=== PATIENT | female | born 1995 | race Caucasian/White ===

== ENCOUNTER 2017-04-26 11:37 | Emergency (ER) | payer SELFPAY ==
[~2017-04-26] VITALS: Ht 160 cm; Wt 68.0 kg
[~2017-04-26 11:37] MED LIST: ACHD5005 PO; ACHYD1T PO; BIRTH CONTROL; CYCL10TA9 PO; IBP600T1 PO; IBUP800T26 PO; LEVO750T6 PO; METR70GE8 VG; NAPR500T PO; NITR-65 PO; OMEP10CA4 PO; ONDA-42 SL; PRD20T PO; PREN-115 PO; SCR1T PO
[2017-04-26] MEDS ORDERED: DEXT30TA12 PO (12:07)
[2017-04-26] MEDS ORDERED: LIDOCAINE 1% INJ 20 ML (XYLOCAINE) VIAL INJ ONE (12:15)
[2017-04-26] MEDS ORDERED: cefTRIAXone 1 GM (ROCEPHIN) VIAL IM ONE (12:15)
[2017-04-26] MEDS ORDERED: HYDR-757 PO (12:16)
[2017-04-26] MEDS ORDERED: ONDA8TAB9 PO (12:16)
[2017-04-26] MEDS ORDERED: AMOX-358 PO (12:16)
--- NOTE | 2017-04-26 12:17 | ED EENT ---
History of Present Illness General Chief Complaint: Dental Problems/Pain Stated Complaint: R SIDE FACIAL SWELLING/DENTAL PAIN Nursing Triage Note: c/o right sided dental pain with facial swelling. Onset 1 week ago. Source: patient Exam Limitations: no limitations History of Present Illness Time seen by provider: 12:13 Initial Comments To ER with right mandible swelling since last night. He is had pain to this location but without swelling for about a month. No fevers. She was delaying seeing a dentist until her dental insurance kicked in with her new job Timing/Duration: abrupt Severity: moderate Location: facial Associated Symptoms: denies symptoms Allergies and Home Medications Allergies Coded Allergies: No Known Drug Allergies (Unverified , 12/07/09) Home Medications Dextroamphetamine/Amphetamine 30 Mg Tablet, 30 MG PO DAILY, #60 (Reported) Review of Systems Constitutional: see HPI Eyes: No Symptoms Reported Ears: No Symptoms Reported Nose: no symptoms reported Mouth: see HPI Throat: no symptoms reported Respiratory: no symptoms reported Cardiovascular: no symptoms reported Past Zlpvysu-Jnlcef-Ybpqgw Hx Patient Social History Alcohol Use: Rarely Uses Recreational Drug Use: No Smoking Status: Current Everyday Smoker Type Used: Cigarettes Recent Foreign Travel: No Contact w/Someone Who Travel: No Recent Infectious Disease Expo: No Recent Hopitalizations: No Seasonal Allergies Seasonal Allergies: No Surgeries HX Surgeries: Yes Surgeries: Gallbladder Respiratory Hx Respiratory Disorders: No Cardiovascular Hx Cardiac Disorders: No Neurological Hx Neurological Disorders: No Reproductive System Hx Reproductive Disorders: No Sexually Transmitted Disease: No HIV/AIDS: No Genitourinary Hx Genitourinary Disorders: No Gastrointestinal Hx Gastrointestinal Disorders: Yes Gastrointestinal Disorders: Gastroesophageal Reflux Musculoskeletal Hx Musculoskeletal Disorders: No Endocrine Hx Endocrine Disorders: No HEENT HX ENT Disorders: No Cancer Hx Cancer: No Psychosocial Hx Psychiatric Problems: No Integumentary HX Skin/Integumentary Disorder: No Blood Transfusions Hx Blood Disorders: No Family Medical History Significant Family History: No Pertinent Family Hx Physical Exam Vital Signs Vital Sign - Last 12Hours 04/26/17 11:57 Temp 97.5 Pulse 70 Resp 16 B/P (MAP) 118/70 O2 Delivery Room Air General Appearance: WD/WN, no apparent distress Eyes: bilateral eye EOMI, bilateral eye PERRL, bilateral eye normal inspection Ears: bilateral ear auricle normal, bilateral ear canal normal Nose: normal inspection, active bleeding Mouth/Throat: other (there is swelling visible to the exterior right mandible. There is some induration to the buccal mucosa of the right side of the mandible however there is no fluctuance to suggest a drainable abscess.) Neck: non-tender, full range of motion Respiratory: no respiratory distress, no accessory muscle use Gastrointestinal: normal bowel sounds, non tender, soft Neurologic/Psychiatric: alert, normal mood/affect, oriented x 3 Skin: normal color, warm/dry Progress/Results/Core Measures Results/Orders My Orders Orders - LUIS NAGY APRN Ceftriaxone Injection (Rocephin Injectio (04/26/17 12:15) Lidocaine 1% Injection (Xylocaine 1% Inj (04/26/17 12:15) Vital Signs/I&O Vital Sign - Last 12Hours 04/26/17 11:57 Temp 97.5 Pulse 70 Resp 16 B/P (MAP) 118/70 O2 Delivery Room Air Blood Pressure Mean: 86 Departure Impression Impression: Primary Impression: Dental abscess Disposition: 01 HOME, SELF-CARE Condition: Stable Departure-Patient Inst. Decision time for Depature: 12:15 Referrals: NOA BLAKE MD (PCP/Family) Primary Care Physician Patient Instructions: Tooth Abscess (DC) Add. Discharge Instructions: 1. Return to ER for any concerns such as worsening swelling or fevers 2. See your dentist next week 3. Antibiotics as directed All discharge instructions reviewed with patient and/or family. Voiced understanding. Scripts Hydrocodone/Acetaminophen ([place]ark[place] 5-325 Tablet) 1 Each Tablet 1 EACH PO Q4H Y for PAIN-MILD TO MODERATE, #10 TAB Prov: LUIS NAGY APRN 04/26/17 Ondansetron (Zofran Odt) 8 Mg Tab.rapdis 8 MG PO Q4H Y for NAUSEA/VOMITING-1ST LINE, #10 TAB Prov: LUIS NAGY APRN 04/26/17 Amoxicillin/Potassium Clav (Augmentin 875-125 Tablet) 1 Each Tablet 1 EACH PO BID, #14 TAB Prov: LUIS NAGY APRN 04/26/17 LUIS NAGY APRN Apr 26, 2017 12:17
[2017-04-26 12:35] VITALS: BP 113/68
--- OUTSIDE RECORDS SUMMARY | 2017-04-29 13:21 | XMS REPORT ---
Author Author MAXIMUS DIAS Organization [employer] Address Unknown Phone Unavailable Care Team Providers Care Loading Dock Hand Name Role Phone MAXIMUS DIAS CP Unavailable Allergies, Adverse Reactions, Alerts Substance Reaction Event Type N.K.D.A. Info Not Available Non Drug Allergy Problems Problem Type Condition Code Onset Dates Condition Status Problem Supervision of normal first V22.0 Active Problem Screening examination for venereal disease V74.5 Active Problem Need for prophylactic vaccination and inoculation against rubella alone V04.3 Active Problem Unspecified disorder of menstruation and other abnormal bleeding from female genital tract 626.9 Active Problem Other specified symptom associated with female genital organs 625.8 Active Problem Major depressive disorder, recurrent episode, moderate 296.32 Active Problem Nausea alone 787.02 Active Problem Other general counseling and advice for contraceptive management V25.09 Active Problem Surveillance of previously prescribed intrauterine contraceptive device V25.42 Active Problem examination or test, positive result V72.42 Active Assessment Dental examination V72.2 Active Problem Encounter for insertion of intrauterine contraceptive device V25.11 Active Problem Maternal mental disorders, complicating , childbirth, or the puerperium, unspecified as to episode of care 648.40 Active Medications No Known Medications Procedures Procedure Coding System Code Date INTRAORL-PERIAPICAL 1 FILM 42223 CPT-4 D0220 Jul 17, 2015 BITEWING - SINGLE FILM CPT-4 D0270 Jul 17, 2015 LTD ORAL EVALUATION - PROBLEM FOCUS CPT-4 D0140 Jul 17, 2015 EXTRAC ERUPTED TOOTH/EXPOSED ROOT CPT-4 D7140 Jul 17, 2015 Vital Signs Date/Time: Jul 17, 2015 Blood Pressure Diastolic 89 mmHg Blood Pressure Systolic 115 mmHg Results No Known Results Summary Purpose [employer] Submission
== END 2017-04-26 12:35 | disposition home or self-care (01) ==
LOC: EDUNIT# 11:37 → ER 11:40
DX: K21.9 Gastro-esophageal reflux disease without esophagitis (principal); K04.7 Periapical abscess without sinus; F17.210 Nicotine dependence, cigarettes, uncomplicated
CPT/HCPCS: 96372; 99282

== ENCOUNTER 2018-01-28 11:32 | Emergency (ER) | payer SELFPAY ==
[~2018-01-28] VITALS: Ht 160 cm; Wt 68.1 kg
[~2018-01-28 11:32] MED LIST changes: +AMOX-358 PO; +DEXT30TA12 PO; +HYDR-757 PO; +NAPR-1071 PO; -NAPR500T PO; +ONDA8TAB9 PO
[2018-01-28] MEDS ORDERED: AMPH30TA2 PO (11:48)
[2018-01-28] MEDS ORDERED: fentaNYL INJECTION 100 MCG/2 ML AMP IVP ONE (12:00)
[2018-01-28] MEDS ORDERED: ONDANSETRON 4 MG/2 ML (SDV) Z0FRAN IVP ONE (12:00)
--- NOTE | 2018-01-28 12:10 | ED Abdominal Pain ---
General Chief Complaint: Abdominal/GI Problems Stated Complaint: RT SIDE PAIN/NAUSEA Nursing Triage Note: TO EXAM ROOM 9 C/O RLQ ABD PAIN THAT STARTED 3 DAYS AGO. TO ALSO HAD N/V. STATES PAIN IS WORSE WITH MOVEMENT ET LYING STILL. PT. ALSO STATES HAS HAD FLU-LIKE SXS FOR MONTH. DID TAKE ZPACK FOR LAST TWO WEEKS. STATES STILL HAS COUGH. Sepsis Screen: Possible Sepsis Risk Source of Information: Patient Exam Limitations: No Limitations History of Present Illness Date Seen by Provider: Jan 28, 2018 Time Seen by Provider: 12:09 Initial Comments To ER with reports of right lower quadrant abdominal pain for the past 2-3 days. Pain is worsened with movement and occasionally radiates to the midline suprapubic area. She has had some urinary frequency and thought initially that this might just be a bladder infection. She took cranberry juice and has been drinking extra water but denies any improvement in symptoms. No fevers or chills. No bowel changes. She does have nausea but no vomiting. Timing/Duration: 2-3 Days Severity/Quality: Moderate Location: RLQ Radiation: No Radiation Activities at Onset: None Allergies and Home Medications Allergies Coded Allergies: No Known Drug Allergies (Unverified , 12/07/09) Home Medications Dextroamphetamine/Amphetamine 30 Mg Tablet, 30 MG PO BID, (Reported) Hydrocodone/Acetaminophen 1 Each Tablet, 1 EACH PO Q4H PRN for PAIN-MILD TO MODERATE Prescribed by: LUIS NAGY on 04/26/17 1216 Patient Home Medication List Home Medication List Reviewed: Yes Review of Systems Constitutional: see HPI EENTM: No Symptoms Reported Respiratory: No Symptoms Reported Cardiovascular: No Symptoms Reported Gastrointestinal: See HPI, Abdominal Pain, Denies Constipated, Denies Diarrhea , Nausea, Denies Vomiting Genitourinary: See HPI, Frequency Musculoskeletal: no symptoms reported Skin: no symptoms reported Endocrine: No Symptoms Reported Past Qyjhxhi-Ndsehk-Svuaie Hx Patient Social History Alcohol Use: Rarely Uses Recreational Drug Use: No Smoking Status: Current Everyday Smoker Type Used: Cigarettes Recent Foreign Travel: No Contact w/Someone Who Travel: No Recent Infectious Disease Expo: No Recent Hopitalizations: No Physical Abuse: No Sexual Abuse: No Seasonal Allergies Seasonal Allergies: No Surgeries History of Surgeries: Yes Surgeries: Gallbladder Respiratory History of Respiratory Disorde: No Cardiovascular History of Cardiac Disorders: No Neurological History of Neurological Disord: No Reproductive System Hx Reproductive Disorders: No Sexually Transmitted Disease: No HIV/AIDS: No Genitourinary History of Genitourinary Disor: No Gastrointestinal History of Gastrointestinal Di: Yes Gastrointestinal Disorders: Gastroesophageal Reflux Musculoskeletal History of Musculoskeletal Dis: No Endocrine History of Endocrine Disorders: No Cancer History of Cancer: No Psychosocial History of Psychiatric Problem: No Suicide Risk Score: 0 Integumentary History of Skin or Integumenta: No Blood Transfusions History of Blood Disorders: No Family Medical History Significant Family History: No Pertinent Family Hx Physical Exam Vital Signs VS - Last 72 Hours, by Label 01/28/18 11:35 Temp 96.8 Pulse 94 Resp 18 B/P (MAP) 137/88 (104) Pulse Ox 100 O2 Delivery Room Air Capillary Refill : Less Than 3 Seconds General Appearance: WD/WN, no apparent distress HEENT: PERRL/EOMI, normal ENT inspection Neck: non-tender, full range of motion Respiratory: no respiratory distress, no accessory muscle use Gastrointestinal: normal bowel sounds, soft, No guarding, No rebound, tenderness Extremities: normal range of motion, non-tender Neurologic/Psychiatric: alert, normal mood/affect, oriented x 3 Skin: normal color, warm/dry Progress/Results/Core Measures Results/Orders Lab Results Laboratory Tests Test 01/28/18 11:56 Range/Units White Blood Count 9.4 4.3-11.0 10^3/uL Red Blood Count 3.94 L 4.35-5.85 10^6/uL Hemoglobin 12.8 11.5-16.0 G/DL Hematocrit 38 35-52 % Mean Corpuscular Volume 96 80-99 FL Mean Corpuscular Hemoglobin 33 25-34 PG Mean Corpuscular Hemoglobin Concent 34 32-36 G/DL Red Cell Distribution Width 15.0 H 10.0-14.5 % Platelet Count 292 130-400 10^3/uL Mean Platelet Volume 9.9 7.4-10.4 FL Neutrophils (%) (Auto) 67 42-75 % Lymphocytes (%) (Auto) 24 12-44 % Monocytes (%) (Auto) 9 0-12 % Eosinophils (%) (Auto) 1 0-10 % Basophils (%) (Auto) 0 0-10 % Neutrophils # (Auto) 6.2 1.8-7.8 X 10^3 Lymphocytes # (Auto) 2.2 1.0-4.0 X 10^3 Monocytes # (Auto) 0.8 0.0-1.0 X 10^3 Eosinophils # (Auto) 0.1 0.0-0.3 10^3/uL Basophils # (Auto) 0.0 0.0-0.1 10^3/uL Urine Color YELLOW Urine Clarity SLIGHTLY CLOUDY Urine pH 7 5-9 Urine Specific [place] 1.010 L 1.016-1.022 Urine Protein NEGATIVE NEGATIVE Urine Glucose (UA) NEGATIVE NEGATIVE Urine Ketones NEGATIVE NEGATIVE Urine Nitrite NEGATIVE NEGATIVE Urine Bilirubin NEGATIVE NEGATIVE Urine Urobilinogen NORMAL NORMAL MG/DL Urine Leukocyte Esterase 1+ H NEGATIVE Urine RBC (Auto) NEGATIVE NEGATIVE Urine RBC NONE /HPF Urine WBC RARE /HPF Urine Squamous Epithelial Cells 5-10 /HPF Urine Crystals PRESENT H /LPF Urine Amorphous Sediment LARGE SATINDER PHOSPHATE H /LPF Urine Bacteria TRACE /HPF Urine Casts NONE /LPF Urine Mucus NEGATIVE /LPF Urine Culture Indicated NO Sodium Level 139 135-145 MMOL/L Potassium Level 3.5 L 3.6-5.0 MMOL/L Chloride Level 104 98-107 MMOL/L Carbon Dioxide Level 25 21-32 MMOL/L Anion Gap 10 5-14 MMOL/L Blood Urea Nitrogen 9 7-18 MG/DL Creatinine 0.73 0.60-1.30 MG/DL Estimat Glomerular Filtration Rate > 60 BUN/Creatinine Ratio 12 Glucose Level 92 70-105 MG/DL Calcium Level 9.4 8.5-10.1 MG/DL Total Bilirubin 0.2 0.1-1.0 MG/DL Aspartate Amino Transf (AST/SGOT) 19 5-34 U/L Alanine Aminotransferase (ALT/SGPT) 14 0-55 U/L Alkaline Phosphatase 52 40-136 U/L Total Protein 6.6 6.4-8.2 GM/DL Albumin 4.1 3.2-4.5 GM/DL My Orders Orders - LUIS NAGY [employer] Ua Culture If Indicated (01/28/18 11:49) Urine Bedside (01/28/18 11:49) Cbc With Automated Diff (01/28/18 11:49) Comprehensive Metabolic Panel (01/28/18 11:49) Saline Lock/Iv-Start (01/28/18 11:49) Fentanyl Injection (Sublimaze Injection (01/28/18 12:00) Ondansetron Injection (Zofran Injectio (01/28/18 12:00) Ct Abd/Pelv W (Appendicitis) (01/28/18 11:59) Iohexol Injection (Omnipaque 350 Mg/Ml 1 (01/28/18 12:15) Sodium Chloride Flush (Catheter Flush Sy (01/28/18 12:15) Ns (Ivpb) (Sodium Chloride 0.9%) (01/28/18 12:15) Pharmacy Communication (Pharmacy Communi (01/28/18 12:02) Wet Prep (01/28/18 13:02) Neisseria Gonorrhea Dna (01/28/18 13:02) Chlamydia Dna (01/28/18 13:02) Genital Culture (01/28/18 13:02) Medications Given in ED Current Medications Medications Dose Ordered Sig/Trudy Route Start Time Stop Time Status Last Admin Dose Admin Fentanyl Citrate 50 mcg ONCE ONCE IVP 01/28/18 12:00 01/28/18 12:01 DC 01/28/18 12:09 50 MCG Iohexol 100 ml ONCE ONCE IV 01/28/18 12:15 01/28/18 12:16 DC 01/28/18 12:23 100 ML Ondansetron HCl 4 mg ONCE ONCE IVP 01/28/18 12:00 01/28/18 12:01 DC 01/28/18 12:10 4 MG Sodium Chloride 250 ml ONCE ONCE IV 01/28/18 12:15 01/28/18 12:16 DC 01/28/18 12:23 80 ML Vital Signs/I&O Vital Sign - Last 12Hours 01/28/18 11:35 Temp 96.8 Pulse 94 Resp 18 B/P (MAP) 137/88 (104) Pulse Ox 100 O2 Delivery Room Air Blood Pressure Mean: 104 Diagnostic Imaging Diagonstic Imaging: CT Plain Films/CT/US/NM/MRI: abdomen, pelvis Comments NAME: ANNE OATES Sayda [facility] REC#: [id number] PT STATUS: REG ER : 1995 PHYSICIAN: LUIS NAGY APRN ADMIT DATE: 01/28/18/ER Signed Date of Exam:01/28/18 CT ABD/PELV W (APPENDICITIS) PROCEDURE: CT abdomen and pelvis with contrast, rule out appendicitis. TECHNIQUE: Multiple contiguous axial images were obtained through the abdomen and pelvis after the administration of intravenous contrast. INDICATION: Right-sided abdominal pain for 3 days. COMPARISON: 12/20/2013 FINDINGS: Lower chest: The lung bases are clear. No pericardial or pleural effusion. Peritoneum: Trace free pelvic fluid. No free intraperitoneal air. Liver and biliary system: Focal fatty infiltration along the falciform ligament. Otherwise, liver is normal. Cholecystectomy. No biliary duct dilatation. Spleen and Pancreas: Spleen is normal. The pancreas enhances normally without mass lesion or peripancreatic inflammatory changes. Adrenals: Normal. tract: The kidneys enhance normally without suspicious mass or obstruction. Urinary bladder is distended without wall thickening. Uterus and ovaries are physiologic in appearance for patient's age. There are numerous mildly dilated vessels around the uterus. GI tract: Stomach is decompressed. No bowel obstruction. No pericolonic inflammatory changes. Normal appendix (seen on image 43, series 4). Vasculature and Lymph nodes: Normal caliber aorta. No abdominal or pelvic lymphadenopathy. Musculoskeletal: No concerning osseous lesion. IMPRESSION: 1. No acute obstructive or inflammatory process in the abdomen or pelvis. Normal appendix. 2. Trace free pelvic fluid is likely physiologic in a female of this age. Dictated by: Dictated on workstation # [id number] Dict: 01/28/18 1245 Trans: 01/28/18 1259 [facility] [id number] Interpreted by: NIGHAT HERNANDEZ MD Electronically signed by: NIGHAT HERNANDEZ MD 01/28/18 1259 Departure Communication (Admissions) Progress Notes 1310- patient does have improvement in pain though there is still some residual pain. She states that her menstrual periods have been very irregular since her 2 sisters moved into the house with her and she believes she may be getting on their menstrual cycle in addition to her own. She is not on control. She has had no unusual vaginal discharge. I did discuss with her the normal-appearing labs urine and CT scan. The next step would be to do a pelvic exam and cervical swabs however she does not feel that is the problem and would rather not do that at this time. I did advise her to follow-up with Dr. Blake to discuss control to help regulate her menstrual cycles this is a persistent problem for her and for further evaluation of this. She also asks about a bladder infection that she may have fallen out on her own without antibiotics and is just having some residual cystitis without infection. That would be unlikely but not impossible. We will discharge to home at this time she has no further questions. Impression Impression: Primary Impression: Right lower quadrant abdominal pain Disposition: 01 HOME, SELF-CARE Condition: Improved Departure-Patient Inst. Decision time for Depature: 13:11 Referrals: NOA BLAKE MD (PCP/Family) Primary Care Physician Patient Instructions: Acute Abdomen (Belly Pain), Adult (DC) Add. Discharge Instructions: 1. Return to ER for any unusual vaginal discharge, worsening pain, fevers or other concerns. All discharge instructions reviewed with patient and/or family. Voiced understanding. Copy Copies To 1: NOA BLAKE MD, PETER J APRN Jan 28, 2018 12:10
[2018-01-28 12:15] LABS: BASOPHILS % (AUTO) 0 % (0-10); EOSINOPHILS # (AUTO) 0.1 10^3/uL (0.0-0.3); EOSINOPHILS % (AUTO) 1 % (0-10); HEMATOCRIT 38 % (35-52); HEMOGLOBIN 12.8 G/DL (11.5-16.0); LYMPHOCYTES # (AUTO) 2.2 X 10^3 (1.0-4.0); LYMPHOCYTES % (AUTO) 24 % (12-44); MEAN CORPUSCULAR HEMOGLOBIN 33 PG (25-34); MEAN CORPUSCULAR HGB CONC 34 G/DL (32-36); MEAN CORPUSCULAR VOLUME 96 FL (80-99); MEAN PLATELET VOLUME 9.9 FL (7.4-10.4); MONOCYTES # (AUTO) 0.8 X 10^3 (0.0-1.0); MONOCYTES % (AUTO) 9 % (0-12); NEUTROPHILS # (AUTO) 6.2 X 10^3 (1.8-7.8); NEUTROPHILS % (AUTO) 67 % (42-75); PLATELET COUNT 292 10^3/uL (130-400); RED BLOOD COUNT 3.94 10^6/uL (4.35-5.85); WHITE BLOOD COUNT 9.4 10^3/uL (4.3-11.0)
[2018-01-28] MEDS ORDERED: NS 250 ML (IVPB) BAG IV ONE (12:15)
[2018-01-28] MEDS ORDERED: IOHEXOL 350 MG/ML 100 ML (OMNIPAQUE 350) VIAL IV ONE (12:15)
[2018-01-28] MEDS ORDERED: CATHETER FLUSH 10 ML SYR IV PRN (12:15)
[2018-01-28 12:19] LABS: BILIRUBIN,URINE NEGATIVE (NEGATIVE); CLARITY,URINE SLIGHTLY CLOUDY; COLOR,URINE YELLOW; GLUCOSE, URINE (UA) NEGATIVE (NEGATIVE); KETONES,URINE NEGATIVE (NEGATIVE); LEUKOCYTE ESTERASE ,URINE 1+ (NEGATIVE); NITRITE,URINE NEGATIVE (NEGATIVE); PH,URINE 7 (5-9); PROTEIN,URINE NEGATIVE (NEGATIVE); UROBILINOGEN,URINE NORMAL (NORMAL)
[2018-01-28 12:35] LABS: ALANINE AMINOTRANSFERASE 14 U/L (0-55); ALBUMIN 4.1 GM/DL (3.2-4.5); ALKALINE PHOSPHATASE 52 U/L (40-136); BILIRUBIN,TOTAL 0.2 MG/DL (0.1-1.0); BUN/CREATININE RATIO 12; CALCIUM 9.4 MG/DL (8.5-10.1); CARBON DIOXIDE 25 MMOL/L (21-32); CHLORIDE 104 MMOL/L (98-107); CREATININE SERUM 0.73 MG/DL (0.60-1.30); GFR ESTIMATED > 60; GLUCOSE 92 MG/DL (70-105); POTASSIUM 3.5 MMOL/L (3.6-5.0); SODIUM 139 MMOL/L (135-145); TOTAL PROTEIN 6.6 GM/DL (6.4-8.2)
[2018-01-28 12:38] LABS: AMORPHOUS SEDIMENT,UR LARGE AMOR PHOSPHATE /LPF; BACTERIA,URINE TRACE /HPF; WBC,URINE RARE /HPF
--- NOTE | 2018-01-28 12:56 | Diagnostic Imaging Report ---
PROCEDURE: CT abdomen and pelvis with contrast, rule out appendicitis. TECHNIQUE: Multiple contiguous axial images were obtained through the abdomen and pelvis after the administration of intravenous contrast. INDICATION: Right-sided abdominal pain for 3 days. COMPARISON: 12/20/2013 FINDINGS: Lower chest: The lung bases are clear. No pericardial or pleural effusion. Peritoneum: Trace free pelvic fluid. No free intraperitoneal air. Liver and biliary system: Focal fatty infiltration along the falciform ligament. Otherwise, liver is normal. Cholecystectomy. No biliary duct dilatation. Spleen and Pancreas: Spleen is normal. The pancreas enhances normally without mass lesion or peripancreatic inflammatory changes. Adrenals: Normal. tract: The kidneys enhance normally without suspicious mass or obstruction. Urinary bladder is distended without wall thickening. Uterus and ovaries are physiologic in appearance for patient's age. There are numerous mildly dilated vessels around the uterus. GI tract: Stomach is decompressed. No bowel obstruction. No pericolonic inflammatory changes. Normal appendix (seen on image 43, series 4). Vasculature and Lymph nodes: Normal caliber aorta. No abdominal or pelvic lymphadenopathy. Musculoskeletal: No concerning osseous lesion. IMPRESSION: 1. No acute obstructive or inflammatory process in the abdomen or pelvis. Normal appendix. 2. Trace free pelvic fluid is likely physiologic in a female of this age. Dictated by: Dictated on workstation # [id number]
[2018-01-28 13:15] VITALS: BP 137/88
== END 2018-01-28 13:15 | disposition home or self-care (01) ==
LOC: EDUNIT# 11:32 → ER 11:34
DX: R10.31 Right lower quadrant pain (principal); K21.9 Gastro-esophageal reflux disease without esophagitis; F17.210 Nicotine dependence, cigarettes, uncomplicated
CPT/HCPCS: 36415; 74177; 80053; 81000; 84703; 85025; 96374; 96375

== ENCOUNTER 2018-11-19 11:49 | Emergency (ER) | payer SELFPAY, OTHER | END 2018-11-19 12:06 | disposition left against medical advice (07) | LOC: ER 11:49 ==

== ENCOUNTER 2019-05-24 08:54 | Emergency (ER) | payer MEDICAID, OTHER ==
[~2019-05-24] VITALS: Ht 180.3 cm; Wt 72.6 kg
[~2019-05-24 08:54] MED LIST changes: +AMPH30TA2 PO; +HYDR-4226 PO; -HYDR-757 PO
--- OUTSIDE RECORDS SUMMARY | 2019-05-24 08:59 | XMS REPORT ---
Author Author Migration, Doctor Organization [facility] Address Unknown Phone Unavailable Care Team Providers Care Nematology Teacher Name Role Phone Migration, Doctor Unavailable Unavailable PROBLEMS Type Condition ICD9-CM Code [id number] Code Onset Dates Condition Status SNOMED Code Problem Other general counseling and advice for contraceptive management V25.09 Active 567327828 Problem examination or test, positive result V72.42 Active 095028290 Problem Need for prophylactic vaccination and inoculation against rubella alone V04.3 Active 433208017 Problem Encounter for insertion of intrauterine contraceptive device V25.11 Active 61686098 Problem Maternal mental disorders, complicating , childbirth, or the puerperium, unspecified as to episode of care 648.40 Active 175473101 Problem Surveillance of previously prescribed intrauterine contraceptive device V25.42 Active 910117076128245 Problem Major depressive disorder, recurrent episode, moderate 296.32 Active 31770687 Problem Screening examination for venereal disease V74.5 Active 687195993 Problem Supervision of normal first V22.0 Active 760290902 Problem Nausea alone 787.02 Active 099741806 Problem Unspecified disorder of menstruation and other abnormal bleeding from female genital tract 626.9 Active 122530866 Problem Other specified symptom associated with female genital organs 625.8 Active 179599823 ALLERGIES No Information ENCOUNTERS Encounter Location Date Diagnosis [facility] [id number] [place] [address] Oct, Abdominal pain R10.9 [facility] [id number] [place] [id number] Apr, Dental examination Z01.20 and Dental caries K02.9 [facility] [id number] [place] [address] Jan, Acute vomiting R11.10 and Acute diarrhea R19.7 [facility] [address] [id number] Jun, Dental examination V72.2 [facility] [place] [facility] [address] [id number] [place] [address] 14 Jan, 2015 [facility] [place] [facility] [address] [id number] [place] [address] Jan, [facility] [place] [facility] [address] [id number] [place] [address] Mar, [facility] [place] [facility] [address] [id number] [place] [address] Mar, [facility] [place] [facility] [address] [id number] [place] [address] Jan, [facility] [place] [facility] [address] [id number] [place] [address] Jan, [facility] [place] [facility] [address] [id number] [place] [address] Jan, [facility] [place] [facility] [address] [id number] [place] [address] Jan, [facility] [place] [facility] [address] [id number] [place] [address] Jan, [facility] [place] [facility] [address] [id number] [place] [address] 16 Jan, 2014 [facility] [place] [facility] [address] [id number], [place] [address] 14 Jan, 2014 [facility] [place] [facility] [address] [id number], [place] [address] 10 Jan, 2014 [facility] [place] [facility] [address] [id number] [place] [address] 10 Jan, 2014 [facility] [place] [facility] [address] [id number], [place] [address] 08 Jan, 2014 [facility] [place] [facility] [address] [id number] [place] [address] 08 Jan, 2014 [facility] [place] [facility] [address] [id number] [place] [address] Jan, [facility] [place] [facility] [address] [id number] [place] [address] Jan, [facility] [place] [facility] [address] [id number] [place] [address] Dec, [facility] [place] [facility] [address] [id number] [place] [address] Dec, [facility] [place] [facility] [address] [id number] [place] [address] Dec, [facility] [place] [facility] [address] [id number] [place] [address] Dec, [facility] [place] [facility] [address] [facility] [id number] [place] [address] Dec, [facility] [place] [facility] [address] [id number] [place] [address] Dec, [facility] [place] [facility] [address] [id number] [place] [address] Nov, [facility] [place] [facility] [address] [facility] [id number] [place] [address] Nov, [facility] [place] [facility] [address] [facility] [id number] [place] [address] Nov, [facility] [place] [facility] [address] [facility] [id number] [place] [address] Nov, [facility] [place] [facility] [address] [id number] [place] [address] Nov, [facility] [place] [facility] [address] [id number] [place] [address] Nov, [facility] [place] [facility] [address] [facility] [id number] [place] [address] Oct, [facility] [place] [facility] [address] [id number] [place] [address] Oct, [facility] [place] [facility] [address] [id number] [place] [address] Jul, [facility] [place] [facility] [address] [id number] [place] [address] Jul, [facility] [place] [facility] [address] [id number] [place] [address] Jul, [facility] [place] [facility] [address] [id number] [place] [address] Jul, [facility] [place] [facility] [address] [id number] [place] [address] Jun, [facility] [place] [facility] [address] [id number] [place] [address] May, [facility] [place] [facility] [address] [id number] [place] [address] Apr, [facility] [place] [facility] [address] [id number] [place] [address] Apr, [facility] [place] [facility] [address] [id number] [place] [address] Apr, [facility] [place] [facility] [address] [id number] [place] [address] Mar, [facility] [place] [facility] [address] [id number], [place] [address] Mar, [facility] [place] [facility] [address] [id number], [place] [address] Mar, [facility] [place] [facility] [address] [id number] [place] [address] Mar, [facility] [place] [facility] [address] [id number] [place] [address] Mar, [facility] [place] [facility] [address] [id number] [place] [address] Mar, [facility] [place] [facility] [address] [id number], [place] [address] Mar, [facility] [address] [facility] [id number], [place] [address] February, [facility] [address] [facility] [id number], [place] [address] February, [facility] [address], [place] [address] February, [facility] [address] [facility] [id number], [place] [address] February, [facility] [address]65[address], [place] [address] February, [facility] [address], [place] [address] February, [facility] [address], [place] [address] February, [facility] [address], [place] [address] February, [facility] [address], [place] [address] Jul, [facility] [address] [id number], [place] [address] Jul, IMMUNIZATIONS No Known Immunizations SOCIAL HISTORY Never Assessed REASON FOR VISIT [facility] PLAN OF CARE VITAL SIGNS MEDICATIONS No Known Medications RESULTS No Results PROCEDURES No Known procedures INSTRUCTIONS MEDICATIONS ADMINISTERED No Known Medications MEDICAL (GENERAL) HISTORY Type Description Date Medical History ADD Surgical History Gallbladder removed
--- OUTSIDE RECORDS SUMMARY | 2019-05-24 08:59 | XMS REPORT ---
Author Author Migration, Doctor Organization [facility] Address Unknown Phone Unavailable Care Team Providers Care Audit Director Name Role Phone Migration, Doctor Unavailable Unavailable PROBLEMS Type Condition ICD9-CM Code UUG62-DL Code Onset Dates Condition Status SNOMED Code Problem Other general counseling and advice for contraceptive management V25.09 Active 096525207 Problem examination or test, positive result V72.42 Active 601859670 Problem Need for prophylactic vaccination and inoculation against rubella alone V04.3 Active 062837642 Problem Encounter for insertion of intrauterine contraceptive device V25.11 Active 42297139 Problem Maternal mental disorders, complicating , childbirth, or the puerperium, unspecified as to episode of care 648.40 Active 943222793 Problem Surveillance of previously prescribed intrauterine contraceptive device V25.42 Active 543047802948948 Problem Major depressive disorder, recurrent episode, moderate 296.32 Active 59243392 Problem Screening examination for venereal disease V74.5 Active 304884404 Problem Supervision of normal first V22.0 Active 653353545 Problem Nausea alone 787.02 Active 733750174 Problem Unspecified disorder of menstruation and other abnormal bleeding from female genital tract 626.9 Active 577328601 Problem Other specified symptom associated with female genital organs 625.8 Active 410192639 ALLERGIES No Information ENCOUNTERS Encounter Location Date Diagnosis [facility] [id number] [place] [address] Oct, Abdominal pain R10.9 [facility] [id number] [place] [id number] Apr, Dental examination Z01.20 and Dental caries K02.9 [facility] [id number] [place] [address] Jan, Acute vomiting R11.10 and Acute diarrhea R19.7 [facility] [address] [id number] Jun, Dental examination V72.2 [facility] [place] [facility] [address] [id number] [place] [address] 14 Jan, 2015 [facility] [place] [facility] [address] [id number] [place] [address] Jan, [facility] [place] [facility] [address] [id number] [place] [address] Mar, [facility] [place] [facility] [address] [id number] [place] [address] Mar, [facility] [place] [facility] [address] [id number] [place] [address] Jan, [facility] [place] [facility] [address] [id number] [place] [address] Jan, [facility] [place] [facility] [address] [id number] [place] [address] Jan, [facility] [place] [facility] [address] [id number] [place] [address] Jan, [facility] [place] [facility] [address] [id number] [place] [address] Jan, [facility] [place] [facility] [address] [id number] [place] [address] 16 Jan, 2014 [facility] [place] [facility] [address] [id number], [place] [address] 14 Jan, 2014 [facility] [place] [facility] [address] [id number], [place] [address] 10 Jan, 2014 [facility] [place] [facility] [address] [id number] [place] [address] 10 Jan, 2014 [facility] [place] [facility] [address] [id number], [place] [address] 08 Jan, 2014 [facility] [place] [facility] [address] [id number] [place] [address] 08 Jan, 2014 [facility] [place] [facility] [address] [id number] [place] [address] Jan, [facility] [place] [facility] [address] [id number] [place] [address] Jan, [facility] [place] [facility] [address] [id number] [place] [address] Dec, [facility] [place] [facility] [address] [id number] [place] [address] Dec, [facility] [place] [facility] [address] [id number] [place] [address] Dec, [facility] [place] [facility] [address] [id number] [place] [address] Dec, [facility] [place] [facility] [address] [facility] [id number] [place] [address] Dec, [facility] [place] [facility] [address] [id number] [place] [address] Dec, [facility] [place] [facility] [address] [id number] [place] [address] Nov, [facility] [place] [facility] [address] [facility] [id number] [place] [address] Nov, [facility] [place] [facility] [address] [facility] [id number] [place] [address] Nov, [facility] [place] [facility] [address] [facility] [id number] [place] [address] Nov, [facility] [place] [facility] [address] [id number] [place] [address] Nov, [facility] [place] [facility] [address] [id number] [place] [address] Nov, [facility] [place] [facility] [address] [facility] [id number] [place] [address] Oct, [facility] [place] [facility] [address] [id number] [place] [address] Oct, [facility] [place] [facility] [address] [id number] [place] [address] Jul, [facility] [place] [facility] [address] [id number] [place] [address] Jul, [facility] [place] [facility] [address] [id number] [place] [address] Jul, [facility] [place] [facility] [address] [id number] [place] [address] Jul, [facility] [place] [facility] [address] [id number] [place] [address] Jun, [facility] [place] [facility] [address] [id number] [place] [address] May, [facility] [place] [facility] [address] [id number] [place] [address] Apr, [facility] [place] [facility] [address] [id number] [place] [address] Apr, [facility] [place] [facility] [address] [id number] [place] [address] Apr, [facility] [place] [facility] [address] [id number] [place] [address] Mar, [facility] [place] [facility] [address] [id number], [place] [address] Mar, [facility] [place] [facility] [address] [id number], [place] [address] Mar, [facility] [place] [facility] [address] [id number] [place] [address] Mar, [facility] [place] [facility] [address] [id number] [place] [address] Mar, [facility] [place] [facility] [address] [id number] [place] [address] Mar, [facility] [place] [facility] [address] [id number], [place] [address] Mar, [facility] [id number], [place] [address] February, [facility] [address], [place] [address] February, [facility] [address], [place] [address] February, [facility] [address], [place] [address] February, [facility] [address], [place] [address] February, [facility] [address], [place] [address] February, [facility] [address], [place] [address] February, [facility] [address], [place] [address] February, [facility] [address], [place] [address] Jul, [facility] [id number], [place] [address] Jul, IMMUNIZATIONS No Known Immunizations SOCIAL HISTORY Never Assessed REASON FOR VISIT [facility] PLAN OF CARE VITAL SIGNS MEDICATIONS Medication Instructions Dosage Frequency Start Date End Date Duration Status Diflucan 150 mg take 1 tablet by Oral route once 1 time per day . Start after doxycycline Jan, Active Doxycycline Hyclate 100 mg take 1 tablet (100 mg) by oral route 2 times per day for 7 days Jan, Active Zoloft 50 mg 1 tablet by Oral route 1 time per day Dec, Active Flagyl 500 mg 1 tablet by Oral route 2 times per day for 7 days Dec, Active Adderall 15 mg take 1 tablet (15 mg) by oral route once daily before breakfast Jan, Active RESULTS No Results PROCEDURES No Known procedures INSTRUCTIONS MEDICATIONS ADMINISTERED No Known Medications MEDICAL (GENERAL) HISTORY Type Description Date Medical History ADD Surgical History Gallbladder removed
--- OUTSIDE RECORDS SUMMARY | 2019-05-24 08:59 | XMS REPORT ---
Author Author Migration, Doctor Organization [facility] Address Unknown Phone Unavailable Care Team Providers Care Central Office Installer Name Role Phone Migration, Doctor Unavailable Unavailable PROBLEMS Type Condition ICD9-CM Code [id number] Code Onset Dates Condition Status SNOMED Code Problem Other general counseling and advice for contraceptive management V25.09 Active 271479679 Problem examination or test, positive result V72.42 Active 898064660 Problem Need for prophylactic vaccination and inoculation against rubella alone V04.3 Active 678265508 Problem Encounter for insertion of intrauterine contraceptive device V25.11 Active 10017884 Problem Maternal mental disorders, complicating , childbirth, or the puerperium, unspecified as to episode of care 648.40 Active 850460295 Problem Surveillance of previously prescribed intrauterine contraceptive device V25.42 Active 383586480688644 Problem Major depressive disorder, recurrent episode, moderate 296.32 Active 99916908 Problem Screening examination for venereal disease V74.5 Active 325215034 Problem Supervision of normal first V22.0 Active 983682790 Problem Nausea alone 787.02 Active 416939288 Problem Unspecified disorder of menstruation and other abnormal bleeding from female genital tract 626.9 Active 623645561 Problem Other specified symptom associated with female genital organs 625.8 Active 675323485 ALLERGIES No Information ENCOUNTERS Encounter Location Date Diagnosis [facility] [id number] [place] [address] Oct, Abdominal pain R10.9 [facility] [id number] [place] [id number] Apr, Dental examination Z01.20 and Dental caries K02.9 [facility] [id number] [place] [address] Jan, Acute vomiting R11.10 and Acute diarrhea R19.7 [facility] [address] [id number] Jun, Dental examination V72.2 [facility] [place] [facility] [address] [id number] [place] [address] 14 Jan, 2015 [facility] [place] [facility] [address] [id number] [place] [address] Jan, [facility] [place] [facility] [address] [id number] [place] [address] Mar, [facility] [place] [facility] [address] [id number] [place] [address] Mar, [facility] [place] [facility] [address] [id number] [place] [address] Jan, [facility] [place] [facility] [address] [id number] [place] [address] Jan, [facility] [place] [facility] [address] [id number] [place] [address] Jan, [facility] [place] [facility] [address] [id number] [place] [address] Jan, [facility] [place] [facility] [address] [id number] [place] [address] Jan, [facility] [place] [facility] [address] [id number] [place] [address] 16 Jan, 2014 [facility] [place] [facility] [address] [id number], [place] [address] 14 Jan, 2014 [facility] [place] [facility] [address] [id number], [place] [address] 10 Jan, 2014 [facility] [place] [facility] [address] [id number] [place] [address] 10 Jan, 2014 [facility] [place] [facility] [address] [id number], [place] [address] 08 Jan, 2014 [facility] [place] [facility] [address] [id number] [place] [address] 08 Jan, 2014 [facility] [place] [facility] [address] [id number] [place] [address] Jan, [facility] [place] [facility] [address] [id number] [place] [address] Jan, [facility] [place] [facility] [address] [id number] [place] [address] Dec, [facility] [place] [facility] [address] [id number] [place] [address] Dec, [facility] [place] [facility] [address] [id number] [place] [address] Dec, [facility] [place] [facility] [address] [id number] [place] [address] Dec, [facility] [place] [facility] [address] [facility] [id number] [place] [address] Dec, [facility] [place] [facility] [address] [id number] [place] [address] Dec, [facility] [place] [facility] [address] [id number] [place] [address] Nov, [facility] [place] [facility] [address] [facility] [id number] [place] [address] Nov, [facility] [place] [facility] [address] [facility] [id number] [place] [address] Nov, [facility] [place] [facility] [address] [facility] [id number] [place] [address] Nov, [facility] [place] [facility] [address] [id number] [place] [address] Nov, [facility] [place] [facility] [address] [id number] [place] [address] Nov, [facility] [place] [facility] [address] [facility] [id number] [place] [address] Oct, [facility] [place] [facility] [address] [id number] [place] [address] Oct, [facility] [place] [facility] [address] [id number] [place] [address] Jul, [facility] [place] [facility] [address] [id number] [place] [address] Jul, [facility] [place] [facility] [address] [id number] [place] [address] Jul, [facility] [place] [facility] [address] [id number] [place] [address] Jul, [facility] [place] [facility] [address] [id number] [place] [address] Jun, [facility] [place] [facility] [address] [id number] [place] [address] May, [facility] [place] [facility] [address] [id number] [place] [address] Apr, [facility] [place] [facility] [address] [id number] [place] [address] Apr, [facility] [place] [facility] [address] [id number] [place] [address] Apr, [facility] [place] [facility] [address] [id number] [place] [address] Mar, [facility] [place] [facility] [address] [id number], [place] [address] Mar, [facility] [place] [facility] [address] [id number], [place] [address] Mar, [facility] [place] [facility] [address] [id number] [place] [address] Mar, [facility] [place] [facility] [address] [id number] [place] [address] Mar, [facility] [place] [facility] [address] [id number] [place] [address] Mar, [facility] [place] [facility] [address] [id number] [address] Mar, [facility] [address] [facility] [id number], [place] [address] February, [facility] [address] [facility] [id number], [place] [address] February, [facility] [id number] [address] February, [facility] [address] [facility] [id number], [place] [address] February, [facility] [id number], [place] [address] February, [facility] [id number], [place] [address] February, [facility] [id number], [place] [address] February, [facility] [id number], [place] [address] February, [facility] [id number], [place] [address] Jul, [facility] [address] [id number], [place] [address] Jul, IMMUNIZATIONS No Known Immunizations SOCIAL HISTORY Never Assessed REASON FOR VISIT [facility] [place] PLAN OF CARE VITAL SIGNS MEDICATIONS No Known Medications RESULTS No Results PROCEDURES No Known procedures INSTRUCTIONS MEDICATIONS ADMINISTERED No Known Medications MEDICAL (GENERAL) HISTORY Type Description Date Medical History ADD Surgical History Gallbladder removed
--- OUTSIDE RECORDS SUMMARY | 2019-05-24 09:00 | XMS REPORT ---
Author Author Migration, Doctor Organization [facility] Address Unknown Phone Unavailable Care Team Providers Care Sales/Marketing Name Role Phone Migration, Doctor Unavailable Unavailable PROBLEMS Type Condition ICD9-CM Code SGA60-HM Code Onset Dates Condition Status SNOMED Code Problem Other general counseling and advice for contraceptive management V25.09 Active 040539120 Problem examination or test, positive result V72.42 Active 685770869 Problem Need for prophylactic vaccination and inoculation against rubella alone V04.3 Active 327646916 Problem Encounter for insertion of intrauterine contraceptive device V25.11 Active 53245244 Problem Maternal mental disorders, complicating , childbirth, or the puerperium, unspecified as to episode of care 648.40 Active 586514534 Problem Surveillance of previously prescribed intrauterine contraceptive device V25.42 Active 121923145581942 Problem Major depressive disorder, recurrent episode, moderate 296.32 Active 13462037 Problem Screening examination for venereal disease V74.5 Active 455639068 Problem Supervision of normal first V22.0 Active 136529712 Problem Nausea alone 787.02 Active 757111686 Problem Unspecified disorder of menstruation and other abnormal bleeding from female genital tract 626.9 Active 900263534 Problem Other specified symptom associated with female genital organs 625.8 Active 206804513 ALLERGIES No Information ENCOUNTERS Encounter Location Date Diagnosis [facility] [id number] [place] [address] Oct, Abdominal pain R10.9 [facility] [id number] [place] [id number] Apr, Dental examination Z01.20 and Dental caries K02.9 [facility] [id number] [place] [address] Jan, Acute vomiting R11.10 and Acute diarrhea R19.7 [facility] [address] [id number] Jun, Dental examination V72.2 [facility] [place] [facility] [address] [id number] [place] [address] 14 Jan, 2015 [facility] [place] [facility] [address] [id number] [place] [address] Jan, [facility] [place] [facility] [address] [id number] [place] [address] Mar, [facility] [place] [facility] [address] [id number] [place] [address] Mar, [facility] [place] [facility] [address] [id number] [place] [address] Jan, [facility] [place] [facility] [address] [id number] [place] [address] Jan, [facility] [place] [facility] [address] [id number] [place] [address] Jan, [facility] [place] [facility] [address] [id number] [place] [address] Jan, [facility] [place] [facility] [address] [id number] [place] [address] Jan, [facility] [place] [facility] [address] [id number] [place] [address] 16 Jan, 2014 [facility] [place] [facility] [address] [id number] [address] 14 Jan, 2014 [facility] [place] [facility] [address] [id number], [place] [address] 10 Jan, 2014 [facility] [place] [facility] [address] [id number] [place] [address] 10 Jan, 2014 [facility] [place] [facility] [address] [id number][place] [address] 08 Jan, 2014 [facility] [place] [facility] [address] [id number] [place] [address] 08 Jan, 2014 [facility] [place] [facility] [address] [id number] [place] [address] Jan, [facility] [place] [facility] [address] [id number] [place] [address] Jan, [facility] [place] [facility] [address] [id number] [place] [address] Dec, [facility] [place] [facility] [address] [id number] [place] [address] Dec, [facility] [place] [facility] [address] [id number] [place] [address] Dec, [facility] [place] [facility] [address] [id number] [place] [address] Dec, [facility] [place] [facility] [address] [facility] [id number] [place] [address] Dec, [facility] [place] [facility] [address] [id number] [place] [address] Dec, [facility] [place] [facility] [address] [id number] [place] [address] Nov, [facility] [place] [facility] [address] [facility] [id number] [place] [address] Nov, [facility] [place] [facility] [address] [facility] [id number] [place] [address] Nov, [facility] [place] [facility] [address] [facility] [id number] [place] [address] Nov, [facility] [place] [facility] [address] [id number] [place] [address] Nov, [facility] [place] [facility] [address] [id number] [place] [address] Nov, [facility] [place] [facility] [address] [facility] [id number] [place] [address] Oct, [facility] [place] [facility] [address] [id number] [place] [address] Oct, [facility] [place] [facility] [address] [id number] [place] [address] Jul, [facility] [place] [facility] [address] [id number] [place] [address] Jul, [facility] [place] [facility] [address] [id number] [place] [address] Jul, [facility] [place] [facility] [address] [id number] [place] [address] Jul, [facility] [place] [facility] [address] [id number] [place] [address] Jun, [facility] [place] [facility] [address] [id number] [place] [address] May, [facility] [place] [facility] [address] [id number] [place] [address] Apr, [facility] [place] [facility] [address] [id number] [place] [address] Apr, [facility] [place] [facility] [address] [id number] [place] [address] Apr, [facility] [place] [facility] [address] [id number] [place] [address] Mar, [facility] [place] [facility] [address] [id number], [place] [address] Mar, [facility] [place] [facility] [address] [id number], [place] [address] Mar, [facility] [place] [facility] [address] [id number] [place] [address] Mar, [facility] [place] [facility] [address] [id number] [place] [address] Mar, [facility] [place] [facility] [address] [id number] [place] [address] Mar, [facility] [place] [facility] [address] [id number], [place] [address] Mar, [facility] [address] [facility] [id number], [place] [address] February, [facility] [address] [facility] [id number], [place] [address] February, [facility] [address]00565[address], [place] [address] February, [facility] [address] [facility] [id number], [place] [address] February, [facility] [address]00565[place], [place] [address] February, [facility] [address]00565[place], [place] [address] February, [facility] [address]65[address], [place] [address] February, [facility] [address]65100[place], [place] [address] February, [facility] [address]65[address], [place] [address] Jul, [facility] [address] [id number], [place] [address] Jul, IMMUNIZATIONS No Known Immunizations SOCIAL HISTORY Never Assessed REASON FOR VISIT [facility] [place] VITAL SIGNS MEDICATIONS No Known Medications RESULTS No Results PROCEDURES No Known procedures INSTRUCTIONS MEDICATIONS ADMINISTERED No Known Medications MEDICAL (GENERAL) HISTORY Type Description Date Medical History ADD Surgical History Gallbladder removed
--- OUTSIDE RECORDS SUMMARY | 2019-05-24 09:00 | XMS REPORT ---
Author Author Migration, Doctor Organization [facility] Address Unknown Phone Unavailable Care Team Providers Care Head Baggage Porter Name Role Phone Migration, Doctor Unavailable Unavailable PROBLEMS Type Condition ICD9-CM Code [id number] Code Onset Dates Condition Status SNOMED Code Problem Other general counseling and advice for contraceptive management V25.09 Active 484569459 Problem examination or test, positive result V72.42 Active 757815334 Problem Need for prophylactic vaccination and inoculation against rubella alone V04.3 Active 487372795 Problem Encounter for insertion of intrauterine contraceptive device V25.11 Active 62593791 Problem Maternal mental disorders, complicating , childbirth, or the puerperium, unspecified as to episode of care 648.40 Active 717834797 Problem Surveillance of previously prescribed intrauterine contraceptive device V25.42 Active 212801171610839 Problem Major depressive disorder, recurrent episode, moderate 296.32 Active 50009393 Problem Screening examination for venereal disease V74.5 Active 734424938 Problem Supervision of normal first V22.0 Active 426470982 Problem Nausea alone 787.02 Active 546938282 Problem Unspecified disorder of menstruation and other abnormal bleeding from female genital tract 626.9 Active 809979228 Problem Other specified symptom associated with female genital organs 625.8 Active 045336601 ALLERGIES No Information ENCOUNTERS Encounter Location Date Diagnosis [facility] [id number] [place] [address] Oct, Abdominal pain R10.9 [facility] [id number] [place] [id number] Apr, Dental examination Z01.20 and Dental caries K02.9 [facility] [id number] [place] [address] Jan, Acute vomiting R11.10 and Acute diarrhea R19.7 [facility] [address] [id number] Jun, Dental examination V72.2 [facility] [place] [facility] [address] [id number] [place] [address] 14 Jan, 2015 [facility] [place] [facility] [address] [id number] [place] [address] Jan, [facility] [place] [facility] [address] [id number] [place] [address] Mar, [facility] [place] [facility] [address] [id number] [place] [address] Mar, [facility] [place] [facility] [address] [id number] [place] [address] Jan, [facility] [place] [facility] [address] [id number] [place] [address] Jan, [facility] [place] [facility] [address] [id number] [place] [address] Jan, [facility] [place] [facility] [address] [id number] [place] [address] Jan, [facility] [place] [facility] [address] [id number] [place] [address] Jan, [facility] [place] [facility] [address] [id number] [place] [address] 16 Jan, 2014 [facility] [place] [facility] [address] [id number] [address] 14 Jan, 2014 [facility] [place] [facility] [address] [id number] [address] 10 Jan, 2014 [facility] [place] [facility] [address] [id number] [place] [address] 10 Jan, 2014 [facility] [place] [facility] [address] [id number] [address] 08 Jan, 2014 [facility] [place] [facility] [address] [id number] [place] [address] 08 Jan, 2014 [facility] [place] [facility] [address] [id number] [place] [address] Jan, [facility] [place] [facility] [address] [id number] [place] [address] Jan, [facility] [place] [facility] [address] [id number] [place] [address] Dec, [facility] [place] [facility] [address] [id number] [place] [address] Dec, [facility] [place] [facility] [address] [id number] [place] [address] Dec, [facility] [place] [facility] [address] [id number] [place] [address] Dec, [facility] [place] [facility] [address] [facility] [id number] [place] [address] Dec, [facility] [place] [facility] [address] [id number] [place] [address] Dec, [facility] [place] [facility] [address] [id number] [place] [address] Nov, [facility] [place] [facility] [address] [facility] [id number] [place] [address] Nov, [facility] [place] [facility] [address] [facility] [id number] [place] [address] Nov, [facility] [place] [facility] [address] [facility] [id number] [place] [address] Nov, [facility] [place] [facility] [address] [id number] [place] [address] Nov, [facility] [place] [facility] [address] [id number] [place] [address] Nov, [facility] [place] [facility] [address] [facility] [id number] [place] [address] Oct, [facility] [place] [facility] [address] [id number] [place] [address] Oct, [facility] [place] [facility] [address] [id number] [place] [address] Jul, [facility] [place] [facility] [address] [id number] [place] [address] Jul, [facility] [place] [facility] [address] [id number] [place] [address] Jul, [facility] [place] [facility] [address] [id number] [place] [address] Jul, [facility] [place] [facility] [address] [id number] [place] [address] Jun, [facility] [place] [facility] [address] [id number] [place] [address] May, [facility] [place] [facility] [address] [id number] [place] [address] Apr, [facility] [place] [facility] [address] [id number] [place] [address] Apr, [facility] [place] [facility] [address] [id number] [place] [address] Apr, [facility] [place] [facility] [address] [id number] [place] [address] Mar, [facility] [place] [facility] [address] [id number] [address] Mar, [facility] [place] [facility] [address] [id number] [address] Mar, [facility] [place] [facility] [address] [id number] [place] [address] Mar, [facility] [place] [facility] [address] [id number] [place] [address] Mar, [facility] [place] [facility] [address] [id number] [place] [address] Mar, [facility] [place] [facility] [address] [id number] [address] Mar, [facility] [address] [facility] [id number] [place] [address] February, [facility] [address] [facility] [id number] [place] [address] February, [facility] [address]00565100[place] [address] February, [facility] [address] [facility] [id number] [place] [address] February, [facility] [address]00565100[place] [address] February, [facility] [address]00565100[place] [address] February, [facility] [address]00565100[place] [address] February, [facility] [address]00565100[place] [address] February, [facility] [address]00565100[place] [address] Jul, [facility] [address] [id number] [address] Jul, IMMUNIZATIONS No Known Immunizations SOCIAL HISTORY Never Assessed REASON FOR VISIT [facility] [place] PLAN OF CARE VITAL SIGNS MEDICATIONS No Known Medications RESULTS No Results PROCEDURES No Known procedures INSTRUCTIONS MEDICATIONS ADMINISTERED No Known Medications MEDICAL (GENERAL) HISTORY Type Description Date Medical History ADD Surgical History Gallbladder removed
--- OUTSIDE RECORDS SUMMARY | 2019-05-24 09:00 | XMS REPORT ---
Author Author Migration, Doctor Organization [facility] Address Unknown Phone Unavailable Care Team Providers Care Circulation Crew Leader Name Role Phone Migration, Doctor Unavailable Unavailable PROBLEMS Type Condition ICD9-CM Code [id number] Code Onset Dates Condition Status SNOMED Code Problem Other general counseling and advice for contraceptive management V25.09 Active 463980773 Problem examination or test, positive result V72.42 Active 261968981 Problem Need for prophylactic vaccination and inoculation against rubella alone V04.3 Active 134376400 Problem Encounter for insertion of intrauterine contraceptive device V25.11 Active 12752551 Problem Maternal mental disorders, complicating , childbirth, or the puerperium, unspecified as to episode of care 648.40 Active 904586473 Problem Surveillance of previously prescribed intrauterine contraceptive device V25.42 Active 504906708667379 Problem Major depressive disorder, recurrent episode, moderate 296.32 Active 69589267 Problem Screening examination for venereal disease V74.5 Active 279886504 Problem Supervision of normal first V22.0 Active 242230299 Problem Nausea alone 787.02 Active 207569767 Problem Unspecified disorder of menstruation and other abnormal bleeding from female genital tract 626.9 Active 961624312 Problem Other specified symptom associated with female genital organs 625.8 Active 262476737 ALLERGIES No Information ENCOUNTERS Encounter Location Date Diagnosis [facility] [id number] [place] [address] Oct, Abdominal pain R10.9 [facility] [id number] [place] [id number] Apr, Dental examination Z01.20 and Dental caries K02.9 [facility] [id number] [place] [address] Jan, Acute vomiting R11.10 and Acute diarrhea R19.7 [facility] [address] [id number] Jun, Dental examination V72.2 [facility] [place] [facility] [address] [id number] [place] [address] 14 Jan, 2015 [facility] [place] [facility] [address] [id number] [place] [address] Jan, [facility] [place] [facility] [address] [id number] [place] [address] Mar, [facility] [place] [facility] [address] [id number] [place] [address] Mar, [facility] [place] [facility] [address] [id number] [place] [address] Jan, [facility] [place] [facility] [address] [id number] [place] [address] Jan, [facility] [place] [facility] [address] [id number] [place] [address] Jan, [facility] [place] [facility] [address] [id number] [place] [address] Jan, [facility] [place] [facility] [address] [id number] [place] [address] Jan, [facility] [place] [facility] [address] [id number] [place] [address] 16 Jan, 2014 [facility] [place] [facility] [address] [id number], [place] [address] 14 Jan, 2014 [facility] [place] [facility] [address] [id number], [place] [address] 10 Jan, 2014 [facility] [place] [facility] [address] [id number] [place] [address] 10 Jan, 2014 [facility] [place] [facility] [address] [id number], [place] [address] 08 Jan, 2014 [facility] [place] [facility] [address] [id number] [place] [address] 08 Jan, 2014 [facility] [place] [facility] [address] [id number] [place] [address] Jan, [facility] [place] [facility] [address] [id number] [place] [address] Jan, [facility] [place] [facility] [address] [id number] [place] [address] Dec, [facility] [place] [facility] [address] [id number] [place] [address] Dec, [facility] [place] [facility] [address] [id number] [place] [address] Dec, [facility] [place] [facility] [address] [id number] [place] [address] Dec, [facility] [place] [facility] [address] [facility] [id number] [place] [address] Dec, [facility] [place] [facility] [address] [id number] [place] [address] Dec, [facility] [place] [facility] [address] [id number] [place] [address] Nov, [facility] [place] [facility] [address] [facility] [id number] [place] [address] Nov, [facility] [place] [facility] [address] [facility] [id number] [place] [address] Nov, [facility] [place] [facility] [address] [facility] [id number] [place] [address] Nov, [facility] [place] [facility] [address] [id number] [place] [address] Nov, [facility] [place] [facility] [address] [id number] [place] [address] Nov, [facility] [place] [facility] [address] [facility] [id number] [place] [address] Oct, [facility] [place] [facility] [address] [id number] [place] [address] Oct, [facility] [place] [facility] [address] [id number] [place] [address] Jul, [facility] [place] [facility] [address] [id number] [place] [address] Jul, [facility] [place] [facility] [address] [id number] [place] [address] Jul, [facility] [place] [facility] [address] [id number] [place] [address] Jul, [facility] [place] [facility] [address] [id number] [place] [address] Jun, [facility] [place] [facility] [address] [id number] [place] [address] May, [facility] [place] [facility] [address] [id number] [place] [address] Apr, [facility] [place] [facility] [address] [id number] [place] [address] Apr, [facility] [place] [facility] [address] [id number] [place] [address] Apr, [facility] [place] [facility] [address] [id number] [place] [address] Mar, [facility] [place] [facility] [address] [id number] [address] Mar, [facility] [place] [facility] [address] [id number], [place] [address] Mar, [facility] [place] [facility] [address] [id number] [place] [address] Mar, [facility] [place] [facility] [address] [id number] [place] [address] Mar, [facility] [place] [facility] [address] [id number] [place] [address] Mar, [facility] [place] [facility] [address] [id number] [address] Mar, [facility] [address] [facility] [id number], [place] [address] February, [facility] [address] [facility] [id number], [place] [address] February, [facility] [id number] [address] February, [facility] [address] [facility] [id number], [place] [address] February, [facility] [id number], [place] [address] February, [facility] [id number] [address] February, [facility] [id number], [place] [address] February, [facility] [id number], [place] [address] February, [facility] [id number], [place] [address] Jul, [facility] [address] [id number], [place] [address] Jul, IMMUNIZATIONS No Known Immunizations SOCIAL HISTORY Never Assessed REASON FOR VISIT [facility] [place] PLAN OF CARE VITAL SIGNS MEDICATIONS No Known Medications RESULTS No Results PROCEDURES No Known procedures INSTRUCTIONS MEDICATIONS ADMINISTERED No Known Medications MEDICAL (GENERAL) HISTORY Type Description Date Medical History ADD Surgical History Gallbladder removed
--- OUTSIDE RECORDS SUMMARY | 2019-05-24 09:00 | XMS REPORT ---
Author Author Migration, Doctor Organization [facility] Address Unknown Phone Unavailable Care Team Providers Care Logistics Project Manager Name Role Phone Migration, Doctor Unavailable Unavailable PROBLEMS Type Condition ICD9-CM Code RLK49-CL Code Onset Dates Condition Status SNOMED Code Problem Other general counseling and advice for contraceptive management V25.09 Active 812184516 Problem examination or test, positive result V72.42 Active 296838665 Problem Need for prophylactic vaccination and inoculation against rubella alone V04.3 Active 560675633 Problem Encounter for insertion of intrauterine contraceptive device V25.11 Active 54636215 Problem Maternal mental disorders, complicating , childbirth, or the puerperium, unspecified as to episode of care 648.40 Active 440189587 Problem Surveillance of previously prescribed intrauterine contraceptive device V25.42 Active 467461440296984 Problem Major depressive disorder, recurrent episode, moderate 296.32 Active 79059787 Problem Screening examination for venereal disease V74.5 Active 245875856 Problem Supervision of normal first V22.0 Active 767286574 Problem Nausea alone 787.02 Active 167240863 Problem Unspecified disorder of menstruation and other abnormal bleeding from female genital tract 626.9 Active 631186142 Problem Other specified symptom associated with female genital organs 625.8 Active 462811608 ALLERGIES No Information ENCOUNTERS Encounter Location Date Diagnosis [facility] [id number] [place] [address] Oct, Abdominal pain R10.9 [facility] [id number] [place] [id number] Apr, Dental examination Z01.20 and Dental caries K02.9 [facility] [id number] [place] [address] Jan, Acute vomiting R11.10 and Acute diarrhea R19.7 [facility] [address] [id number] Jun, Dental examination V72.2 [facility] [place] [facility] [address] [id number] [place] [address] 14 Jan, 2015 [facility] [place] [facility] [address] [id number] [place] [address] Jan, [facility] [place] [facility] [address] [id number] [place] [address] Mar, [facility] [place] [facility] [address] [id number] [place] [address] Mar, [facility] [place] [facility] [address] [id number] [place] [address] Jan, [facility] [place] [facility] [address] [id number] [place] [address] Jan, [facility] [place] [facility] [address] [id number] [place] [address] Jan, [facility] [place] [facility] [address] [id number] [place] [address] Jan, [facility] [place] [facility] [address] [id number] [place] [address] Jan, [facility] [place] [facility] [address] [id number] [place] [address] 16 Jan, 2014 [facility] [place] [facility] [address] [id number], [place] [address] 14 Jan, 2014 [facility] [place] [facility] [address] [id number], [place] [address] 10 Jan, 2014 [facility] [place] [facility] [address] [id number] [place] [address] 10 Jan, 2014 [facility] [place] [facility] [address] [id number], [place] [address] 08 Jan, 2014 [facility] [place] [facility] [address] [id number] [place] [address] 08 Jan, 2014 [facility] [place] [facility] [address] [id number] [place] [address] Jan, [facility] [place] [facility] [address] [id number] [place] [address] Jan, [facility] [place] [facility] [address] [id number] [place] [address] Dec, [facility] [place] [facility] [address] [id number] [place] [address] Dec, [facility] [place] [facility] [address] [id number] [place] [address] Dec, [facility] [place] [facility] [address] [id number] [place] [address] Dec, [facility] [place] [facility] [address] [facility] [id number] [place] [address] Dec, [facility] [place] [facility] [address] [id number] [place] [address] Dec, [facility] [place] [facility] [address] [id number] [place] [address] Nov, [facility] [place] [facility] [address] [facility] [id number] [place] [address] Nov, [facility] [place] [facility] [address] [facility] [id number] [place] [address] Nov, [facility] [place] [facility] [address] [facility] [id number] [place] [address] Nov, [facility] [place] [facility] [address] [id number] [place] [address] Nov, [facility] [place] [facility] [address] [id number] [place] [address] Nov, [facility] [place] [facility] [address] [facility] [id number] [place] [address] Oct, [facility] [place] [facility] [address] [id number] [place] [address] Oct, [facility] [place] [facility] [address] [id number] [place] [address] Jul, [facility] [place] [facility] [address] [id number] [place] [address] Jul, [facility] [place] [facility] [address] [id number] [place] [address] Jul, [facility] [place] [facility] [address] [id number] [place] [address] Jul, [facility] [place] [facility] [address] [id number] [place] [address] Jun, [facility] [place] [facility] [address] [id number] [place] [address] May, [facility] [place] [facility] [address] [id number] [place] [address] Apr, [facility] [place] [facility] [address] [id number] [place] [address] Apr, [facility] [place] [facility] [address] [id number] [place] [address] Apr, [facility] [place] [facility] [address] [id number] [place] [address] Mar, [facility] [place] [facility] [address] [id number], [place] [address] Mar, [facility] [place] [facility] [address] [id number], [place] [address] Mar, [facility] [place] [facility] [address] [id number] [place] [address] Mar, [facility] [place] [facility] [address] [id number] [place] [address] Mar, [facility] [place] [facility] [address] [id number] [place] [address] Mar, [facility] [place] [facility] [address] [id number], [place] [address] Mar, [facility] [address] [facility] [id number], [place] [address] February, [facility] [address] [facility] [id number], [place] [address] February, [facility] [address], [place] [address] February, [facility] [address] [facility] [id number], [place] [address] February, [facility] [address]65[address], [place] [address] February, [facility] [address]65[address], [place] [address] February, [facility] [address], [place] [address] February, [facility] [address]65[address], [place] [address] February, [facility] [address]65[address], [place] [address] Jul, [facility] [address] [id number], [place] [address] Jul, IMMUNIZATIONS No Known Immunizations SOCIAL HISTORY Never Assessed REASON FOR VISIT [facility] [place] PLAN OF CARE VITAL SIGNS MEDICATIONS No Known Medications RESULTS No Results PROCEDURES No Known procedures INSTRUCTIONS MEDICATIONS ADMINISTERED No Known Medications MEDICAL (GENERAL) HISTORY Type Description Date Medical History ADD Surgical History Gallbladder removed
--- OUTSIDE RECORDS SUMMARY | 2019-05-24 09:00 | XMS REPORT ---
Author Author Migration, Doctor Organization [facility] Address Unknown Phone Unavailable Care Team Providers Care Combat Information Center Officer Name Role Phone Migration, Doctor Unavailable Unavailable PROBLEMS Type Condition ICD9-CM Code DVD58-CR Code Onset Dates Condition Status SNOMED Code Problem Other general counseling and advice for contraceptive management V25.09 Active 990149605 Problem examination or test, positive result V72.42 Active 971925659 Problem Need for prophylactic vaccination and inoculation against rubella alone V04.3 Active 939651458 Problem Encounter for insertion of intrauterine contraceptive device V25.11 Active 60410180 Problem Maternal mental disorders, complicating , childbirth, or the puerperium, unspecified as to episode of care 648.40 Active 498022664 Problem Surveillance of previously prescribed intrauterine contraceptive device V25.42 Active 089124528085038 Problem Major depressive disorder, recurrent episode, moderate 296.32 Active 44609475 Problem Screening examination for venereal disease V74.5 Active 349819882 Problem Supervision of normal first V22.0 Active 122138045 Problem Nausea alone 787.02 Active 739711388 Problem Unspecified disorder of menstruation and other abnormal bleeding from female genital tract 626.9 Active 930157467 Problem Other specified symptom associated with female genital organs 625.8 Active 271093438 ALLERGIES No Information ENCOUNTERS Encounter Location Date Diagnosis [facility] [id number] [place] [address] Oct, Abdominal pain R10.9 [facility] [id number] [place] [id number] Apr, Dental examination Z01.20 and Dental caries K02.9 [facility] [id number] [place] [address] Jan, Acute vomiting R11.10 and Acute diarrhea R19.7 [facility] [address] [id number] Jun, Dental examination V72.2 [facility] [place] [facility] [address] [id number] [place] [address] 14 Jan, 2015 [facility] [place] [facility] [address] [id number] [place] [address] Jan, [facility] [place] [facility] [address] [id number] [place] [address] Mar, [facility] [place] [facility] [address] [id number] [place] [address] Mar, [facility] [place] [facility] [address] [id number] [place] [address] Jan, [facility] [place] [facility] [address] [id number] [place] [address] Jan, [facility] [place] [facility] [address] [id number] [place] [address] Jan, [facility] [place] [facility] [address] [id number] [place] [address] Jan, [facility] [place] [facility] [address] [id number] [place] [address] Jan, [facility] [place] [facility] [address] [id number] [place] [address] 16 Jan, 2014 [facility] [place] [facility] [address] [id number], [place] [address] 14 Jan, 2014 [facility] [place] [facility] [address] [id number], [place] [address] 10 Jan, 2014 [facility] [place] [facility] [address] [id number] [place] [address] 10 Jan, 2014 [facility] [place] [facility] [address] [id number], [place] [address] 08 Jan, 2014 [facility] [place] [facility] [address] [id number] [place] [address] 08 Jan, 2014 [facility] [place] [facility] [address] [id number] [place] [address] Jan, [facility] [place] [facility] [address] [id number] [place] [address] Jan, [facility] [place] [facility] [address] [id number] [place] [address] Dec, [facility] [place] [facility] [address] [id number] [place] [address] Dec, [facility] [place] [facility] [address] [id number] [place] [address] Dec, [facility] [place] [facility] [address] [id number] [place] [address] Dec, [facility] [place] [facility] [address] [facility] [id number] [place] [address] Dec, [facility] [place] [facility] [address] [id number] [place] [address] Dec, [facility] [place] [facility] [address] [id number] [place] [address] Nov, [facility] [place] [facility] [address] [facility] [id number] [place] [address] Nov, [facility] [place] [facility] [address] [facility] [id number] [place] [address] Nov, [facility] [place] [facility] [address] [facility] [id number] [place] [address] Nov, [facility] [place] [facility] [address] [id number] [place] [address] Nov, [facility] [place] [facility] [address] [id number] [place] [address] Nov, [facility] [place] [facility] [address] [facility] [id number] [place] [address] Oct, [facility] [place] [facility] [address] [id number] [place] [address] Oct, [facility] [place] [facility] [address] [id number] [place] [address] Jul, [facility] [place] [facility] [address] [id number] [place] [address] Jul, [facility] [place] [facility] [address] [id number] [place] [address] Jul, [facility] [place] [facility] [address] [id number] [place] [address] Jul, [facility] [place] [facility] [address] [id number] [place] [address] Jun, [facility] [place] [facility] [address] [id number] [place] [address] May, [facility] [place] [facility] [address] [id number] [place] [address] Apr, [facility] [place] [facility] [address] [id number] [place] [address] Apr, [facility] [place] [facility] [address] [id number] [place] [address] Apr, [facility] [place] [facility] [address] [id number] [place] [address] Mar, [facility] [place] [facility] [address] [id number], [place] [address] Mar, [facility] [place] [facility] [address] [id number], [place] [address] Mar, [facility] [place] [facility] [address] [id number] [place] [address] Mar, [facility] [place] [facility] [address] [id number] [place] [address] Mar, [facility] [place] [facility] [address] [id number] [place] [address] Mar, [facility] [place] [facility] [address] [id number], [place] [address] Mar, [facility] [address] [facility] [id number], [place] [address] February, [facility] [address] [facility] [id number], [place] [address] February, [facility] [address], [place] [address] February, [facility] [address] [facility] [id number], [place] [address] February, [facility] [address], [place] [address] February, [facility] [address], [place] [address] February, [facility] [address], [place] [address] February, [facility] [address]65[place], [place] [address] February, [facility] [address]65[address], [place] [address] Jul, [facility] [address] [id number], [place] [address] Jul, IMMUNIZATIONS No Known Immunizations SOCIAL HISTORY Never Assessed REASON FOR VISIT [facility] [place] PLAN OF CARE VITAL SIGNS MEDICATIONS No Known Medications RESULTS No Results PROCEDURES No Known procedures INSTRUCTIONS MEDICATIONS ADMINISTERED No Known Medications MEDICAL (GENERAL) HISTORY Type Description Date Medical History ADD Surgical History Gallbladder removed
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
[2019-05-24 09:26] LABS: BASOPHILS # (AUTO) 0.1 10^3/uL (0.0-0.1); BASOPHILS % (AUTO) 1 % (0-10); EOSINOPHILS # (AUTO) 0.3 10^3/uL (0.0-0.3); EOSINOPHILS % (AUTO) 3 % (0-10); HEMATOCRIT 39 % (35-52); HEMOGLOBIN 13.4 G/DL (11.5-16.0); LYMPHOCYTES # (AUTO) 1.8 X 10^3 (1.0-4.0); LYMPHOCYTES % (AUTO) 22 % (12-44); MEAN CORPUSCULAR HEMOGLOBIN 33 PG (25-34); MEAN CORPUSCULAR HGB CONC 34 G/DL (32-36); MEAN CORPUSCULAR VOLUME 97 FL (80-99); MEAN PLATELET VOLUME 9.3 FL (7.4-10.4); MONOCYTES # (AUTO) 0.8 X 10^3 (0.0-1.0); MONOCYTES % (AUTO) 9 % (0-12); NEUTROPHILS # (AUTO) 5.3 X 10^3 (1.8-7.8); NEUTROPHILS % (AUTO) 65 % (42-75); PLATELET COUNT 314 10^3/uL (130-400); RED CELL DISTRIBUTION WIDTH 14.1 % (10.0-14.5); WHITE BLOOD COUNT 8.1 10^3/uL (4.3-11.0)
--- NOTE | 2019-05-24 09:58 | ED GU-Female ---
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 STATES STARTED LAST NIGHT. PT STATES SHE IS APPROX 6 WEEKS . LMP 04/08/19-04/13/19. Nursing Sepsis Screen: No Definite Risk Source: patient Exam Limitations: no limitations History of Present Illness Date Seen by Provider: May 24, 2019 Time Seen by Provider: 09:15 Initial Comments Here with report of low abdominal cramping and vaginal bleeding starting this morning. She reports that she is approximately 6 weeks with last menstrual period April 08. Last sexual activity last night. No pain with sexual activity. Noted blood when she wiped this morning and has had continued bleeding. Not passing tissue or clots. Denies nausea or vomiting. Pain is cramping and tightening in the lower abdomen. Timing/Duration: this morning Severity/Quality: mild, moderate, cramping Location: suprapubic Radiation: none Activities at Onset: none Sexual [place] History: less than 2 months ago, single partner Modifying Factors: Improves With Resting Associated Symptoms: abdominal pain; No dysuria, No fever/chills, No lower back pain, No nausea/vomiting, No urinary frequency Allergies and Home Medications Allergies Coded Allergies: No Known Drug Allergies (Unverified , 12/07/09) Home Medications Dextroamphetamine/Amphetamine 30 Mg Tablet, 30 MG PO BID, (Reported) Hydrocodone/Acetaminophen 1 Each Tablet, 1 EACH PO Q4H PRN for PAIN-MILD TO MODERATE Prescribed by: LUIS NAGY on 04/26/17 1216 Patient Home Medication List Home Medication List Reviewed: Yes Review of Systems Review of Systems Constitutional: see HPI; No chills, No fever EENTM: no symptoms reported Respiratory: no symptoms reported Cardiovascular: no symptoms reported Gastrointestinal: see HPI Genitourinary: see HPI; denies dysuria, denies frequency; pain : Yes LMP: Apr 08, 2019 Musculoskeletal: no symptoms reported All Other Systemes Reviewed Negative Unless Noted: Yes Past Islnskh-Aascsj-Eywyfq Hx Past Med/Social Hx: Reviewed Nursing Past Med/Soc Hx Patient Social History Alcohol Use: Denies Use Recreational Drug Use: No Smoking Status: Current Everyday Smoker Type Used: Cigarettes Recent Foreign Travel: No Contact w/Someone Who Travel: No Recent Infectious Disease Expo: No Recent Hopitalizations: No Physical Abuse: No Sexual Abuse: No Mistreated: No Fear: No Immunizations Up To Date Tetanus Booster (TDap): Unknown PED Vaccines UTD: Yes Seasonal Allergies Seasonal Allergies: No Past Medical History Surgeries: Yes Gallbladder Respiratory: No Cardiac: No Neurological: No Reproductive Disorders: No Sexually Transmitted Disease: No HIV/AIDS: No Genitourinary: No Gastrointestinal: Yes Gastroesophageal Reflux Musculoskeletal: No Endocrine: No Cancer: No Psychosocial: No Integumentary: No Blood Disorders: No Family Medical History Reviewed Nursing Family Hx No Pertinent Family Hx Physical Exam Vital Signs Vital Signs - First Documented 05/24/19 08:58 Temp 98.6 Pulse 85 Resp 16 B/P (MAP) 115/85 (95) Pulse Ox 97 O2 Delivery Room Air Capillary Refill : Less Than 3 Seconds Height, Weight, BMI Height: 5'11.00" Weight: 160lbs. 2.0oz. 72.134603by; 20.60 BMI Method:Stated General Appearance: WD/WN, no apparent distress HEENT: PERRL/EOMI, pharynx normal Neck: full range of motion, supple Cardiovascular: regular rate, rhythm, no murmur Respiratory: lungs clear, normal breath sounds Gastrointestinal: normal bowel sounds, non tender, soft Back: normal inspection, no CVA tenderness, no vertebral tenderness Extremities: non-tender, normal inspection Neurologic/Psychiatric: alert, oriented x 3 Skin: normal color, warm/dry Progress/Results/Core Measures Suspected Sepsis Recent Fever Within 48 Hours: No Infection Criteria Present: None New/Unexplained Altered Menta: No Sepsis Screen: No Definite Risk SIRS Temperature:98.6 Pulse: 85 Respiratory Rate: 16 Laboratory Tests 05/24/19 09:17: White Blood Count 8.1 Blood Pressure 115 /85 Mean: 95 Laboratory Tests 05/24/19 09:17: Platelet Count 314 Results/Orders Lab Results Laboratory Tests Test 05/24/19 09:04 05/24/19 09:17 Range/Units Urine Color YELLOW Urine Clarity CLEAR Urine pH 8 5-9 Urine Specific Wheeler 1.010 L 1.016-1.022 Urine Protein NEGATIVE NEGATIVE Urine Glucose (UA) NEGATIVE NEGATIVE Urine Ketones NEGATIVE NEGATIVE Urine Nitrite NEGATIVE NEGATIVE Urine Bilirubin NEGATIVE NEGATIVE Urine Urobilinogen NORMAL NORMAL MG/DL Urine Leukocyte Esterase NEGATIVE NEGATIVE Urine RBC (Auto) 3+ H NEGATIVE Urine RBC RARE /HPF Urine WBC RARE /HPF Urine Squamous Epithelial Cells 5-10 /HPF Urine Crystals NONE /LPF Urine Bacteria NEGATIVE /HPF Urine Casts NONE /LPF Urine Mucus NEGATIVE /LPF Urine Culture Indicated NO White Blood Count 8.1 4.3-11.0 10^3/uL Red Blood Count 4.05 L 4.35-5.85 10^6/uL Hemoglobin 13.4 11.5-16.0 G/DL Hematocrit 39 35-52 % Mean Corpuscular Volume 97 80-99 FL Mean Corpuscular Hemoglobin 33 25-34 PG Mean Corpuscular Hemoglobin Concent 34 32-36 G/DL Red Cell Distribution Width 14.1 10.0-14.5 % Platelet Count 314 130-400 10^3/uL Mean Platelet Volume 9.3 7.4-10.4 FL Neutrophils (%) (Auto) 65 42-75 % Lymphocytes (%) (Auto) 22 12-44 % Monocytes (%) (Auto) 9 0-12 % Eosinophils (%) (Auto) 3 0-10 % Basophils (%) (Auto) 1 0-10 % Neutrophils # (Auto) 5.3 1.8-7.8 X 10^3 Lymphocytes # (Auto) 1.8 1.0-4.0 X 10^3 Monocytes # (Auto) 0.8 0.0-1.0 X 10^3 Eosinophils # (Auto) 0.3 0.0-0.3 10^3/uL Basophils # (Auto) 0.1 0.0-0.1 10^3/uL Human Chorionic Gonadotropin, Quant [id number] H <5 MIU/ML My Orders Orders - JACKI SHELTON MD Cbc With Automated Diff (05/24/19 09:04) Hcg,Quantitative (05/24/19 09:04) Us Ob Single Fetus<14 [id number] (05/24/19 09:52) Ua Culture If Indicated (05/24/19 09:53) Vital Signs/I&O 05/24/19 08:58 Temp 98.6 Pulse 85 Resp 16 B/P (MAP) 115/85 (95) Pulse Ox 97 O2 Delivery Room Air Capillary Refill : Less Than 3 Seconds Blood Pressure Mean: 95 Progress Note : Progress Note Seen and evaluated. Labs and UA ordered. Quant is elevated so we will get a pelvic ultrasound. Patient has O+ blood type by records reviewed. 1055: I did discuss the case with Dr. Blake. Follow-up as needed. Pelvic rest. Discharged home with return precautions. Patient and family verbalize understanding instructions and agreement with plan. Diagnostic Imaging Diagonstic Imaging: Ultrasound Plain Films/CT/US/NM/MRI: pelvis Comments Preliminary read shows positive pole at approximately 6 and 0/7 days with heart tones of 105. Concern for subchorionic blood. Departure Impression Primary Impression: Threatened miscarriage in early Disposition: HOME, SELF-CARE Condition: Stable Departure-Patient Inst. Decision time for Depature: 10:58 Referrals: NOA BLAKE MD (PCP/Family) Primary Care Physician Patient Instructions: Threatened Miscarriage, Bleeding With (DC) Add. Discharge Instructions: All discharge instructions reviewed with patient and/or family. Voiced understanding. Follow-up with your DrEvangelina in a few days for recheck as needed. Return for worse pain, bleeding greater than 2 pads per hour for more than 2 hours, weakness or other concerns as needed. Drink plenty of fluids. Pelvic rest until cleared by your doctor. Copy Copies To 1: NOA BLKAE MD, TIMOTHY D MD May 24, 2019 09:58
[2019-05-24 10:04] LABS: BILIRUBIN,URINE NEGATIVE (NEGATIVE); CLARITY,URINE CLEAR; COLOR,URINE YELLOW; GLUCOSE, URINE (UA) NEGATIVE (NEGATIVE); KETONES,URINE NEGATIVE (NEGATIVE); LEUKOCYTE ESTERASE ,URINE NEGATIVE (NEGATIVE); NITRITE,URINE NEGATIVE (NEGATIVE); PH,URINE 8 (5-9); PROTEIN,URINE NEGATIVE (NEGATIVE); UROBILINOGEN,URINE NORMAL (NORMAL)
[2019-05-24 10:15] LABS: BACTERIA,URINE NEGATIVE /HPF; RBC,URINE RARE /HPF; WBC,URINE RARE /HPF
[2019-05-24 11:15] VITALS: BP 115/85
--- NOTE | 2019-05-24 11:44 | Diagnostic Imaging Report ---
US OB TRANSVAGINAL [id number] Technique: Transvaginal sonographic imaging of the pelvis was performed. Indication: Bleeding during . Comparison: None available. Findings: There is a gestational sac with a normal morphology appropriately positioned within the upper uterus. A yolk sac is present along with an embryo. heart rate at 105 beats per minute is detected. Subchorionic hemorrhage is present and encases less than 50% of the gestational sac. This measures 1.8 x 1.4 cm. Both ovaries are visualized and physiologic in appearance. There is a involuting corpus luteum in the left ovary. Blood flow seen in both ovaries without torsion. No suspicious adnexal mass or free fluid. Impression: 1. Single live early intrauterine with a gestational age of approximately 6 weeks and zero days based on crown-rump length. 2. Small subchorionic hemorrhage encases less than 50% of the gestational sac. Dictated by: Dictated on workstation # [id number]
== END 2019-05-24 11:15 | disposition home or self-care (01) ==
LOC: EDUNIT# 08:54 → ER 08:55
DX: O20.0 Threatened abortion (principal); O99.611 Diseases of the digestive system complicating pregnancy, first trimester; K21.9 Gastro-esophageal reflux disease without esophagitis; O99.331 Smoking (tobacco) complicating pregnancy, first trimester; F17.210 Nicotine dependence, cigarettes, uncomplicated; Z3A.01 Less than 8 weeks gestation of pregnancy
CPT/HCPCS: 36415; 76817; 81000; 84702; 85025

== ENCOUNTER → 2019-06-09 | Outpatient (CLI) | payer MEDICAID ==
--- NOTE | 2019-06-09 12:42 | Diagnostic Imaging Report ---
PROCEDURE: US OB SINGLE FETUS <14 WKS. TECHNIQUE: Multiple real-time grayscale images were obtained over the gravid uterus in various projections. INDICATION: Followup subchorionic hemorrhage. COMPARISON: Correlation is made with prior ultrasound from 05/24/2019. FINDINGS: Intrauterine gestational sac containing a pole is seen. Elrosa-rump length measurements are consistent with approximately 8 weeks 5 days showing normal interval growth. heart motion was recorded at 163 beats per minute. Subchorionic hemorrhage appears to be larger measuring 6.1 x 1.8 x 5.7 cm. Ovaries are not visualized today. No adnexal mass or free fluid is seen. IMPRESSION: Single live IUP 8 weeks 5 days gestational age. Subchronic bleed does appear to be larger on today's study. Continued followup is recommended. Dictated by: Dictated on workstation # [id number]
== END ==
LOC: RAD 10:41
PROVIDERS: ATTEND Family Medicine
DX: O20.8 Other hemorrhage in early pregnancy (principal); Z3A.08 8 weeks gestation of pregnancy
CPT/HCPCS: 76801

== ENCOUNTER → 2019-07-29 | Outpatient (CLI) | payer MEDICAID ==
--- NOTE | 2019-07-29 16:49 | Diagnostic Imaging Report ---
INDICATION: Follow-up subchorionic hemorrhage. COMPARISON: 06/09/2019. TECHNIQUE: Multi-projectional sonographic imaging of the gravid uterus was performed transabdominally. FINDINGS: There is a single live intrauterine in variable presentation throughout the exam. heart rate is 140 bpm. The amount of amniotic fluid appears visually appropriate. Placenta is posteriorly positioned and no placenta previa or marginal placenta. No conchita-gestational hemorrhage is appreciated. Assessment of the adnexa is limited due to advanced gestational age. IMPRESSION: 1. Single live intrauterine with heart rate of 140 bpm. 2. No conchita-gestational hemorrhage. The previously noted subchorionic hemorrhage has resolved. Dictated by: Dictated on workstation # [id number]
== END ==
LOC: RAD 12:16
PROVIDERS: ATTEND Family Medicine
DX: Z34.90 Encounter for supervision of normal pregnancy, unspecified, unspecified trimester (principal); Z3A.00 Weeks of gestation of pregnancy not specified
CPT/HCPCS: 76815

== ENCOUNTER → 2019-09-27 | Outpatient (CLI) | payer MEDICAID ==
--- NOTE | 2019-09-27 14:15 | Diagnostic Imaging Report ---
INDICATION: survey. TECHNIQUE: Multiple real-time grayscale images were obtained over the gravid uterus. COMPARISON: 07/29/2019. FINDINGS: There is a single live fetus in a cephalic presentation. heart rate was recorded at 155 BPM. Placenta is posterior. Amniotic fluid volume is normal. Cervical length is 4.1 cm. kidneys, bladder and stomach are unremarkable. The brain is unremarkable. There is a four-chamber heart. There is a three-vessel cord with normal insertion. spine is unremarkable. Maternal adnexa were not evaluated. Biometrical measurements are as follows: Biparietal 5.95 cm, age 24 weeks 3 days. Head circumference 22.82 cm, age 24 weeks 6 days. Abdominal circumference 19.96 cm, age 24 weeks 5 days. Femur length 4.49 cm, age 24 weeks 6 days. Sonographic estimate age: 24 weeks 5 days. Sonographic estimated date of delivery: 01/11/2019. Estimated Weight: 724 gm (+/- 106 gm). LMP percentile: 46%. heart rate: 155 beats per minute. number: 1 of 1. IMPRESSION: Single live IUP 24-25 weeks gestational age demonstrating normal interval growth when compared with prior exam. No complicating features are identified. Dictated by: Dictated on workstation # [id number]
== END ==
LOC: RAD 09:47
PROVIDERS: ATTEND Family Medicine
DX: Z36.89 Encounter for other specified antenatal screening (principal); Z3A.24 24 weeks gestation of pregnancy
CPT/HCPCS: 76805

== ENCOUNTER 2019-10-24 14:39 | Outpatient (CLI) | payer MEDICAID ==
[~2019-10-24] VITALS: Ht 162.6 cm; Wt 82.6 kg
--- NOTE | 2019-10-24 14:45 | NUR ---
ANNE OATES presented to unit via AMBULATORY from ED, accompanied by , with c/o ABD PAIN;VOMITING. ANNE OATES weighed, gowned, voided, and to bed. EFHM and TOCO applied, VS taken. ANNE OATES oriented to bed controls, call light, TV, heat, and A/C controls.
[2019-10-24 15:00] VITALS: BP 121/72
--- NOTE | 2019-10-24 15:30 | NUR ---
THIS RN COMPLETES PT ASSESSMENT. PT STATES SHE HAS HAD INTERMITTENT ABDOMINAL PAIN FOR THE LAST 3 DAYS, LOWER ABD CRAMPING. PT BEGAN VOMITING ABOUT 1-2 HOURS AGO PER PT REPORT. PT STATES SHE HAS BEEN AROUND A LOT OF SICK PEOPLE RECENTLY. FEELING BABY MOVE MUCH USUAL. DR BLAKE CALLED BY THIS RN WITH PT REPORT AT 1542. FHT STRIP REVIEWED, NO UC NOTED, REACTIVE NST. MAY DC FHT MONITORING AT THIS TIME. DR STATES SEE IF PT CAN TOLERATE PO FLUIDS THEN DC TO HOME. RN TO CALL IN PERSCRIPTION FOR ZOFRAN 4MG Q4-6HR (QNT: 20) TO [facility]. RN WILL CALL DR BLAKE BACK WITH UPDATED PT REPORT IF PT UNABLE TO TOLERATE PO FLUIDS.
[2019-10-24 16:16] VITALS: BP 121/72
--- NOTE | 2019-10-24 17:15 | NUR ---
PT ABLE TO TOLERATE PO FLUIDS. DC TO HOME PER DR BLAKE ORDERS. INSTRUCTIONS GIVEN AND EXPLAINED TO PT AT THIS TIME BY THIS RN. PRESCRIPTION HAS BEEN CALLED IN TO [facility]
--- NOTE | 2019-10-25 08:28 | Physician Query-Final Dx ---
YANIV TURPIN 10/25/19 0828: Clinic Account Progress/Dx Physician Query: Please give diagnosis Please give # weeks gestation Date of Service Oct 24, 2019 at 14:39 NOA BLAKE MD 10/25/19 1514: Clinic Account Progress/Dx DIAGNOSIS: Diagnosis 1. IUP at 28 weeks gestation 2. Gastroenteritis, viral YANIV TURPIN Oct 25, 2019 08:28 NOA BLAKE MD Oct 25, 2019 15:14
== END 2019-10-24 17:15 | disposition home or self-care (01) ==
LOC: WSo 14:39 → LDRP 14:40 → WSo 17:15
PROVIDERS: ATTEND Family Medicine
DX: O99.613 Diseases of the digestive system complicating pregnancy, third trimester (principal); A08.4 Viral intestinal infection, unspecified; Z3A.28 28 weeks gestation of pregnancy
CPT/HCPCS: 99214

== ENCOUNTER 2019-12-26 11:40 | Outpatient (CLI) | payer MEDICAID ==
[~2019-12-26] VITALS: Ht 162.6 cm; Wt 82.1 kg
--- NOTE | 2019-12-26 11:46 | NUR ---
ANNE OATES presented to unit via AMBULATORY from ED, with c/o BACK PAIN;LOWER ABD PAIN;VOMITING. ANNE OATES weighed, gowned, voided, and to bed. EFHM and TOCO applied, VS taken. ANNE OATES oriented to bed controls, call light, TV, heat, and A/C controls.
[2019-12-26 12:02] VITALS: BP 129/77
[2019-12-26] MEDS ORDERED: PREN-37 PO (12:08)
[2019-12-26] MEDS ORDERED: FERR-65 PO (12:09)
[2019-12-26 12:10] LABS: BILIRUBIN,URINE NEGATIVE (NEGATIVE); CLARITY,URINE CLEAR; COLOR,URINE YELLOW; GLUCOSE, URINE (UA) NEGATIVE (NEGATIVE); KETONES,URINE NEGATIVE (NEGATIVE); LEUKOCYTE ESTERASE ,URINE 1+ (NEGATIVE); NITRITE,URINE NEGATIVE (NEGATIVE); PH,URINE 8.5 (5-9); PROTEIN,URINE NEGATIVE (NEGATIVE)
[2019-12-26 12:11] VITALS: BP 129/77
[2019-12-26 12:18] LABS: BACTERIA,URINE FEW /HPF
--- NOTE | 2019-12-26 12:43 | NUR ---
DR. BLAKE NOTIFIED OF PT'S ARRIVAL, GESTATION, C/O, REVIEW OF STRIP AND UA RESULTS. ORDER RECEIVED TO DISCHARGE HOME.
--- NOTE | 2019-12-26 12:56 | NUR ---
DISCHARGE PAPERS PROVIDED AND REVIEWED WITH PT, PT VERBALIZES UNDERSTANDING, QUESTIONS ANSWERED. PAPER SIGNED.
--- NOTE | 2019-12-26 12:58 | NUR ---
PT DISCHARGED FROM [facility] TO [facility] VIA AMBULATORY IN STABLE CONDITION, BELONGINGS IN HAND.
--- NOTE | 2019-12-27 08:08 | Physician Query-Final Dx ---
Clinic Account Progress/Dx Physician Query: Please give diagnosis Please include # weeks gestation Date of Service Dec 26, 2019 at 11:40 YANIV TURPIN Dec 27, 2019 08:08
== END 2019-12-26 12:58 | disposition home or self-care (01) ==
LOC: WSo 11:40 → LDRP 11:42 → WSo 12:58
PROVIDERS: ATTEND Family Medicine
DX: Z34.90 Encounter for supervision of normal pregnancy, unspecified, unspecified trimester (principal); Z3A.00 Weeks of gestation of pregnancy not specified
CPT/HCPCS: 81000; 99212

== ENCOUNTER 2020-01-11 06:00 | Inpatient (IN) | payer MEDICAID ==
[2020-01-11] VITALS (32 sets, daily range): BP systolic 92–140; BP diastolic 59–81
[~2020-01-11] VITALS: Ht 162.6 cm; Wt 84.0 kg
[~2020-01-11 06:00] MED LIST changes: +FERR-65 PO; +PREN-37 PO
--- OUTSIDE RECORDS SUMMARY | 2020-01-11 06:09 | XMS REPORT ---
Author Author Nancy LOWRY Organization [facility] Address [address] [place] [address] Care Team Providers Care Magneto Repairer Name Role Phone ENRIQUE LOWRY Unavailable PROBLEMS Type Condition ICD9-CM Code NBM30-BM Code Onset Dates Condition S tatus SNOMED Code Problem Other general counseling and advice for contrace ptive management V25.09 Active 833312373 Problem examination or test, positive result V72.42 Active 512671675 Problem Need for prophylactic vaccination and in oculation against rubella alone V04.3 Active 047971197 Problem Encounter for insertion of intrauterine contraceptive mireya ce V25.11 Active 79595342 Problem Maternal mental disorders, c omplicating , childbirth, or the puerperium, unspecified as to episode of care 648.40 Active 227379073 Problem Surveillance of previously prescribed in trauterine contraceptive device V25.42 Active [id number] Problem Major depressive disorder, recurrent episode, moderate 296 .32 Active 63208117 Problem Screening examination for venereal disease V74.5 Active 690855530 Problem Supervision of normal first V22.0 Active 612363940 Problem Nausea alone 787.02 Active 5289851 07 Problem Unspecified disorder of mens truation and other abnormal bleeding from female genital tract 626.9 Active 1951194 04 Problem Other specified symptom associated with female genital org ans 625.8 Active 643769825 ALLERGIES No Information ENCOUNTERS Encounter Location Date Diagnosis [facility] [address] [facility] [id number] [address] [place] [id number] Oct, Abdominal pain R10.9 [facility] [address] [facility] [id number] [place], [place] [id number] Apr, Dental examination Z01.20 and Dental car ies K02.9 [facility] [address] [facility] [id number] [address] [place] [address] 01 Apr, 2016 Acute vomiting R11.10 and Ac caddo diarrhea R19.7 [facility] [address] [facility] [id number] [place] [id number] Jun, Dental examination V72.2 [facility] [address] [id number] [place] [address] 14 Jan, 2015 [facility] [id number] [place] [address] Jan, [facility] [id number] [place] [address] Mar, [facility] [id number] [place] [address] Mar, [facility] [id number] [place] [address] 22 Jan, 2014 [facility] [id number] [place] [address] Jan, [facility] [id number] [place] [address] 17 Jan, 2014 [facility] [id number] [place] [address] 17 Jan, 2014 [facility] [id number] [place] [address] 16 Jan, 2014 [facility] [id number] [place] [address] 16 Jan, 2014 [facility] [id number] [place] [address] 14 Jan, 2014 [facility] [id number] [place] [address] 10 Jan, 2014 [facility] [id number] [place] [address] 10 Jan, 2014 [facility] [id number] [place] [address] 08 Jan, 2014 [facility] [id number] [place] [address] 08 Jan, 2014 [facility] [address] [facility] [id number] [place] [address] Jan, [facility] [address] [facility] [id number] [place] [address] Jan, [facility] [address] [id number] [place] [address] Dec, [facility] [address] [id number] [place] [address] Dec, [facility] [address] [facility] [id number] [place] [address] Dec, [facility] [address] [id number] [place] [address] Dec, [facility] [address] [id number] [place] [address] Dec, [facility] [address] [id number] [place] [address] Dec, [facility] [address] [id number] [place] [address] Nov, [facility] [address] [id number] [place] [address] Nov, [facility] [address] [id number] [place] [address] Nov, [facility] [address] [id number] [place] [address] Nov, [facility] [address] [id number] [place] [address] Nov, [facility] [address] [id number] [place] [address] Nov, [facility] [address] [id number] [place] [address] Oct, [facility] [address] [id number] [place] [address] Oct, [facility] [address] [id number] [place] [address] 24 Jul, 2013 [facility] [address] [facility] [id number] [place] [address] 24 Jul, 2013 [facility] [address] [id number] [place] [address] Jul, [facility] [address] [id number] [place] [address] 10 Jul, 2013 [facility] [address] [id number] [place] [address] Jun, [facility] [address] [id number] [place] [address] May, [facility] [address] [id number] [place] [address] Apr, [facility] [address] [id number] [place] [address] Apr, [facility] [address] [id number] [place] [address] Apr, [facility] [address] [id number] [place] [address] Mar, [facility] [address] [id number] [place] [address] Mar, [facility] [address] [id number] [place] [address] Mar, [facility] [address] [id number] [place] [address] Mar, [facility] [address] [id number] [place] [address] Mar, [facility] [address] [id number] [place] [address] Mar, [facility] [address] [id number] [place] [address] Mar, [facility] [address] [id number] [place] [address] February, [facility] [address] [id number] [place] [address] February, [facility] [address] [id number] [place] [address] February, [facility] [address] [id number] [place] [address] February, [facility] [id number] [place] [address] February, [facility] [id number] [place] [address] February, [facility] [id number] [place] [address] February, [facility] [address] [id number] [place] [address] February, [facility] [address] [id number] [place] [address] Jul, [facility] [address] [id number] [place] [address] Jul, IMMUNIZATIONS No Known Immunizations SOCIAL HISTORY Never Assessed REASON FOR VISIT PLAN OF CARE VITAL SIGNS MEDICATIONS No Known Medications RESULTS No Results PROCEDURES No Known procedures INSTRUCTIONS MEDICATIONS ADMINISTERED No Known Medications MEDICAL (GENERAL) HISTORY Type Description Date Medical History ADD Surgical History Gallbladder removed
--- OUTSIDE RECORDS SUMMARY | 2020-01-11 06:09 | XMS REPORT ---
Author Author Nancy Campbell Organization [facility] Address [address] [place] [address] Care Team Providers Care Retirement Plan Specialist Name Role Phone KETURAH Campbell Unavailable PROBLEMS Type Condition ICD9-CM Code [id number] Code Onset Dates Condition S tatus SNOMED Code Problem Other general counseling and advice for contrace ptive management V25.09 Active 133936700 Problem examination or test, positive result V72.42 Active 804550193 Problem Need for prophylactic vaccination and in oculation against rubella alone V04.3 Active 473253605 Problem Encounter for insertion of intrauterine contraceptive mireya ce V25.11 Active 57574261 Problem Maternal mental disorders, c omplicating , childbirth, or the puerperium, unspecified as to episode of care 648.40 Active 568192663 Problem Surveillance of previously prescribed in trauterine contraceptive device V25.42 Active 971969800152136 Problem Major depressive disorder, recurrent episode, moderate 296 .32 Active 72928854 Problem Screening examination for venereal disease V74.5 Active 262873345 Problem Supervision of normal first V22.0 Active 582942333 Problem Nausea alone 787.02 Active 6053617 07 Problem Unspecified disorder of mens truation and other abnormal bleeding from female genital tract 626.9 Active 5387984 04 Problem Other specified symptom associated with female genital org ans 625.8 Active 129864731 ALLERGIES No Information ENCOUNTERS Encounter Location Date Diagnosis [facility] [address] [facility] [id number] [address] [place] [address] Oct, Abdominal pain R10.9 [facility] [address] [facility] [id number] [place] [id number] Apr, Dental examination Z01.20 and Dental car ies K02.9 [facility] [address] [facility] [id number] [address] [place] [address] Jan, 2016 Acute vomiting R11.10 and Ac amaury diarrhea R19.7 [facility] [address] [id number] [place] [id number] Jun, Dental examination V72.2 [facility] [address] [id number] [place] [address] 14 Jan, 2015 [facility] [id number] [place] [address] 13 Jan, [address] [facility] [id number] [place] [address] Mar, [facility] [id number] [place] [address] Mar, [facility] [id number] [place] [address] 22 Jan, 2014 [facility] [id number] [place] [address] 22 Jan, [address] [facility] [id number] [place] [address] 17 Jan, 2014 [facility] [id number] [place] [address] 17 Jan, [address] [facility] [id number] [place] [address] 16 Jan, 2014 [facility] [id number] [place] [address] 16 Jan, [address] [facility] [id number] [place] [address] 14 Jan, [address] [facility] [id number] [place] [address] 10 Jan, [address] [facility] [id number] [place] [address] 10 Jan, [address] [facility] [id number] [place] [address] 08 Jan, [address] [facility] [id number] [place] [address] 08 Jan, 2014 [facility] [address] [facility] [id number] [facility] [address] Jan, [facility] [address] [facility] [id number] [facility] [address] Jan, [facility] [address] [id number] [facility] [address] Dec, [facility] [address] [id number] [place] [address] Dec, [facility] [address] [facility] [id number] [facility] [address] Dec, [facility] [address] [id number] [place] [address] Dec, [facility] [address] [id number] [place] [address] Dec, [facility] [address] [id number] [place] [address] Dec, [facility] [address] [id number] [place] [address] Nov, [facility] [address] [id number] [place] [address] Nov, [facility] [address] [id number] [place] [address] Nov, [facility] [address] [id number] [place] [address] Nov, [facility] [address] [id number] [place] [address] Nov, [facility] [address] [id number] [place] [address] Nov, [facility] [address] [id number] [place] [address] Oct, [facility] [address] [id number] [place] [address] Oct, [facility] [address] [facility] [id number] [place] [address] Jul, [facility] [address] [facility] [id number] [place] [address] Jul, [facility] [address] [id number] [place] [address] Jul, [facility] [address] [id number] [place] [address] Jul, [facility] [address] [id number] [place] [address] Jun, [facility] [address] [id number] [place] [address] May, [facility] [address] [id number] [place] [address] Apr, [facility] [address] [id number] [place] [address] Apr, [facility] [address] [id number] [place] [address] Apr, [facility] [address] [id number] [place] [address] Mar, [facility] [address] [id number] [place] [address] Mar, [facility] [address] [id number] [place] [address] Mar, [facility] [address] [id number] [place] [address] Mar, [facility] [address] [id number] [place] [address] Mar, [facility] [address] [id number] [place] [address] Mar, [facility] [address] [id number] [place] [address] Mar, [facility] [address] [id number] [place] [address] February, [facility] [address] [id number] [place] [address] February, [facility] [address] [id number] [place] [address] February, [facility] [address] [id number] [place] [address] February, [facility] [address] [id number] [place] [address] February, [facility] [address] [id number] [place] [address] February, [facility] [id number] [place] [address] February, [facility] [address] [id number] [place] [address] February, [facility] [address] [id number] [place] [address] Jul, [facility] [address] [id number] [place] [address] Jul, IMMUNIZATIONS No Known Immunizations SOCIAL HISTORY Never Assessed REASON FOR VISIT PLAN OF CARE VITAL SIGNS Height 64 in 2013-12-22 Weight 179.7 lbs 2013-12-22 Temperature 97.6 degrees Fahrenheit 2013-12-22 Heart Rate 84 bpm 2013-12-22 Respiratory Rate 18 2013-12-22 Blood pressure systolic 110 mmHg 2013-12-22 Blood pressure diastolic 76 mmHg 2013-12-22 MEDICATIONS No Known Medications RESULTS No Results PROCEDURES Procedure Date Ordered Result Body Site LEVONORGESTREL INTRAUTERN CNTRACPT Dec 22, 2013 URINE TEST Dec 22, 2013 INSERT INTRAUTERINE DEVICE Dec 22, 2013 INSTRUCTIONS MEDICATIONS ADMINISTERED No Known Medications MEDICAL (GENERAL) HISTORY Type Description Date Medical History ADD Surgical History Gallbladder removed
--- OUTSIDE RECORDS SUMMARY | 2020-01-11 06:09 | XMS REPORT ---
Author Author Nancy Campbell Organization [facility] Address [address] [place] [address] Care Team Providers Care Vp Client Services Name Role Phone KETURAH Campbell Unavailable PROBLEMS Type Condition ICD9-CM Code [id number] Code Onset Dates Condition S tatus SNOMED Code Problem Other general counseling and advice for contrace ptive management V25.09 Active 335197425 Problem examination or test, positive result V72.42 Active 195006778 Problem Need for prophylactic vaccination and in oculation against rubella alone V04.3 Active 240912784 Problem Encounter for insertion of intrauterine contraceptive mireya ce V25.11 Active 85483951 Problem Maternal mental disorders, c omplicating , childbirth, or the puerperium, unspecified as to episode of care 648.40 Active 095560358 Problem Surveillance of previously prescribed in trauterine contraceptive device V25.42 Active [id number] Problem Major depressive disorder, recurrent episode, moderate 296 .32 Active 46360062 Problem Screening examination for venereal disease V74.5 Active 289232629 Problem Supervision of normal first V22.0 Active 946351108 Problem Nausea alone 787.02 Active 8679757 07 Problem Unspecified disorder of mens truation and other abnormal bleeding from female genital tract 626.9 Active 5926542 04 Problem Other specified symptom associated with female genital org ans 625.8 Active 917706855 ALLERGIES No Information ENCOUNTERS Encounter Location Date Diagnosis [facility] [address] [facility] [id number] [address] [place] [address] Oct, Abdominal pain R10.9 [facility] [address] [facility] [id number] [place] [id number] Apr, Dental examination Z01.20 and Dental car ies K02.9 [facility] [address] [facility] [id number] [address] [place] [address] Jan, 2016 Acute vomiting R11.10 and Ac amaury diarrhea R19.7 [facility] [address] [id number] [place] [id number] Jun, Dental examination V72.2 [facility] [address] [id number] [place] [address] 14 Jan, 2015 [facility] [id number] [place] [address] 13 Jan, 2015 [facility] [id number] [place] [address] Mar, [facility] [id number] [place] [address] Mar, [facility] [id number] [place] [address] 22 Jan, 2014 [facility] [id number] [place] [address] 22 Jan, 2014 [facility] [id number] [place] [address] 17 Jan, 2014 [facility] [id number] [place] [address] 17 Jan, 2014 [facility] [id number] [place] [address] 16 Jan, 2014 [facility] [id number] [place] [address] 16 Jan, 2014 [facility] [id number] [place] [address] 14 Jan, 2014 [facility] [id number] [place] [address] 10 Jan, 2014 [facility] [id number] [place] [address] 10 Jan, 2014 [facility] [id number] [place] [address] 08 Jan, 2014 [facility] [id number] [place] [address] 08 Jan, 2014 [facility] [address] [facility] [id number] [facility] [place] [address] Jan, [facility] [address] [facility] [id number] [facility] [place] [address] Jan, [facility] [address] [id number] [facility] [place] [address] Dec, [facility] [address] [id number] [place] [address] Dec, [facility] [address] [facility] [id number] [facility] [place] [address] Dec, [facility] [address] [id number] [place] [address] Dec, [facility] [address] [id number] [place] [address] Dec, [facility] [address] [id number] [place] [address] Dec, [facility] [address] [id number] [place] [address] Nov, [facility] [address] [id number] [place] [address] Nov, [facility] [address] [id number] [place] [address] Nov, [facility] [address] [id number] [place] [address] Nov, [facility] [address] [id number] [place] [address] Nov, [facility] [address] [id number] [place] [address] Nov, [facility] [address] [id number] [place] [address] Oct, [facility] [address] [id number] [place] [address] Oct, [facility] [address] [facility] [id number] [place] [address] Jul, [facility] [address] [facility] [id number] [place] [address] Jul, [facility] [address] [id number] [place] [address] Jul, [facility] [address] [id number] [place] [address] Jul, [facility] [address] [id number] [place] [address] Jun, [facility] [address] [id number] [place] [address] May, [facility] [address] [id number] [place] [address] Apr, [facility] [address] [id number] [place] [address] Apr, [facility] [address] [id number] [place] [address] Apr, [facility] [address] [id number] [place] [address] Mar, [facility] [address] [id number] [place] [address] Mar, [facility] [address] [id number] [place] [address] Mar, [facility] [address] [id number] [place] [address] Mar, [facility] [address] [id number] [place] [address] Mar, [facility] [address] [id number] [place] [address] Mar, [facility] [address] [id number] [place] [address] Mar, [facility] [address] [id number] [place] [address] February, [facility] [address] [id number] [place] [address] February, [facility] [address] [id number] [place] [address] February, [facility] [address] [id number] [place] [address] February, [facility] [id number] [place] [address] February, [facility] [address] [id number] [place] [address] February, [facility] [id number] [place] [address] February, [facility] [address] [id number] [place] [address] February, [facility] [address] [id number] [place] [address] Jul, [facility] [address] [id number] [place] [address] Jul, IMMUNIZATIONS No Known Immunizations SOCIAL HISTORY Never Assessed REASON FOR VISIT PLAN OF CARE VITAL SIGNS MEDICATIONS No Known Medications RESULTS No Results PROCEDURES No Known procedures INSTRUCTIONS MEDICATIONS ADMINISTERED No Known Medications MEDICAL (GENERAL) HISTORY Type Description Date Medical History ADD Surgical History Gallbladder removed
--- OUTSIDE RECORDS SUMMARY | 2020-01-11 06:09 | XMS REPORT ---
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 no organization name - patient visit (no phone) 01-28-2018 04-26-2017 Emergency department no information no name (no rox ne) no organization name - patient visit (no phone) 04-26-2017 04-26-2017 Emergency department no information no name (no rox ne) no organization name - patient visit (no phone) 04-26-2017 09-13-2016 Emergency department no information no name (no rox ne) no organization name - patient visit (no phone) 09-13-2016 12-20-2013 Emergency department no information no name (no rox ne) no organization name - patient visit (no phone) 12-20-2013 10-14-2013 Evaluation and no information no name (no phone) n o organization name - management of (no phone) 10-16-2013 inpatient 01-28-2018 Patient encounter no information no name (no phone) no organization name (no phone) 12-24-2017 Patient encounter no information no name (no phone) no organization name - (no phone) 12-24-2017 06-27-2014 Patient encounter no information no name (no phone) no organization name (no phone) 09-11-2013 Patient encounter no information no name (no phone) no organization name - (no phone) 09-12-2013 06-08-2013 Patient encounter no information no name (no phone) no organization name (no phone) 03-11-2013 Patient encounter no information no name (no phone) no organization name (no phone) 05-20-2010 Patient encounter no information no name (no phone) no organization name - (no phone) 05-20-2010 10-24-2019 Patient encounter no information no name (no phone) no organization name - procedure (no phone) 10-24-2019 09-27-2019 Patient encounter no information no name (no phone) no organization name procedure (no phone) 07-29-2019 Patient encounter no information no name (no phone) no organization name procedure (no phone) 06-09-2019 Patient encounter no information no name (no phone) no organization name procedure (no phone) 06-09-2019 Patient encounter no information no name (no phone) no organization name procedure (no phone) 05-24-2019 Patient encounter no information no name (no phone) no organization name procedure (no phone) 05-24-2019 Patient encounter no information no name (no phone) no organization name procedure (no phone) 11-19-2018 Patient encounter no information no name (no phone) no organization name procedure (no phone) 11-18-2018 Patient encounter no information no name (no phone) no organization name procedure (no phone) 04-26-2017 Patient encounter no information no name (no phone) no organization name procedure (no phone) 02-06-2015 Telephone encounter no information Doctor Migration (no [facility] - phone) (no phone) 02-06-2015 - 02-06-2015 02-05-2015 Telephone encounter no information Doctor [facility] (no phone) 02-05-2015 - 02-05-2015 02-06-2014 Telephone encounter no information Doctor [facility] (no phone) 02-06-2014 - 02-06-2014 04-21-2013 Telephone encounter no information Doctor [facility] (no [facility] - phone) (no phone) 04-21-2013 - 04-21-2013 04-20-2013 Telephone encounter no information Doctor [facility] (no [facility] - phone) (no phone) 04-20-2013 - 04-20-2013 04-19-2013 Telephone encounter no information Doctor [facility] (no [facility] - phone) (no phone) 04-19-2013 - 04-19-2013 03-28-2013 Telephone encounter no information Doctor [facility] (no [facility] - phone) (no phone) 03-28-2013 - 03-28-2013 03-20-2013 Telephone encounter no information Doctor [facility] (no [facility] - phone) (no phone) 03-20-2013 - 03-20-2013 03-19-2013 Telephone encounter no information Doctor [facility] (no [facility] - phone) (no phone) 03-19-2013 - 03-19-2013 no information Encounter for dental no name (no phone) no or ganization name examination and (no phone) cleaning without abnormal findings no information Dental examination no name (no phone) no orga nization name (no phone) Medical Equipment No Information Payers The data below is from unstructured sources Payer Name Policy Number Subscriber Name Relationship Self Pay Nancy Randle N 01 Self / Same As Patient History general Narrative - Reported Note Type Note Facility History general Narrative - Reported Type Medical ADD History Surgical Gallbladder removed History [facility] ([id number]) Advance Directives Directive Response Recor ded Date/Time Advance Directives No 10:46pm Health Care Power of Life Skills Coordinator Volunteer No 09/13/16 10:46pm Organ Donor No 09/13/16 10:46pm Resuscitation Status Full Code 09/13/16 10:46pm Directive Response Recor ded Date Advance Directives N 08/07 5:35pm Health Care Power of Life Skills Coordinator Volunteer N 03/04/13 5:35pm Organ Donor N 03/04/13 5 :35pm Directive Response Recor ded Date/Time Advance Directives No 8:42am Health Care Power of Life Skills Coordinator Volunteer No 12/20/13 8:42am Organ Donor Yes 12/20/13 8:42am Directive Response Recor ded Date/Time Advance Directives No 11:46am Health Care Power of Life Skills Coordinator Volunteer No 01/28/18 11:46am Organ Donor No 01/28/18 11:46am Discharge Instructions No hospital discharge instructions.No hospital discharge instructions.No hospital discharge instruction information available. Summary Purpose eClinicalWorks Submission Additional Source Comments This clinical document has been generated using [employer] software that has been certified by the Office of the National Coordinator for Health Information Technology (ONC 15.99.04.3023.Diam.31.00.0.304966) and the National Committee for Flame Annealing Machine Setter (NCQA, as an eMeasure certified technology). FOR RECORDS PERTAINING TO PATIENTS WHO ARE OR HAVE BEEN ENROLLED IN A CHEMICAL D EPENDENCY/SUBSTANCE ABUSE PROGRAM, SOME INFORMATION MAY BE OMITTED. This clinica l summary was aggregated from multiple sources. Caution should be exercised in using it in the provision of clinical care. This summary normalizes information from multiple sources, and as a consequence, information in this document may ma terially change the coding, format and clinical context of patient data. In dez tion, data may be omitted in some cases. CLINICAL DECISIONS SHOULD BE BASED ON T HE PRIMARY CLINICAL RECORDS. [employer] provides no warranty or guara ntee of the accuracy or completeness of information in this document.The followi ng information is based on time limited clinical information UNRECOGNIZED CONTENT PROVIDED BELOW FOR UNRECOGNIZED SECTION REASON FOR VISIT TCA-UrjIKU-[id number]-LymYVG-MigEMR-Shawn UNRECOGNIZED CONTENT PROVIDED BELOW FOR UNRECOGNIZED SECTION MEDICAL (GENERAL) HISTORY Type Description Date Medical History ADD Surgical History Gallbladder removed
--- OUTSIDE RECORDS SUMMARY | 2020-01-11 06:09 | XMS REPORT ---
Author Author Nancy JEFFERSON Organization [facility] Address [address] [place] [address] Care Team Providers Care Fax Machine Operator Name Role Phone KARTHIKEYAN JEFFERSON Unavailable PROBLEMS Type Condition ICD9-CM Code ANQ49-LU Code Onset Dates Condition S tatus SNOMED Code Problem Other general counseling and advice for contrace ptive management V25.09 Active 808693799 Problem examination or test, positive result V72.42 Active 619497480 Problem Need for prophylactic vaccination and in oculation against rubella alone V04.3 Active 888680257 Problem Encounter for insertion of intrauterine contraceptive mireya ce V25.11 Active 14224373 Problem Maternal mental disorders, c omplicating , childbirth, or the puerperium, unspecified as to episode of care 648.40 Active 239540155 Problem Surveillance of previously prescribed in trauterine contraceptive device V25.42 Active [id number] Problem Major depressive disorder, recurrent episode, moderate 296 .32 Active 74699043 Problem Screening examination for venereal disease V74.5 Active 019372155 Problem Supervision of normal first V22.0 Active 300438266 Problem Nausea alone 787.02 Active 7471157 07 Problem Unspecified disorder of mens truation and other abnormal bleeding from female genital tract 626.9 Active 9153802 04 Problem Other specified symptom associated with female genital org ans 625.8 Active 519469205 ALLERGIES No Information ENCOUNTERS Encounter Location Date Diagnosis [facility] [address] [id number] [address] [place] [id number] Oct, Abdominal pain R10.9 [facility] [address] [facility] [id number] [place] [id number] Apr, Dental examination Z01.20 and Dental car ies K02.9 [facility] [address] [id number] [address] [place] [address] 01 Apr, 2016 Acute vomiting R11.10 and Ac amaury diarrhea R19.7 [facility] [address] [facility] [id number] [place] [id number] Jun, Dental examination V72.2 [facility] [address] [id number] [place] [address] 14 Jan, 2015 [facility] [id number] [place] [address] Jan, [facility] [id number] [place] [address] Mar, [facility] [id number] [place] [address] Mar, [facility] [id number] [place] [address] Jan, [facility] [id number] [place] [address] Jan, [facility] [id number] [place] [address] Jan, [facility] [id number] [place] [address] 17 Jan, 2014 [facility] [id number] [place] [address] 16 Jan, 2014 [facility] [id number] [place] [address] 16 Jan, 2014 [facility] [id number] [place] [address] 14 Jan, 2014 [facility] [id number] [place] [address] 10 Jan, 2014 [facility] [id number] [place] [address] 10 Jan, 2014 [facility] [id number] [place] [address] 08 Jan, 2014 [facility] [id number] [place] [address] Jan, [facility] [address] [id number] [place] [address] Jan, [facility] [address] [id number] [place] [address] Jan, [facility] [address] [id number] [place] [address] Dec, [facility] [address] [id number] [place] [address] Dec, [facility] [address] [id number] [place] [address] Dec, [facility] [address] [id number] [place] [address] Dec, [facility] [address] [id number] [place] [address] Dec, [facility] [address] [id number] [place] [address] Dec, [facility] [address] [id number] [place] [address] Nov, [facility] [address] [id number] [place] [address] Nov, [facility] [address] [id number] [place] [address] Nov, [facility] [address] [id number] [place] [address] Nov, [facility] [address] [id number] [place] [address] Nov, [facility] [address] [id number] [place] [address] Nov, [facility] [address] [id number] [place] [address] Oct, [facility] [address] [id number] [place] [address] Oct, [facility] [address] [id number] [place] [address] 24 Jul, 2013 [facility] [address] [id number] [place] [address] 24 Jul, 2013 [facility] [address] [id number] [place] [address] Jul, [facility] [address] [id number] [place] [address] Jul, [facility] [address] [id number] [place] [address] Jun, [facility] [address] [id number] [place] [address] May, [facility] [address] [id number] [place] [address] Apr, [facility] [address] [id number] [place] [address] Apr, [facility] [address] [id number] [place] [address] Apr, [facility] [address] [id number] [place] [address] Mar, [facility] [address] [id number] [place] [address] Mar, [facility] [address] [id number] [place] [address] Mar, [facility] [address] [id number] [place] [address] Mar, [facility] [address] [id number] [place] [address] Mar, [facility] [address] [id number] [place] [address] Mar, [facility] [address] [id number] [place] [address] Mar, [facility] [address] [id number] [place] [address] February, [facility] [address] [id number] [place] [address] February, [facility] [address] [id number] [place] [address] February, [facility] [address] [id number] [place] [address] February, [facility] [address] [id number] [place] [address] February, [facility] [address] [id number] [place] [address] February, [facility] [address] [id number] [place] [address] February, [facility] [address] [id number] [place] [address] February, [facility] [address] [id number] [place] [address] Jul, [facility] [address] [id number] [place] [address] Jul, IMMUNIZATIONS No Known Immunizations SOCIAL HISTORY Never Assessed REASON FOR VISIT PLAN OF CARE VITAL SIGNS MEDICATIONS No Known Medications RESULTS No Results PROCEDURES Procedure Date Ordered Result Body Site PSYTX PT&/FAMILY 45 MINUTES January 31, 2014 INSTRUCTIONS MEDICATIONS ADMINISTERED No Known Medications MEDICAL (GENERAL) HISTORY Type Description Date Medical History ADD Surgical History Gallbladder removed
--- OUTSIDE RECORDS SUMMARY | 2020-01-11 06:09 | XMS REPORT ---
Author Author Nancy Campbell Organization [facility] Address [address] [place] [address] Care Team Providers Care Convenience Store Manager Name Role Phone KETURAH Campbell Unavailable PROBLEMS Type Condition ICD9-CM Code PNA29-LO Code Onset Dates Condition S tatus SNOMED Code Problem Other general counseling and advice for contrace ptive management V25.09 Active 828535239 Problem examination or test, positive result V72.42 Active 419603756 Problem Need for prophylactic vaccination and in oculation against rubella alone V04.3 Active 822461400 Problem Encounter for insertion of intrauterine contraceptive mireya ce V25.11 Active 19973592 Problem Maternal mental disorders, c omplicating , childbirth, or the puerperium, unspecified as to episode of care 648.40 Active 509074642 Problem Surveillance of previously prescribed in trauterine contraceptive device V25.42 Active 719362822485348 Problem Major depressive disorder, recurrent episode, moderate 296 .32 Active 52157943 Problem Screening examination for venereal disease V74.5 Active 764579779 Problem Supervision of normal first V22.0 Active 670091648 Problem Nausea alone 787.02 Active 2088741 07 Problem Unspecified disorder of mens truation and other abnormal bleeding from female genital tract 626.9 Active 8761940 04 Problem Other specified symptom associated with female genital org ans 625.8 Active 589800711 ALLERGIES No Information ENCOUNTERS Encounter Location Date Diagnosis [facility] [address] [facility] [id number] [address] [place] [address] Oct, Abdominal pain R10.9 [facility] [address] [facility] [id number] [place] [id number] Apr, Dental examination Z01.20 and Dental car ies K02.9 [facility] [address] [facility] [id number] [address] [place] [address] Jan, 2016 Acute vomiting R11.10 and Ac amaury diarrhea R19.7 [facility] [address] [id number] [place] [id number] Jun, Dental examination V72.2 [facility] [address] [id number] [place] [address] 14 Jan, 2015 [facility] [id number] [place] [address] 13 Jan, 2015 [facility] [id number] [place] [address] Mar, [facility] [id number] [place] [address] Mar, [facility] [id number] [place] [address] 22 Jan, 2014 [facility] [id number] [place] [address] 22 Jan, 2014 [facility] [id number] [place] [address] 17 Jan, 2014 [facility] [id number] [place] [address] 17 Jan, 2014 [facility] [id number] [place] [address] 16 Jan, 2014 [facility] [id number] [place] [address] 16 Jan, 2014 [facility] [id number] [place] [address] 14 Jan, 2014 [facility] [id number] [place] [address] 10 Jan, 2014 [facility] [id number] [place] [address] 10 Jan, 2014 [facility] [id number] [place] [address] 08 Jan, 2014 [facility] [id number] [place] [address] 08 Jan, 2014 [facility] [address] [facility] [id number] [facility] [place] [address] Jan, [facility] [address] [facility] [id number] [facility] [place] [address] Jan, [facility] [address] [id number] [facility] [place] [address] Dec, [facility] [address] [id number] [place] [address] Dec, [facility] [address] [facility] [id number] [facility] [place] [address] Dec, [facility] [address] [id number] [place] [address] Dec, [facility] [address] [id number] [place] [address] Dec, [facility] [address] [id number] [place] [address] Dec, [facility] [address] [id number] [place] [address] Nov, [facility] [address] [id number] [place] [address] Nov, [facility] [address] [id number] [place] [address] Nov, [facility] [address] [id number] [place] [address] Nov, [facility] [address] [id number] [place] [address] Nov, [facility] [address] [id number] [place] [address] Nov, [facility] [address] [id number] [place] [address] Oct, [facility] [address] [id number] [place] [address] Oct, [facility] [address] [facility] [id number] [place] [address] Jul, [facility] [address] [facility] [id number] [place] [address] Jul, [facility] [address] [id number] [place] [address] Jul, [facility] [address] [id number] [place] [address] Jul, [facility] [address] [id number] [place] [address] Jun, [facility] [address] [id number] [place] [address] May, [facility] [address] [id number] [place] [address] Apr, [facility] [address] [id number] [place] [address] Apr, [facility] [address] [id number] [place] [address] Apr, [facility] [address] [id number] [place] [address] Mar, [facility] [address] [id number] [place] [address] Mar, [facility] [address] [id number] [place] [address] Mar, [facility] [address] [id number] [place] [address] Mar, [facility] [address] [id number] [place] [address] Mar, [facility] [address] [id number] [place] [address] Mar, [facility] [address] [id number] [place] [address] Mar, [facility] [address] [id number] [place] [address] February, [facility] [address] [id number] [place] [address] February, [facility] [address] [id number] [place] [address] February, [facility] [address] [id number] [place] [address] February, [facility] [id number] [place] [address] February, [facility] [address] [id number] [place] [address] February, [facility] [id number] [place] [address] February, [facility] [address] [id number] [place] [address] February, [facility] [address] [id number] [place] [address] Jul, [facility] [address] [id number] [place] [address] Jul, IMMUNIZATIONS No Known Immunizations SOCIAL HISTORY Never Assessed REASON FOR VISIT PLAN OF CARE VITAL SIGNS MEDICATIONS No Known Medications RESULTS No Results PROCEDURES No Known procedures INSTRUCTIONS MEDICATIONS ADMINISTERED No Known Medications MEDICAL (GENERAL) HISTORY Type Description Date Medical History ADD Surgical History Gallbladder removed
--- OUTSIDE RECORDS SUMMARY | 2020-01-11 06:09 | XMS REPORT ---
Author Author Nancy Campbell Organization [facility] Address [address] [place] [address] Care Team Providers Care Wig Sales Consultant Name Role Phone KETURAH Campbell Unavailable PROBLEMS Type Condition ICD9-CM Code ZCN14-OU Code Onset Dates Condition S tatus SNOMED Code Problem Other general counseling and advice for contrace ptive management V25.09 Active 073974178 Problem examination or test, positive result V72.42 Active 199023098 Problem Need for prophylactic vaccination and in oculation against rubella alone V04.3 Active 562294581 Problem Encounter for insertion of intrauterine contraceptive mireya ce V25.11 Active 47151159 Problem Maternal mental disorders, c omplicating , childbirth, or the puerperium, unspecified as to episode of care 648.40 Active 551818576 Problem Surveillance of previously prescribed in trauterine contraceptive device V25.42 Active 411465373104707 Problem Major depressive disorder, recurrent episode, moderate 296 .32 Active 23422938 Problem Screening examination for venereal disease V74.5 Active 892830096 Problem Supervision of normal first V22.0 Active 758243589 Problem Nausea alone 787.02 Active 2853214 07 Problem Unspecified disorder of mens truation and other abnormal bleeding from female genital tract 626.9 Active 4758665 04 Problem Other specified symptom associated with female genital org ans 625.8 Active 885382577 ALLERGIES No Information ENCOUNTERS Encounter Location Date Diagnosis [facility] [address] [facility] [id number] [address] [place] [address] Oct, Abdominal pain R10.9 [facility] [address] [facility] [id number] [place] [id number] Apr, Dental examination Z01.20 and Dental car ies K02.9 [facility] [address] [facility] [id number] [address] [place] [address] Jan, 2016 Acute vomiting R11.10 and Ac amaury diarrhea R19.7 [facility] [address] [id number] [place] [id number] Jun, Dental examination V72.2 [facility] [address] [id number] [place] [address] 14 Jan, 2015 [facility] [id number] [place] [address] 13 Jan, 2015 [facility] [id number] [place] [address] Mar, [facility] [id number] [place] [address] Mar, [facility] [id number] [place] [address] 22 Jan, 2014 [facility] [id number] [place] [address] 22 Jan, 2014 [facility] [id number] [place] [address] 17 Jan, 2014 [facility] [id number] [place] [address] 17 Jan, 2014 [facility] [id number] [place] [address] 16 Jan, 2014 [facility] [id number] [place] [address] 16 Jan, 2014 [facility] [id number] [place] [address] 14 Jan, 2014 [facility] [id number] [place] [address] 10 Jan, 2014 [facility] [id number] [place] [address] 10 Jan, 2014 [facility] [id number] [place] [address] 08 Jan, 2014 [facility] [id number] [place] [address] 08 Jan, 2014 [facility] [address] [facility] [id number] [facility] [place] [address] Jan, [facility] [address] [facility] [id number] [facility] [place] [address] Jan, [facility] [address] [id number] [facility] [place] [address] Dec, [facility] [address] [id number] [place] [address] Dec, [facility] [address] [facility] [id number] [facility] [place] [address] Dec, [facility] [address] [id number] [place] [address] Dec, [facility] [address] [id number] [place] [address] Dec, [facility] [address] [id number] [place] [address] Dec, [facility] [address] [id number] [place] [address] Nov, [facility] [address] [id number] [place] [address] Nov, [facility] [address] [id number] [place] [address] Nov, [facility] [address] [id number] [place] [address] Nov, [facility] [address] [id number] [place] [address] Nov, [facility] [address] [id number] [place] [address] Nov, [facility] [address] [id number] [place] [address] Oct, [facility] [address] [id number] [place] [address] Oct, [facility] [address] [facility] [id number] [place] [address] Jul, [facility] [address] [facility] [id number] [place] [address] Jul, [facility] [address] [id number] [place] [address] Jul, [facility] [address] [id number] [place] [address] Jul, [facility] [address] [id number] [place] [address] Jun, [facility] [address] [id number] [place] [address] May, [facility] [address] [id number] [place] [address] Apr, [facility] [address] [id number] [place] [address] Apr, [facility] [address] [id number] [place] [address] Apr, [facility] [address] [id number] [place] [address] Mar, [facility] [address] [id number] [place] [address] Mar, [facility] [address] [id number] [place] [address] Mar, [facility] [address] [id number] [place] [address] Mar, [facility] [address] [id number] [place] [address] Mar, [facility] [address] [id number] [place] [address] Mar, [facility] [address] [id number] [place] [address] Mar, [facility] [address] [id number] [place] [address] February, [facility] [address] [id number] [place] [address] February, [facility] [address] [id number] [place] [address] February, [facility] [address] [id number] [place] [address] February, [facility] [address] [id number] [place] [address] February, [facility] [address] [id number] [place] [address] February, [facility] [id number] [place] [address] February, [facility] [address] [id number] [place] [address] February, [facility] [address] [id number] [place] [address] Jul, [facility] [address] [id number] [place] [address] Jul, IMMUNIZATIONS No Known Immunizations SOCIAL HISTORY Never Assessed REASON FOR VISIT PLAN OF CARE VITAL SIGNS Height 64 in 2014-01-02 Weight 153.3 lbs 2014-01-02 Temperature 98.1 degrees Fahrenheit 2014-01-02 Heart Rate 78 bpm 2014-01-02 Respiratory Rate 18 2014-01-02 Blood pressure systolic 115 mmHg 2014-01-02 Blood pressure diastolic 74 mmHg 2014-01-02 MEDICATIONS No Known Medications RESULTS No Results PROCEDURES No Known procedures INSTRUCTIONS MEDICATIONS ADMINISTERED No Known Medications MEDICAL (GENERAL) HISTORY Type Description Date Medical History ADD Surgical History Gallbladder removed
--- OUTSIDE RECORDS SUMMARY | 2020-01-11 06:09 | XMS REPORT ---
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 Name Role Phone KETURAH Campbell Unavailable PROBLEMS Type Condition ICD9-CM Code [id number] Code Onset Dates Condition S tatus SNOMED Code Problem Other general counseling and advice for contrace ptive management V25.09 Active 809288776 Problem examination or test, positive result V72.42 Active 405470270 Problem Need for prophylactic vaccination and in oculation against rubella alone V04.3 Active 775255249 Problem Encounter for insertion of intrauterine contraceptive mireya ce V25.11 Active 19731489 Problem Maternal mental disorders, c omplicating , childbirth, or the puerperium, unspecified as to episode of care 648.40 Active 443653574 Problem Surveillance of previously prescribed in trauterine contraceptive device V25.42 Active [id number] Problem Major depressive disorder, recurrent episode, moderate 296 .32 Active 82752452 Problem Screening examination for venereal disease V74.5 Active 727811266 Problem Supervision of normal first V22.0 Active 206718137 Problem Nausea alone 787.02 Active 9622161 07 Problem Unspecified disorder of mens truation and other abnormal bleeding from female genital tract 626.9 Active 4360786 04 Problem Other specified symptom associated with female genital org ans 625.8 Active 292464317 ALLERGIES No Information ENCOUNTERS Encounter Location Date Diagnosis [facility] [address] [facility] [id number] [address] [place] [address] Oct, Abdominal pain R10.9 [facility] [address] [facility] [id number] [place] [id number] Apr, Dental examination Z01.20 and Dental car ies K02.9 [facility] [address] [facility] [id number] [address] [place] [address] Jan, 2016 Acute vomiting R11.10 and Ac amaury diarrhea R19.7 [facility] [address] [id number] [place] [id number] Jun, Dental examination V72.2 [facility] [address] [id number] [place] [address] 14 Jan, 2015 [facility] [id number] [place] [address] 13 Jan, 2015 [facility] [id number] [place] [address] Mar, [facility] [id number] [place] [address] Mar, [facility] [id number] [place] [address] 22 Jan, 2014 [facility] [id number] [place] [address] 22 Jan, 2014 [facility] [id number] [place] [address] 17 Jan, 2014 [facility] [id number] [place] [address] 17 Jan, 2014 [facility] [id number] [place] [address] 16 Jan, 2014 [facility] [id number] [place] [address] 16 Jan, 2014 [facility] [id number] [place] [address] 14 Jan, 2014 [facility] [id number] [place] [address] 10 Jan, 2014 [facility] [id number] [place] [address] 10 Jan, 2014 [facility] [id number] [place] [address] 08 Jan, 2014 [facility] [id number] [place] [address] 08 Jan, 2014 [facility] [place] [facility] [address] [facility] [id number] [facility] [place] [address] Jan, [facility] [place] [address] [facility] [id number] [facility] [place] [address] Jan, [facility] [place] [facility] [address] [id number] [facility] [place] [address] Dec, [facility] [place] [facility] [address] [id number] [place] [address] Dec, [facility] [place] [facility] [address] [facility] [id number] [facility] [place] [address] Dec, [facility] [place] [facility] [address] [id number] [place] [address] Dec, [facility] [place] [facility] [address] [id number] [place] [address] Dec, [facility] [place] [facility] [address] [id number] [place] [address] Dec, [facility] [place] [facility] [address] [id number] [place] [address] Nov, [facility] [place] [facility] [address] [id number] [place] [address] Nov, [facility] [place] [facility] [address] [id number] [place] [address] Nov, [facility] [place] [facility] [address] [id number] [place] [address] Nov, [facility] [place] [facility] [address] [id number] [place] [address] Nov, [facility] [place] [facility] [address] [id number] [place] [address] Nov, [facility] [place] [facility] [address] [id number] [place] [address] Oct, [facility] [place] [facility] [address] [id number] [place] [address] Oct, [facility] [place] [facility] [address] [facility] [id number] [place] [address] Jul, [facility] [place] [facility] [address] [facility] [id number] [place] [address] Jul, [facility] [place] [facility] [address] [id number] [place] [address] Jul, [facility] [place] [facility] [address] [id number] [place] [address] Jul, [facility] [place] [facility] [address] [id number] [place] [address] Jun, [facility] [place] [facility] [address] [id number] [place] [address] May, [facility] [place] [facility] [address] [id number] [place] [address] Apr, [facility] [place] [facility] [address] [id number] [place] [address] Apr, [facility] [place] [facility] [address] [id number] [place] [address] Apr, [facility] [place] [facility] [address] [id number] [place] [address] Mar, [facility] [place] [facility] [address] [id number] [place] [address] Mar, [facility] [place] [facility] [address] [id number] [place] [address] Mar, [facility] [place] [facility] [address] [id number] [place] [address] Mar, [facility] [place] [facility] [address] [id number] [place] [address] Mar, [facility] [place] [address] [id number] [place] [address] Mar, [facility] [place] [facility] [address] [id number] [place] [address] Mar, [facility] [place] [facility] [address] [id number] [place] [address] February, [facility] [address] [id number] [place] [address] February, [facility] [address] [id number] [place] [address] February, [facility] [address] [id number] [place] [address] February, [facility] [address] [id number] [place] [address] February, [facility] [address] [id number] [place] [address] February, [facility] [address] [id number] [place] [address] February, [facility] [address] [id number] [place] [address] February, [facility] [address] [id number] [place] [address] Jul, [facility] [address] [id number] [place] [address] Jul, IMMUNIZATIONS No Known Immunizations SOCIAL HISTORY Never Assessed REASON FOR VISIT PLAN OF CARE VITAL SIGNS Height 64 in 2013-12-14 Weight 172.4 lbs 2013-12-14 Temperature 97.2 degrees Fahrenheit 2013-12-14 Heart Rate 80 bpm 2013-12-14 Respiratory Rate 18 2013-12-14 Blood pressure systolic 114 mmHg 2013-12-14 Blood pressure diastolic 72 mmHg 2013-12-14 MEDICATIONS No Known Medications RESULTS No Results PROCEDURES Procedure Date Ordered Result Body Site URINE TEST Dec 14, 2013 INSTRUCTIONS MEDICATIONS ADMINISTERED No Known Medications MEDICAL (GENERAL) HISTORY Type Description Date Medical History ADD Surgical History Gallbladder removed
--- OUTSIDE RECORDS SUMMARY | 2020-01-11 06:09 | XMS REPORT ---
Author Author Nancy Campbell Organization [facility] Address [address] [place] [address] Care Team Providers Care Route Contractor Name Role Phone KETURAH Campbell Unavailable PROBLEMS Type Condition ICD9-CM Code [id number] Code Onset Dates Condition S tatus SNOMED Code Problem Other general counseling and advice for contrace ptive management V25.09 Active 959872930 Problem examination or test, positive result V72.42 Active 812998361 Problem Need for prophylactic vaccination and in oculation against rubella alone V04.3 Active 361941144 Problem Encounter for insertion of intrauterine contraceptive mireya ce V25.11 Active 06412188 Problem Maternal mental disorders, c omplicating , childbirth, or the puerperium, unspecified as to episode of care 648.40 Active 327318529 Problem Surveillance of previously prescribed in trauterine contraceptive device V25.42 Active 374501087776156 Problem Major depressive disorder, recurrent episode, moderate 296 .32 Active 88403028 Problem Screening examination for venereal disease V74.5 Active 967040968 Problem Supervision of normal first V22.0 Active 872460596 Problem Nausea alone 787.02 Active 9721348 07 Problem Unspecified disorder of mens truation and other abnormal bleeding from female genital tract 626.9 Active 5758802 04 Problem Other specified symptom associated with female genital org ans 625.8 Active 308355211 ALLERGIES No Information ENCOUNTERS Encounter Location Date Diagnosis [facility] [address] [facility] [id number] [address] [place] [address] Oct, Abdominal pain R10.9 [facility] [address] [facility] [id number] [place] [id number] Apr, Dental examination Z01.20 and Dental car ies K02.9 [facility] [address] [facility] [id number] [address] [place] [address] Jan, 2016 Acute vomiting R11.10 and Ac amaury diarrhea R19.7 [facility] [address] [id number] [place] [id number] Jun, Dental examination V72.2 [facility] [address] [id number] [place] [address] 14 Jan, 2015 [facility] [id number] [place] [address] 13 Jan, 2015 [facility] [id number] [place] [address] Mar, [facility] [id number] [place] [address] Mar, [facility] [id number] [place] [address] 22 Jan, 2014 [facility] [id number] [place] [address] 22 Jan, 2014 [facility] [id number] [place] [address] 17 Jan, 2014 [facility] [id number] [place] [address] 17 Jan, 2014 [facility] [id number] [place] [address] 16 Jan, 2014 [facility] [id number] [place] [address] 16 Jan, 2014 [facility] [id number] [place] [address] 14 Jan, 2014 [facility] [id number] [place] [address] 10 Jan, 2014 [facility] [id number] [place] [address] 10 Jan, 2014 [facility] [id number] [place] [address] 08 Jan, 2014 [facility] [id number] [place] [address] 08 Jan, 2014 [facility] [place] [facility] [address] [facility] [id number] [place] [address] Jan, [facility] [place] [facility] [address] [facility] [id number] [place] [address] Jan, [facility] [place] [facility] [address] [id number] [place] [address] Dec, [facility] [place] [facility] [address] [id number] [place] [address] Dec, [facility] [place] [facility] [address] [facility] [id number] [place] [address] Dec, [facility] [place] [facility] [address] [id number] [place] [address] Dec, [facility] [place] [facility] [address] [id number] [place] [address] Dec, [facility] [place] [facility] [address] [id number] [place] [address] Dec, [facility] [place] [facility] [address] [id number] [place] [address] Nov, [facility] [place] [facility] [address] [id number] [place] [address] Nov, [facility] [place] [facility] [address] [id number] [place] [address] Nov, [facility] [place] [facility] [address] [id number] [place] [address] Nov, [facility] [place] [facility] [address] [id number] [place] [address] Nov, [facility] [place] [facility] [address] [id number] [place] [address] Nov, [facility] [place] [facility] [address] [id number] [place] [address] Oct, [facility] [place] [facility] [address] [id number] [place] [address] Oct, [facility] [place] [facility] [address] [facility] [id number] [place] [address] Jul, [facility] [place] [facility] [address] [facility] [id number] [place] [address] Jul, [facility] [place] [facility] [address] [id number] [place] [address] Jul, [facility] [place] [facility] [address] [id number] [place] [address] Jul, [facility] [place] [facility] [address] [id number] [place] [address] Jun, [facility] [place] [facility] [address] [id number] [place] [address] May, [facility] [place] [facility] [address] [id number] [place] [address] Apr, [facility] [place] [facility] [address] [id number] [place] [address] Apr, [facility] [place] [facility] [address] [id number] [place] [address] Apr, [facility] [place] [facility] [address] [id number] [place] [address] Mar, [facility] [place] [facility] [address] [id number] [place] [address] Mar, [facility] [place] [facility] [address] [id number] [place] [address] Mar, [facility] [place] [facility] [address] [id number] [place] [address] Mar, [facility] [place] [facility] [address] [id number] [place] [address] Mar, [facility] [place] [facility] [address] [id number] [place] [address] Mar, [facility] [place] [address] [id number] [place] [address] Mar, [facility] [place] [facility] [address] [id number] [place] [address] February, [facility] [address] [id number] [place] [address] February, [facility] [address] [id number] [place] [address] February, [facility] [address] [id number] [place] [address] February, [facility] [address] [id number] [place] [address] February, [facility] [address] [id number] [place] [address] February, [facility] [id number] [place] [address] February, [facility] [address] [id number] [place] [address] February, [facility] [address] [id number] [place] [address] Jul, [facility] [address] [id number] [place] [address] Jul, IMMUNIZATIONS No Known Immunizations SOCIAL HISTORY Never Assessed REASON FOR VISIT PLAN OF CARE VITAL SIGNS Height 64 in 2014-01-17 Weight 168.2 lbs 2014-01-17 Temperature 97.7 degrees Fahrenheit 2014-01-17 Heart Rate 80 bpm 2014-01-17 Respiratory Rate 18 2014-01-17 Blood pressure systolic 115 mmHg 2014-01-17 Blood pressure diastolic 69 mmHg 2014-01-17 MEDICATIONS No Known Medications RESULTS No Results PROCEDURES No Known procedures INSTRUCTIONS MEDICATIONS ADMINISTERED No Known Medications MEDICAL (GENERAL) HISTORY Type Description Date Medical History ADD Surgical History Gallbladder removed
--- OUTSIDE RECORDS SUMMARY | 2020-01-11 06:10 | XMS REPORT ---
Author Author Nancy GARCIA Organization [facility] Address Unknown Care Team Providers Care Director Inbound Sales Name Role Phone VIJI GARCIA Unavailable PROBLEMS Type Condition ICD9-CM Code [id number] Code Onset Dates Condition S tatus SNOMED Code Problem Other general counseling and advice for contrace ptive management V25.09 Active 047366604 Problem examination or test, positive result V72.42 Active 838419318 Problem Need for prophylactic vaccination and in oculation against rubella alone V04.3 Active 135989142 Problem Encounter for insertion of intrauterine contraceptive mireya ce V25.11 Active 79914772 Problem Maternal mental disorders, c omplicating , childbirth, or the puerperium, unspecified as to episode of care 648.40 Active 617483784 Problem Surveillance of previously prescribed in trauterine contraceptive device V25.42 Active 240168803103154 Problem Major depressive disorder, recurrent episode, moderate 296 .32 Active 24799231 Problem Screening examination for venereal disease V74.5 Active 736907147 Problem Supervision of normal first V22.0 Active 204801463 Problem Nausea alone 787.02 Active 1871506 07 Problem Unspecified disorder of mens truation and other abnormal bleeding from female genital tract 626.9 Active 9029349 04 Problem Other specified symptom associated with female genital org ans 625.8 Active 727131163 ALLERGIES No Information ENCOUNTERS Encounter Location Date Diagnosis [facility] [address] [facility] [id number] [address] [place] [address] Oct, Abdominal pain R10.9 [facility] [address] [facility] [id number] [place] [id number] Apr, Dental examination Z01.20 and Dental car ies K02.9 [facility] [address] [facility] [id number] [address] [place] [address] Jan, Acute vomiting R11.10 and Ac [place] diarrhea R19.7 [facility] [address] [facility] [id number] [place] [id number] 22 Jun, 2015 Dental examination V72.2 [facility] [address] [id number] [place] [address] 14 Jan, 2015 [facility] [address] [id number] [place] [address] 13 Jan, 2015 [facility] [address] [id number] [place] [address] Mar, [facility] [address] [id number] [place] [address] Mar, [facility] [address] [id number] [place] [address] 22 Jan, 2014 [facility] [address] [id number] [place] [address] Jan, [facility] [id number] [place] [address] 17 Jan, 2014 [facility] [address] [id number] [place] [address] 17 Jan, 2014 [facility] [address] [id number] [place] [address] 16 Jan, 2014 [facility] [address] [id number] [place] [address] 16 Jan, 2014 [facility] [id number] [place] [address] 14 Jan, 2014 [facility] [address] [id number] [place] [address] 10 Jan, 2014 [facility] [id number] [place] [address] 10 Jan, 2014 [facility] [address] [id number] [place] [address] 08 Jan, 2014 [facility] [id number] [place] [address] 08 Jan, 2014 [facility] [address] [id number] [place] [address] Jan, [facility] [address] [id number] [place] [address] Jan, [facility] [address] [id number] [place] [address] Dec, [facility] [address] [id number] [place] [address] Dec, [facility] [address] [id number] [place] [address] Dec, [facility] [address] [id number] [place] [address] Dec, [facility] [address] [id number] [place] [address] Dec, [facility] [address] [id number] [place] [address] Dec, [facility] [address] [id number] [place] [address] Nov, [facility] [address] [id number] [place] [address] Nov, [facility] [address] [id number] [place] [address] Nov, [facility] [address] [id number] [place] [address] Nov, [facility] [address] [id number] [place] [address] Nov, [facility] [address] [id number] [place] [address] Nov, [facility] [address] [id number] [place] [address] Oct, [facility] [address] [id number] [place] [address] Oct, [facility] [address] [id number] [place] [address] Jul, [facility] [address] [facility] [id number] [place] [address] Jul, [facility] [address] [facility] [id number] [place] [address] Jul, [facility] [address] [id number] [place] [address] Jul, [facility] [address] [id number] [place] [address] Jun, [facility] [address] [facility] [id number] [place] [address] May, [facility] [address] [id number] [place] [address] Apr, [facility] [address] [id number] [place] [address] Apr, [facility] [address] [id number] [place] [address] Apr, [facility] [address] [id number] [place] [address] Mar, [facility] [address] [id number] [place] [address] Mar, [facility] [address] [id number] [place] [address] Mar, [facility] [address] [id number] [place] [address] Mar, [facility] [address] [id number] [place] [address] Mar, [facility] [address] [id number] [place] [address] Mar, [facility] [address] [id number] [place] [address] Mar, [facility] [address] [id number] [place] [address] February, [facility] [address] [id number] [place] [address] February, [facility] [address] [id number] [place] [address] February, [facility] [address] [id number] [place] [address] February, [facility] [id number] [place] [address] February, [facility] [id number] [place] [address] February, [facility] [id number] [place] [address] February, [facility] [address] [id number] [place] [address] February, [facility] [address] [id number] [place] [address] Jul, [facility] [address] [id number] [place] [address] Jul, IMMUNIZATIONS No Known Immunizations SOCIAL HISTORY Never Assessed REASON FOR VISIT PLAN OF CARE VITAL SIGNS MEDICATIONS No Known Medications RESULTS No Results PROCEDURES Procedure Date Ordered Result Body Site PSYCH DIAGNOSTIC EVALUATION January 27, 2014 INSTRUCTIONS MEDICATIONS ADMINISTERED No Known Medications MEDICAL (GENERAL) HISTORY Type Description Date Medical History ADD Surgical History Gallbladder removed
--- OUTSIDE RECORDS SUMMARY | 2020-01-11 06:10 | XMS REPORT ---
Author Author Nancy Campbell Organization [facility] Address [address] [place] [address] Care Team Providers Care Mail Weigher Name Role Phone KETURAH Campbell Unavailable PROBLEMS Type Condition ICD9-CM Code [id number] Code Onset Dates Condition S tatus SNOMED Code Problem Other general counseling and advice for contrace ptive management V25.09 Active 557408229 Problem examination or test, positive result V72.42 Active 564955089 Problem Need for prophylactic vaccination and in oculation against rubella alone V04.3 Active 193762244 Problem Encounter for insertion of intrauterine contraceptive mireya ce V25.11 Active 04077334 Problem Maternal mental disorders, c omplicating , childbirth, or the puerperium, unspecified as to episode of care 648.40 Active 018307506 Problem Surveillance of previously prescribed in trauterine contraceptive device V25.42 Active 543611250665593 Problem Major depressive disorder, recurrent episode, moderate 296 .32 Active 58001310 Problem Screening examination for venereal disease V74.5 Active 117576159 Problem Supervision of normal first V22.0 Active 029650635 Problem Nausea alone 787.02 Active 3955449 07 Problem Unspecified disorder of mens truation and other abnormal bleeding from female genital tract 626.9 Active 1631072 04 Problem Other specified symptom associated with female genital org ans 625.8 Active 341371918 ALLERGIES No Information ENCOUNTERS Encounter Location Date Diagnosis [facility] [address] [facility] [id number] [address] [place] [address] Oct, Abdominal pain R10.9 [facility] [address] [facility] [id number] [place] [id number] Apr, Dental examination Z01.20 and Dental car ies K02.9 [facility] [address] [facility] [id number] [address] [place] [address] Jan, 2016 Acute vomiting R11.10 and Ac amaury diarrhea R19.7 [facility] [address] [id number] [place] [id number] Jun, Dental examination V72.2 [facility] [address] [id number] [place] [address] 14 Jan, 2015 [facility] [id number] [place] [address] 13 Jan, 2015 [facility] [id number] [place] [address] Mar, [facility] [id number] [place] [address] Mar, [facility] [id number] [place] [address] 22 Jan, 2014 [facility] [id number] [place] [address] 22 Jan, 2014 [facility] [id number] [place] [address] 17 Jan, 2014 [facility] [id number] [place] [address] 17 Jan, 2014 [facility] [id number] [place] [address] 16 Jan, 2014 [facility] [id number] [place] [address] 16 Jan, 2014 [facility] [id number] [place] [address] 14 Jan, 2014 [facility] [id number] [place] [address] 10 Jan, 2014 [facility] [id number] [place] [address] 10 Jan, 2014 [facility] [id number] [place] [address] 08 Jan, 2014 [facility] [id number] [place] [address] 08 Jan, 2014 [facility] [address] [facility] [id number] [facility] [place] [address] Jan, [facility] [address] [facility] [id number] [facility] [place] [address] Jan, [facility] [address] [id number] [facility] [place] [address] Dec, [facility] [address] [id number] [place] [address] Dec, [facility] [address] [facility] [id number] [facility] [place] [address] Dec, [facility] [address] [id number] [place] [address] Dec, [facility] [address] [id number] [place] [address] Dec, [facility] [address] [id number] [place] [address] Dec, [facility] [address] [id number] [place] [address] Nov, [facility] [address] [id number] [place] [address] Nov, [facility] [address] [id number] [place] [address] Nov, [facility] [address] [id number] [place] [address] Nov, [facility] [address] [id number] [place] [address] Nov, [facility] [address] [id number] [place] [address] Nov, [facility] [address] [id number] [place] [address] Oct, [facility] [address] [id number] [place] [address] Oct, [facility] [address] [facility] [id number] [place] [address] Jul, [facility] [address] [facility] [id number] [place] [address] Jul, [facility] [address] [id number] [place] [address] Jul, [facility] [address] [id number] [place] [address] Jul, [facility] [address] [id number] [place] [address] Jun, [facility] [address] [id number] [place] [address] May, [facility] [address] [id number] [place] [address] Apr, [facility] [address] [id number] [place] [address] Apr, [facility] [address] [id number] [place] [address] Apr, [facility] [address] [id number] [place] [address] Mar, [facility] [address] [id number] [place] [address] Mar, [facility] [address] [id number] [place] [address] Mar, [facility] [address] [id number] [place] [address] Mar, [facility] [address] [id number] [place] [address] Mar, [facility] [address] [id number] [place] [address] Mar, [facility] [address] [id number] [place] [address] Mar, [facility] [address] [id number] [place] [address] February, [facility] [address] [id number] [place] [address] February, [facility] [address] [id number] [place] [address] February, [facility] [address] [id number] [place] [address] February, [facility] [address] [id number] [place] [address] February, [facility] [address] [id number] [place] [address] February, [facility] [address] [id number] [place] [address] February, [facility] [address] [id number] [place] [address] February, [facility] [address] [id number] [place] [address] Jul, [facility] [address] [id number] [place] [address] Jul, IMMUNIZATIONS No Known Immunizations SOCIAL HISTORY Never Assessed REASON FOR VISIT PLAN OF CARE VITAL SIGNS Height 64 in 2014-02-02 Weight 160.8 lbs 2014-02-02 Temperature 98 degrees Fahrenheit 2014-02-02 Heart Rate 84 bpm 2014-02-02 Respiratory Rate 20 2014-02-02 Blood pressure systolic 120 mmHg 2014-02-02 Blood pressure diastolic 84 mmHg 2014-02-02 MEDICATIONS No Known Medications RESULTS No Results PROCEDURES Procedure Date Ordered Result Body Site CULTURE, BACTERIA, OTHER February 02, 2014 INSTRUCTIONS MEDICATIONS ADMINISTERED No Known Medications MEDICAL (GENERAL) HISTORY Type Description Date Medical History ADD Surgical History Gallbladder removed
--- OUTSIDE RECORDS SUMMARY | 2020-01-11 06:10 | XMS REPORT ---
Author Author Nancy JEFFERSON Organization [facility] Address [address] [place] [address] Care Team Providers Care Paint Maker Name Role Phone KARTHIKEYAN JEFFERSON Unavailable PROBLEMS Type Condition ICD9-CM Code [id number] Code Onset Dates Condition S tatus SNOMED Code Problem Other general counseling and advice for contrace ptive management V25.09 Active 251593065 Problem examination or test, positive result V72.42 Active 625498075 Problem Need for prophylactic vaccination and in oculation against rubella alone V04.3 Active 581141473 Problem Encounter for insertion of intrauterine contraceptive mireya ce V25.11 Active 27290767 Problem Maternal mental disorders, c omplicating , childbirth, or the puerperium, unspecified as to episode of care 648.40 Active 667212764 Problem Surveillance of previously prescribed in trauterine contraceptive device V25.42 Active [id number] Problem Major depressive disorder, recurrent episode, moderate 296 .32 Active 99285091 Problem Screening examination for venereal disease V74.5 Active 323804670 Problem Supervision of normal first V22.0 Active 862058877 Problem Nausea alone 787.02 Active 9021825 07 Problem Unspecified disorder of mens truation and other abnormal bleeding from female genital tract 626.9 Active 3985043 04 Problem Other specified symptom associated with female genital org ans 625.8 Active [id number] ALLERGIES No Information ENCOUNTERS Encounter Location Date Diagnosis [facility] [address] [facility] [id number] [address] [place] [address] Oct, Abdominal pain R10.9 [facility] [address] [facility] [id number] [place] [id number] Apr, Dental examination Z01.20 and Dental car ies K02.9 [facility] [address] [facility] [id number] [address] [place] [address] 01 Apr, 2016 Acute vomiting R11.10 and Ac amaury diarrhea R19.7 [facility] [address] [facility] [id number] [place] [id number] Jun, Dental examination V72.2 [facility] [address] [id number] [place] [address] 14 Jan, 2015 [facility] [id number] [place] [address] Jan, [facility] [id number] [place] [address] Mar, [facility] [id number] [place] [address] Mar, [facility] [id number] [place] [address] Jan, [facility] [id number] [place] [address] Jan, [facility] [id number] [place] [address] Jan, [facility] [id number] [place] [address] 17 Jan, 2014 [facility] [id number] [place] [address] 16 Jan, 2014 [facility] [id number] [place] [address] 16 Jan, 2014 [facility] [id number] [place] [address] 14 Jan, 2014 [facility] [id number] [place] [address] 10 Jan, 2014 [facility] [id number] [place] [address] 10 Jan, 2014 [facility] [id number] [place] [address] 08 Jan, 2014 [facility] [id number] [place] [address] Jan, [facility] [address] [id number] [place] [address] Jan, [facility] [address] [id number] [place] [address] Jan, [facility] [address] [id number] [place] [address] Dec, [facility] [address] [id number] [place] [address] Dec, [facility] [address] [id number] [place] [address] Dec, [facility] [address] [id number] [place] [address] Dec, [facility] [address] [id number] [place] [address] Dec, [facility] [address] [id number] [place] [address] Dec, [facility] [address] [id number] [place] [address] Nov, [facility] [address] [id number] [place] [address] Nov, [facility] [address] [id number] [place] [address] Nov, [facility] [address] [id number] [place] [address] Nov, [facility] [address] [id number] [place] [address] Nov, [facility] [address] [id number] [place] [address] Nov, [facility] [address] [id number] [place] [address] Oct, [facility] [address] [id number] [place] [address] Oct, [facility] [address] [id number] [place] [address] 24 Jul, 2013 [facility] [address] [id number] [place] [address] 24 Jul, 2013 [facility] [address] [id number] [place] [address] Jul, [facility] [address] [id number] [place] [address] Jul, [facility] [address] [id number] [place] [address] Jun, [facility] [address] [id number] [place] [address] May, [facility] [address] [id number] [place] [address] Apr, [facility] [address] [id number] [place] [address] Apr, [facility] [address] [id number] [place] [address] Apr, [facility] [address] [id number] [place] [address] Mar, [facility] [address] [id number] [place] [address] Mar, [facility] [address] [id number] [place] [address] Mar, [facility] [address] [id number] [place] [address] Mar, [facility] [address] [id number] [place] [address] Mar, [facility] [address] [id number] [place] [address] Mar, [facility] [address] [id number] [place] [address] Mar, [facility] [address] [id number] [place] [address] February, [facility] [address] [id number] [place] [address] February, [facility] [address] [id number] [place] [address] February, [facility] [address] [id number] [place] [address] February, [facility] [address] [id number] [place] [address] February, [facility] [address] [id number] [place] [address] February, [facility] [address] [id number] [place] [address] February, [facility] [address] [id number] [place] [address] February, [facility] [address] [id number] [place] [address] Jul, [facility] [address] [id number] [place] [address] Jul, IMMUNIZATIONS No Known Immunizations SOCIAL HISTORY Never Assessed REASON FOR VISIT PLAN OF CARE VITAL SIGNS MEDICATIONS No Known Medications RESULTS No Results PROCEDURES Procedure Date Ordered Result Body Site PSYTX PT&/FAMILY 45 MINUTES February 09, 2014 INSTRUCTIONS MEDICATIONS ADMINISTERED No Known Medications MEDICAL (GENERAL) HISTORY Type Description Date Medical History ADD Surgical History Gallbladder removed
--- OUTSIDE RECORDS SUMMARY | 2020-01-11 06:10 | XMS REPORT ---
Author Author Nancy JEFFERSON Organization [facility] Address [address] [place] [address] Care Team Providers Care Math Instructor Name Role Phone KARTHIKEYAN JEFFERSON Unavailable PROBLEMS Type Condition ICD9-CM Code XSO85-GV Code Onset Dates Condition S tatus SNOMED Code Problem Other general counseling and advice for contrace ptive management V25.09 Active 381825884 Problem examination or test, positive result V72.42 Active 549187328 Problem Need for prophylactic vaccination and in oculation against rubella alone V04.3 Active 009020826 Problem Encounter for insertion of intrauterine contraceptive mireya ce V25.11 Active 54576782 Problem Maternal mental disorders, c omplicating , childbirth, or the puerperium, unspecified as to episode of care 648.40 Active 425919771 Problem Surveillance of previously prescribed in trauterine contraceptive device V25.42 Active 991988705952210 Problem Major depressive disorder, recurrent episode, moderate 296 .32 Active 56609706 Problem Screening examination for venereal disease V74.5 Active 433572874 Problem Supervision of normal first V22.0 Active 906540769 Problem Nausea alone 787.02 Active 8748091 07 Problem Unspecified disorder of mens truation and other abnormal bleeding from female genital tract 626.9 Active 8125692 04 Problem Other specified symptom associated with female genital org ans 625.8 Active [id number] ALLERGIES No Information ENCOUNTERS Encounter Location Date Diagnosis [facility] [address] [facility] [id number] [address] [place] [address] Oct, Abdominal pain R10.9 [facility] [address] [facility] [id number] [place] [id number] Apr, Dental examination Z01.20 and Dental car ies K02.9 [facility] [address] [facility] [id number] [address] [place] [address] 01 Apr, 2016 Acute vomiting R11.10 and Ac amaury diarrhea R19.7 [facility] [address] [facility] [id number] [place] [id number] Jun, Dental examination V72.2 [facility] [address] [id number] [place] [address] 14 Jan, 2015 [facility] [id number] [place] [address] Jan, [facility] [id number] [place] [address] Mar, [facility] [id number] [place] [address] Mar, [facility] [id number] [place] [address] Jan, [facility] [id number] [place] [address] Jan, [facility] [id number] [place] [address] Jan, [facility] [id number] [place] [address] 17 Jan, 2014 [facility] [id number] [place] [address] 16 Jan, 2014 [facility] [id number] [place] [address] 16 Jan, 2014 [facility] [id number] [place] [address] 14 Jan, 2014 [facility] [id number] [place] [address] 10 Jan, 2014 [facility] [id number] [place] [address] 10 Jan, 2014 [facility] [id number] [place] [address] 08 Jan, 2014 [facility] [id number] [place] [address] Jan, [facility] [address] [id number] [place] [address] Jan, [facility] [address] [id number] [place] [address] Jan, [facility] [address] [id number] [place] [address] Dec, [facility] [address] [id number] [place] [address] Dec, [facility] [address] [id number] [place] [address] Dec, [facility] [address] [id number] [place] [address] Dec, [facility] [address] [id number] [place] [address] Dec, [facility] [address] [id number] [place] [address] Dec, [facility] [address] [id number] [place] [address] Nov, [facility] [address] [id number] [place] [address] Nov, [facility] [address] [id number] [place] [address] Nov, [facility] [address] [id number] [place] [address] Nov, [facility] [address] [id number] [place] [address] Nov, [facility] [address] [id number] [place] [address] Nov, [facility] [address] [id number] [place] [address] Oct, [facility] [address] [id number] [place] [address] Oct, [facility] [address] [id number] [place] [address] 24 Jul, 2013 [facility] [address] [id number] [place] [address] 24 Jul, 2013 [facility] [address] [id number] [place] [address] Jul, [facility] [address] [id number] [place] [address] Jul, [facility] [address] [id number] [place] [address] Jun, [facility] [address] [id number] [place] [address] May, [facility] [address] [id number] [place] [address] Apr, [facility] [address] [id number] [place] [address] Apr, [facility] [address] [id number] [place] [address] Apr, [facility] [address] [id number] [place] [address] Mar, [facility] [address] [id number] [place] [address] Mar, [facility] [address] [id number] [place] [address] Mar, [facility] [address] [id number] [place] [address] Mar, [facility] [address] [id number] [place] [address] Mar, [facility] [address] [id number] [place] [address] Mar, [facility] [address] [id number] [place] [address] Mar, [facility] [address] [id number] [place] [address] February, [facility] [address] [id number] [place] [address] February, [facility] [address] [id number] [place] [address] February, [facility] [address] [id number] [place] [address] February, [facility] [address] [id number] [place] [address] February, [facility] [id number] [place] [address] February, [facility] [address] [id number] [place] [address] February, [facility] [address] [id number] [place] [address] February, [facility] [address] [id number] [place] [address] Jul, [facility] [address] [id number] [place] [address] Jul, IMMUNIZATIONS No Known Immunizations SOCIAL HISTORY Never Assessed REASON FOR VISIT PLAN OF CARE VITAL SIGNS MEDICATIONS No Known Medications RESULTS No Results PROCEDURES No Known procedures INSTRUCTIONS MEDICATIONS ADMINISTERED No Known Medications MEDICAL (GENERAL) HISTORY Type Description Date Medical History ADD Surgical History Gallbladder removed
--- OUTSIDE RECORDS SUMMARY | 2020-01-11 06:10 | XMS REPORT ---
Author Author Nancy Campbell Organization [facility] Address [address] [place] [address] Care Team Providers Care Sld Inclusion Teacher Name Role Phone KETURAH Campbell Unavailable PROBLEMS Type Condition ICD9-CM Code TOH70-QB Code Onset Dates Condition S tatus SNOMED Code Problem Other general counseling and advice for contrace ptive management V25.09 Active 792344841 Problem examination or test, positive result V72.42 Active 105553422 Problem Need for prophylactic vaccination and in oculation against rubella alone V04.3 Active 377640561 Problem Encounter for insertion of intrauterine contraceptive mireya ce V25.11 Active 09642161 Problem Maternal mental disorders, c omplicating , childbirth, or the puerperium, unspecified as to episode of care 648.40 Active 361379321 Problem Surveillance of previously prescribed in trauterine contraceptive device V25.42 Active 105291740504545 Problem Major depressive disorder, recurrent episode, moderate 296 .32 Active 71445271 Problem Screening examination for venereal disease V74.5 Active 725097984 Problem Supervision of normal first V22.0 Active 678219787 Problem Nausea alone 787.02 Active 1146820 07 Problem Unspecified disorder of mens truation and other abnormal bleeding from female genital tract 626.9 Active 5211821 04 Problem Other specified symptom associated with female genital org ans 625.8 Active 071217177 ALLERGIES No Information ENCOUNTERS Encounter Location Date Diagnosis [facility] [address] [facility] [id number] [address] [place] [id number] Oct, Abdominal pain R10.9 [facility] [address] [facility] [id number] [place] [id number] Apr, Dental examination Z01.20 and Dental car ies K02.9 [facility] [address] [facility] [id number] [address] [place] [phone] Jan, 2016 Acute vomiting R11.10 and Ac amaury diarrhea R19.7 [facility] [address] [id number] [place] [id number] Jun, Dental examination V72.2 [facility] [address] [id number] [place] [address] 14 Jan, 2015 [facility] [place] [id number] [place] [address] 13 Jan, 2015 [facility] [id number] [place] [address] Mar, [facility] [id number] [place] [address] Mar, [facility] [id number] [place] [address] 22 Jan, 2014 [facility] [place] [id number] [place] [address] 22 Jan, 2014 [facility] [id number] [place] [address] 17 Jan, 2014 [facility] [id number] [place] [address] 17 Jan, 2014 [facility] [id number] [place] [address] 16 Jan, 2014 [facility] [id number] [place] [address] 16 Jan, 2014 [facility] [id number] [place] [address] 14 Jan, 2014 [facility] [id number] [place] [address] 10 Jan, 2014 [facility] [id number] [place] [address] 10 Jan, 2014 [facility] [id number] [place] [address] 08 Jan, 2014 [facility] [id number] [place] [address] 08 Jan, 2014 [facility] [address] [facility] [id number] [place] [address] Jan, [facility] [address] [facility] [id number] [place] [address] Jan, [facility] [address] [id number] [place] [address] Dec, [facility] [address] [id number] [place] [address] Dec, [facility] [address] [facility] [id number] [place] [address] Dec, [facility] [address] [id number] [place] [address] Dec, [facility] [address] [id number] [place] [address] Dec, [facility] [address] [id number] [place] [address] Dec, [facility] [address] [id number] [place] [address] Nov, [facility] [address] [id number] [place] [address] Nov, [facility] [address] [id number] [place] [address] Nov, [facility] [address] [id number] [place] [address] Nov, [facility] [address] [id number] [place] [address] Nov, [facility] [address] [id number] [place] [address] Nov, [facility] [address] [id number] [place] [address] Oct, [facility] [address] [id number] [place] [address] Oct, [facility] [address] [facility] [id number] [place] [address] Jul, [facility] [address] [facility] [id number] [place] [address] Jul, [facility] [address] [id number] [place] [address] Jul, [facility] [address] [id number] [place] [address] Jul, [facility] [address] [id number] [place] [address] Jun, [facility] [address] [id number] [place] [address] May, [facility] [address] [id number] [place] [address] Apr, [facility] [address] [id number] [place] [address] Apr, [facility] [address] [id number] [place] [address] Apr, [facility] [address] [id number] [place] [address] Mar, [facility] [address] [id number] [place] [address] Mar, [facility] [address] [id number] [place] [address] Mar, [facility] [address] [id number] [place] [address] Mar, [facility] [address] [id number] [place] [address] Mar, [facility] [address] [id number] [place] [address] Mar, [facility] [address] [id number] [place] [address] Mar, [facility] [address] [id number] [place] [address] February, [facility] [address] [id number] [place] [address] February, [facility] [address] [id number] [place] [address] February, [facility] [address] [id number] [place] [address] February, [facility] [id number] [place] [address] February, [facility] [address] [id number] [place] [address] February, [facility] [id number] [place] [address] February, [facility] [address] [id number] [place] [address] February, [facility] [address] [id number] [place] [address] Jul, [facility] [address] [id number] [place] [address] Jul, IMMUNIZATIONS No Known Immunizations SOCIAL HISTORY Never Assessed REASON FOR VISIT PLAN OF CARE VITAL SIGNS MEDICATIONS No Known Medications RESULTS No Results PROCEDURES No Known procedures INSTRUCTIONS MEDICATIONS ADMINISTERED No Known Medications MEDICAL (GENERAL) HISTORY Type Description Date Medical History ADD Surgical History Gallbladder removed
--- NOTE | 2020-01-11 06:12 | NUR ---
ANNE OATES presented to unit via ambulation from ED, , with plan for INDUCTION. ANNE OATES weighed, gowned, voided, and to bed. EFHM and TOCO applied, VS taken. ANNE OATES oriented to bed controls, call light, TV, heat, and A/C controls.
[2020-01-11] MEDS ORDERED: D5 LR IV SOLUTION 1,000 ML IV ONE (06:23)
[2020-01-11] MEDS ORDERED: MINERAL OIL CONCENTRATE 99.9% 15 ML UDC TOP PRN (06:30)
[2020-01-11] MEDS ORDERED: D5 LR IV SOLUTION 1,000 ML IV SCH (06:30)
[2020-01-11] MEDS ORDERED: MEPIVACAINE (CARBOCAINE) 2% 50 ML VIAL INJ PRN (06:30)
[2020-01-11] MEDS ORDERED: OXYTOCIN PRE-MIX DRIP 500 ML IV SCH ×2 (07:15→13:48)
[2020-01-11] MEDS ORDERED: BUTORPHANOL INJ 2 MG/ML (STADOL) VIAL IV PRN (07:15)
--- NOTE | 2020-01-11 07:15 | History & Physical-OB ---
OB - Chief Complaint & HPI Date/Time Date of Admission: Date of Admission: Jan 11, 2020 at 06:03 Date seen by a Provider: Jan 11, 2020 Time Seen by a Provider: 07:05 Chief Complaint/History OB-Reason for Admission/Chief: Induction of Labor Hx : 2 Hx Para: 1 Expected Date of Delivery: Jan 14, 2020 Gestational Age in Weeks: 39 Gestational Age in Days: 4 Admission Nurse Assessment Rev: Yes History of Labs GBS negative Allergies and Home Medications Allergies Coded Allergies: No Known Drug Allergies (Unverified , 12/07/09) Home Medications Ferrous Sulfate 325 Mg Tablet, 325 MG PO DAILY, (Reported) Vit/Iron Fumarate/FA 1 Each Tablet, 1 EACH PO DAILY, (Reported) Patient Home Medication List Home Medication List Reviewed: Yes OB - History Hx of Present Care: Yes Ultrasounds: Normal mid trimester US Obstetrical Complications: None Medical Complications: None Obstetrical History Hx Termination: No Hx Multiple Gestation: No Hx Stillbirth: No Hx Complication: No Hx Induced Hypertens: No Hx Maternal Gestational Diabet: No Delivery History Hx Dystocia: No Hx Large For Gestational Age I: No Hx Small for Gestational Age I: No Hx Section: No Hx Vaginal Delivery Post C-Sec: No Hx Blood Disorders: No Patient Past Medical History no chronic medical problems Social History/Family History HIV/AIDS: No Sexually Transmitted Disease: No 2nd Hand Smoke Exposure: No Immunizations Tetanus Booster (TDap): Unknown OB - Admission Exam Physical Exam Vitals: Vital Signs 01/11/20 07:00 Temp 36.2 Pulse 84 Resp 18 B/P (MAP) 120/76 (91) Pulse Ox 98 O2 Delivery Room Air HEENT: Moist Membranes Heart: Rhythm Normal Lungs: Clear Abdomen: Gravid Extremities: Normal Cervical Dilatation: 1cm Effacement: 50% Station: -3 Membranes: Intact Heart Rate: 140's Accelerations: Accelerations Present Short Term Variability: Present Usp Variability: Average (6-25) Contractions on Admission: >10 Minutes Apart Intensity: Mild Freed Scoring Tool (Modified) Dilation (cm): 1-2cm (1) Effacement (%): 31-51% (1) Descent/Station: -3 (0) Cervix Consistency: Medium(1) Cervix Position: Middle/Mid-Position (1) Add 1 point for: Each previous vaginal delivery (1) Freed Score: 5 OB - Assessment/Plan/Diagnosis Assessment Assessment: induction of labor (at 39w4d) Admission Dx 1. IUP at 39 weeks Admission Status: Inpatient Order (span 2 midnights) Reason for Inpatient Admission: L&D Plan Plan: Induction Induction Method: AROM Other Plan Pitocin as necessary NOA BLAKE MD Jan 11, 2020 07:15
[2020-01-11 07:19] LABS: BASOPHILS % (AUTO) 0 % (0-10); EOSINOPHILS # (AUTO) 0.1 10^3/uL (0.0-0.3); EOSINOPHILS % (AUTO) 1 % (0-10); HEMATOCRIT 35 % (35-52); LYMPHOCYTES # (AUTO) 2.2 X 10^3 (1.0-4.0); LYMPHOCYTES % (AUTO) 23 % (12-44); MEAN CORPUSCULAR HEMOGLOBIN 33 PG (25-34); MEAN CORPUSCULAR HGB CONC 34 G/DL (32-36); MEAN CORPUSCULAR VOLUME 98 FL (80-99); MEAN PLATELET VOLUME 11.4 FL (7.4-10.4); MONOCYTES # (AUTO) 1.1 X 10^3 (0.0-1.0); MONOCYTES % (AUTO) 12 % (0-12); NEUTROPHILS % (AUTO) 64 % (42-75); PLATELET COUNT 202 10^3/uL (130-400); RED CELL DISTRIBUTION WIDTH 13.2 % (10.0-14.5); WHITE BLOOD COUNT 9.5 10^3/uL (4.3-11.0)
[2020-01-11] MEDS ORDERED: ANTACID SUSP 30 ML UDC (MYLANTA) PO PRN (09:45)
--- NOTE | 2020-01-11 13:27 | NUR ---
cord clamped by and cut by family. infant remains on mothers chest dried and stimulated by staff. 1328 cord bloods collected. 1329 spontaneous vaginal delivery of intact placenta by dr morin. sent to lab. Pitocin increased to 125ml/hr per dr orders. 1330 dr morin assessing perineum for tears/lacerations and vaginal bleeding. 1331-32 no repair. pericare performed by this RN. fundal massage light flow with 2 small clots expressed with massage. 1335 vpad aapplied to perineum. 1337 assisted out of stirrups into high fowlers. reviewed diet order. 1340 fundal massage u/1-2 light to moderate flow with small clot expressed. 1350 fundal massage u/1 light flow no clots expressed.
--- NOTE | 2020-01-11 13:48 | OB Labor & Delivery Record ---
L&D History Date of Service Date of Service: Jan 11, 2020 History Expected Date of Delivery: Jan 14, 2020 Gestational Age in Weeks: 39 Hx : 2 Hx Para: 1 Complications Events: Routine care Operative Indications (Cesarea: N/A-Vaginal Delivery Intrapartal Events: None L&D Stage1 Stage One Onset of Labor - Date: Jan 11, 2020 Onset of Labor - Time: 07:10 Monitors and Tracing Monitor Mode: Internal Heart Rate: 125 Monitor Accelerations: Uniform Monitor Decelerations: None Fci Variability: Average (6-10) Short Term Variability: Present Presentation: Vertex Vital Signs VS - Last 72 Hours, by Label 01/11/20 01/11/20 01/11/20 01/11/20 07:00 07:10 07:30 07:45 Temp 36.2 36.2 Pulse 84 72 71 62 Resp 18 18 18 18 B/P (MAP) 120/76 (91) 112/69 (83) 107/71 (83) 120/78 (92) Pulse Ox 98 98 98 99 O2 Delivery Room Air Room Air Room Air Room Air 01/11/20 01/11/20 01/11/20 01/11/20 08:00 08:15 08:19 08:30 Temp 36.2 36.3 Pulse 73 72 84 75 Resp 18 18 20 18 B/P (MAP) 117/77 (90) 113/68 (83) 113/68 (83) Pulse Ox 99 94 98 94 O2 Delivery Room Air Room Air Room Air Room Air 01/11/20 01/11/20 01/11/20 01/11/20 08:45 09:00 09:15 09:30 Pulse 81 78 81 81 Resp 18 18 18 18 B/P (MAP) 115/74 (88) 114/74 (87) 121/72 (88) 121/72 (88) Pulse Ox 99 98 98 98 O2 Delivery Room Air Room Air Room Air Room Air 01/11/20 01/11/20 01/11/20 01/11/20 09:45 10:00 10:15 10:30 Pulse 81 80 69 78 Resp 18 18 18 18 B/P (MAP) 98/59 (72) 109/70 (83) 114/62 (79) 129/72 (91) Pulse Ox 98 98 98 98 O2 Delivery Room Air Room Air Room Air Room Air 01/11/20 01/11/20 01/11/20 01/11/20 10:45 11:00 11:15 11:30 Temp 37.3 Pulse 78 89 91 82 Resp 18 18 20 20 B/P (MAP) 129/72 (91) 126/81 (96) 131/71 (91) 124/67 (86) Pulse Ox 98 98 O2 Delivery Room Air Room Air Room Air Room Air 01/11/20 01/11/20 11:45 12:00 Pulse 82 85 Resp 20 20 B/P (MAP) 124/67 (86) 140/80 (100) O2 Delivery Room Air Room Air Signs of Distress by FHT Signs of Distress no Rupture of Membranes Spontaneous Ruture of Membrane: No Amniotic Membrane Rupture Time: 705 Amniotic Membrane Fluid Desc.: Clear L&D Stage2 Stage Two Stage II Date: Jan 11, 2020 Stage II Time: 12:25 Monitors and Tracing Monitor Mode: Internal Heart Rate: 125 Monitor Accelerations: Uniform Monitor Decelerations: None 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: Average (6-10) Short Term Variability: Present Position: Right Occiput Anterior Presentation: Vertex Signs of Distress by FHT Signs of Distress no Cord Descript/Complications Cord Vessel Description: 3 Vessels Delivery Type Infant Delivery Method: Spontaneous Vaginal Anterior Shoulder: Right Episiotomy/Perineal Laceration Laceraction(s)/Extensions: No Episiotomy Description: None Condition of Infant Delivery 1 minute Comment: 8 5 minute Comment: 9 Condition of Infant Condition of Infant: Living Exam: No Observed Abnormalities Resuscitation Resuscitation: N/A - Spontaneous Resp L&D Stage3 Stage Three Stage III Date: Jan 11, 2020 Stage III Time: 12:30 Pictocin Pitocin Administration mu/min: 6 Pitocin ml/hr: 6 Placenta Delivery Placenta Delivery: Spontaneous Delivery Summary Summary Estimated blood loss (mL): 250 Condition of Delivery Examined: Cervix Examined Post Hemorrhage: No Intervention Required none NOA BLAKE MD Jan 11, 2020 13:48
[2020-01-11] MEDS ORDERED: BENZOCAINE/MENTHOL (DERMOPLAST) 60 ML CAN TP PRN (14:00)
[2020-01-11] MEDS ORDERED: CATHETER FLUSH 10 ML SYR IV SCH ×2 (14:00)
[2020-01-11] MEDS ORDERED: TETANUS,DIPTH,PERTUSS P/F (BOOSTRIX) 0.5 ML VIAL IM ONE (14:00)
[2020-01-11] MEDS ORDERED: WITCH HAZEL(TUCKS) 40 EA JAR TOP PRN (14:00)
[2020-01-11] MEDS ORDERED: MEASLES,MUMPS,RUBELLA 1 EA INJ SQ ONE (14:00)
--- NOTE | 2020-01-11 14:00 | NUR ---
infant at breast actively feeding. denies need. family present. 1415 remains at breast actively feeding. ffu/0 moderate to heavy flow noted. family remains at bedside.
[2020-01-11] MEDS: IBUPROFEN 600 MG (MOTRIN) TAB PO SCH ×2 (15:15→20:30)
[2020-01-11] MEDS ORDERED: ACETAMINOPHEN 500 MG TAB (TYLENOL) PO SCH (18:00)
[2020-01-11] MEDS: DOCUSATE SODIUM 100 MG (COLACE) CAP PO SCH (20:30)
[2020-01-12 03:40] VITALS: BP 104/66
[2020-01-12] MEDS: IBUPROFEN 600 MG (MOTRIN) TAB PO SCH ×2 (03:42→10:46)
[2020-01-12 06:39] LABS: BASOPHILS % (AUTO) 0 % (0-10); EOSINOPHILS # (AUTO) 0.1 10^3/uL (0.0-0.3); EOSINOPHILS % (AUTO) 1 % (0-10); HEMATOCRIT 33 % (35-52); HEMOGLOBIN 11.1 G/DL (11.5-16.0); LYMPHOCYTES # (AUTO) 3.2 X 10^3 (1.0-4.0); LYMPHOCYTES % (AUTO) 22 % (12-44); MEAN CORPUSCULAR HEMOGLOBIN 33 PG (25-34); MEAN CORPUSCULAR HGB CONC 34 G/DL (32-36); MEAN CORPUSCULAR VOLUME 98 FL (80-99); MEAN PLATELET VOLUME 11.6 FL (7.4-10.4); MONOCYTES # (AUTO) 1.6 X 10^3 (0.0-1.0); MONOCYTES % (AUTO) 11 % (0-12); NEUTROPHILS # (AUTO) 9.7 X 10^3 (1.8-7.8); NEUTROPHILS % (AUTO) 66 % (42-75); PLATELET COUNT 188 10^3/uL (130-400); RED CELL DISTRIBUTION WIDTH 13.3 % (10.0-14.5); WHITE BLOOD COUNT 14.6 10^3/uL (4.3-11.0)
[2020-01-12] MEDS ORDERED: PRENATAL VITAMIN 1 EA TAB PO SCH (07:00)
--- NOTE | 2020-01-12 07:23 | Discharge Summary ---
Diagnosis/Chief Complaint Date of Admission Jan 11, 2020 at 06:03 Date of Discharge January 12, 2020 Discharge Date: Jan 12, 2020 Discharge Time: 16:00 Admission Diagnosis Admission Diagnosis 1. Intrauterine at 39 weeks Discharge Diagnosis 1. Intrauterine at 39 weeks Reason Hospital Visit 24-year-old 2 now term 2 who initially presented to labor and delivery during the morning of January 11, 2020 for induction of labor at 39 weeks and 4 days gestation. Her GBS status was noted to be negative. Her care was essentially unremarkable. Discharge Summary-OBS Procedures 1. Spontaneous vaginal delivery Discharge Physical Examination Allergies: Coded Allergies: No Known Drug Allergies (Unverified , 12/07/09) Vitals & I&Os Vital Signs Date Time Temp Pulse Resp B/P (MAP) Pulse Ox O2 Delivery O2 Flow Rate FiO2 01/12/20 03:40 36.2 56 18 104/66 (79) 98 01/11/20 15:00 Room Air General Appearance: No Acute Distress Respiratory: Clear to Auscultation Cardiovascular: Regular Rate Abdominal: Normal Bowel Sounds, Soft (With uterus firm) Neuro: Normal Gait, Normal Speech Hospital Course Following admission in the morning of January 11, 2020 she underwent amniotomy with placement of scalp electrode. Fluid was noted to be clear at that time. She required low-dose Pitocin augmentation. She did not desire epidural and had received no IV pain medications during the course of her labor. She ultimately went on to completion and delivered over an intact perineum a term viable male. received Apgars of 8 at 1 minute and 9 at 5 minutes. Following delivery she underwent routine care orders. She had no complaints during the remainder of hospital stay. Her bleeding vaginally was minimal. Her hemoglobin on admission was 12.0 and following delivery 11.1. She was eager for dismissal during the afternoon of January 11. All questions answered. Pending Labs Laboratory Tests 01/12/20 05:29: White Blood Count 14.6, Red Blood Count 3.36, Hemoglobin 11.1, Hematocrit 33, Mean Corpuscular Volume 98, Mean Corpuscular Hemoglobin 33, Mean Corpuscular Hemoglobin Concent 34, Red Cell Distribution Width 13.3, Platelet Count 188, Mean Platelet Volume 11.6, Neutrophils (%) (Auto) 66, Lymphocytes (%) (Auto) 22, Monocytes (%) (Auto) 11, Eosinophils (%) (Auto) 1, Basophils (%) (Auto) 0, Neutrophils # (Auto) 9.7, Lymphocytes # (Auto) 3.2, Monocytes # (Auto) 1.6, Eosinophils # (Auto) 0.1, Basophils # (Auto) 0.0 Discharge Instructions to patient/family Please see electronic discharge instructions given to patient. Discharge Medications Reviewed and agree with Discharge Medication list on patient's Discharge Instruction sheet Clinical Quality Measures DVT/VTE Risk/Contraindication: Risk Factor Score Per Nursin RFS Level Per Nursing on Admit: 1=Low/No VTE PPX NOA BLAKE MD Jan 12, 2020 07:23
--- NOTE | 2020-01-12 07:31 | Discharge Inst-Women's Service ---
Discharge Inst-Women's Serv Depart Medication/Instructions New, Converted or Re-Newed RX: Other Instructions Ibuprofen 200mg 2 to 3 tabs every 6 hours prn cramps Problems Reviewed?: Yes Consults/Follow Up Additional Follow Up: Yes (Dr Blake in 6 weeks.) Activity Activity: Activity as Tolerated Driving Instructions: You May Drive Nothing Inside Vagina: No [place] (for 6 weeks) Diet Discharge Diet: Regular Diet Return to The Hospital For: as below Symptoms to Report to : Bleeding Excessive, Pain Increased, Fever Over 101 Degrees F, Vaginal Discharge Foul For Any Problems or Questions: Contact Your Physician NOA BLAKE MD Jan 12, 2020 07:31
[2020-01-12] MEDS ORDERED: FERROUS SULF 325 MG (IRON) TAB PO SCH (08:00)
[2020-01-12] MEDS: DOCUSATE SODIUM 100 MG (COLACE) CAP PO SCH (08:04)
[2020-01-12] MEDS ORDERED: NON-FORMULARY MEDICATION 1 EA EA (Prenatal Vit/Iron Fumarate/FA (Prenatal Tablet) 1 EACH) PO SCH (09:00)
[2020-01-12 10:45] VITALS: BP 125/70
[2020-01-12] MEDS ORDERED: MEASLES,MUMPS,RUBELLA 1 EA INJ SC ONE (10:45)
[2020-01-12] MEDS ORDERED: TETANUS,DIPTH,PERTUSS P/F (BOOSTRIX) 0.5 ML VIAL IM ONE (10:45)
== END 2020-01-12 15:00 | disposition home or self-care (01) | DRG 807 ==
LOC: LDRP 06:03
PROVIDERS: ADMIT Family Medicine; ATTEND Family Medicine
PROC: 10E0XZZ Delivery of Products of Conception, External Approach (ICD-10-PCS; principal; 2020-01-11)
PROC: 10907ZC Drainage of Amniotic Fluid, Therapeutic from Products of Conception, Via Natural or Artificial Opening (ICD-10-PCS; 2020-01-11)
DX: O80 Encounter for full-term uncomplicated delivery (principal); Z37.0 Single live birth; Z3A.39 39 weeks gestation of pregnancy; Z23 Encounter for immunization
CPT/HCPCS: 36415; 85025; 86850; 86900; 86901; 90707; 90715

== ENCOUNTER → 2020-12-06 | Outpatient (CLI) | payer MEDICAID ==
--- NOTE | 2020-12-06 16:44 | Diagnostic Imaging Report ---
PROCEDURE: US OB SINGLE FETUS <14 WKS. TECHNIQUE: Multiple real-time grayscale images were obtained over the gravid uterus in various projections. INDICATION: dating. There are no prior studies available for comparison. There are twin living fetuses. In variable presentation. heart rate for twin A was 167 BPM and for twin B 155 BPM. Twin A is on maternal right while twin B is on the maternal left. The growth parameters suggest the estimated gestational age is approximately 11 weeks 5 days +/- 1 week. There were no obvious abnormalities identified. There is a membrane present. The amniotic fluid volume is within normal limits. There is a suggestion of a "lambda sign". This suggests that this is a dichorionic/diamniotic twin . The placenta is posterior. The ovaries were not identified. There is no pelvic mass or free fluid collection noted. IMPRESSION: 1. There are twin living fetuses. The estimated age is approximately 11 weeks 5 days gestation +/- 1 week. The EDC is 06/22/2021. 2. There were no obvious abnormalities identified. If a more sensitive evaluation of the anatomy is desired, then a follow-up exam in 6-8 weeks would be recommended. 3. This does appear to be a dichorionic diamniotic twin . Dictated by: Dictated on workstation # [id number]
== END ==
LOC: RAD 12:00
PROVIDERS: ATTEND Family Medicine
DX: O30.001 Twin pregnancy, unspecified number of placenta and unspecified number of amniotic sacs, first trimester (principal); Z3A.11 11 weeks gestation of pregnancy
CPT/HCPCS: 76801; 76802

== ENCOUNTER → 2021-01-03 | Outpatient (CLI) | payer MEDICAID ==
--- NOTE | 2021-01-03 13:56 | Diagnostic Imaging Report ---
INDICATION: Twin gestation. TECHNIQUE: Multiple real-time grayscale images were obtained over the gravid uterus. COMPARISON: 12/06/2020. FINDINGS: A twin living is again noted. Twin A is to maternal right with a heart rate of 158 bpm and in a cephalic presentation. Twin B is maternal left in the cephalic presentation with a heart rate of 150 bpm. Twin A placenta is posterior and twin B placenta is anterior. Amniotic fluid index appears normal. There is a thin dividing membrane. IMPRESSION: Twin, live dichorionic diamniotic measuring approximately 15-16 weeks gestational age showing normal interval growth when compared with prior exam from 12/06/2020. Biometrical measurements are as follows: Biparietal 3.13 cm, age 15 weeks 6 days. Head circumference 11.63 cm, age 15 weeks 5 days. Abdominal circumference 8.74 cm, age 15 weeks 0 days. Femur length 1.91 cm, age 15 weeks 5 days. Sonographic estimate age: 15 weeks 4 days. Sonographic estimated date of delivery: 06/23/21. Estimated Weight: 123 gm (+/- 18 gm). LMP percentile: 36%. heart rate: 158 beats per minute. number: 1 of 2. Dictated by: Dictated on workstation # [id number]
== END ==
LOC: RAD 11:36
PROVIDERS: ATTEND Family Medicine
DX: O30.042 Twin pregnancy, dichorionic/diamniotic, second trimester (principal); Z3A.15 15 weeks gestation of pregnancy
CPT/HCPCS: 76805; 76810

== ENCOUNTER → 2021-02-04 | Outpatient (CLI) | payer MEDICAID ==
--- NOTE | 2021-02-04 16:30 | Diagnostic Imaging Report ---
INDICATION: Twin gestation follow-up. TECHNIQUE: Multiple real-time grayscale images were obtained over the gravid uterus. COMPARISON: 01/03/2021 FINDINGS: Diamniotic intrauterine pregnancies are again noted measuring 20 weeks 0 days, each by composite measurements. Baby A is in cephalic presentation, baby B is in breech presentation. Amniotic fluid is normal for both fetuses. Placenta is posterior for baby A and anterior for baby B with no evidence of previa. heart rates are within normal range. On both sides, kidneys and bladder and stomach were normal. Four-chamber heart appeared normal. Spine views were normal. Cord insertion appeared normal. Three-vessel cord and intracranial ventricles are not well seen on both sides. Biometrical measurements are as follows: Biparietal 4.60 cm, age 20 weeks 0 days. Head circumference 16.75 cm, age 19 weeks 3 days. Abdominal circumference 14.18 cm, age 19 weeks 4 days. Femur length 3.45 cm, age 21 weeks 0 days. Sonographic estimate age: 20 weeks 0 days. Sonographic estimated date of delivery: 06/24/2021. Estimated Weight: 331 gm (+/- 48 gm). LMP percentile: 50%. heart rate: 169 beats per minute. number: 1 of 2. IMPRESSION: Twin intrauterine gestations are noted, as described above, with normal interval growth compared to the prior study. Visualized anatomy is unremarkable although intracranial ventricles and three-vessel cord were not well seen. I suggest continued follow-up, as clinically warranted. Dictated by: Dictated on workstation # [id number]
--- NOTE | 2021-02-04 17:59 | Diagnostic Imaging Report ---
INDICATION: Twin gestation follow-up. TECHNIQUE: Multiple real-time grayscale images were obtained over the gravid uterus. COMPARISON: 01/03/2021 FINDINGS: Diamniotic intrauterine pregnancies are again noted measuring 20 weeks 0 days, each by composite measurements. Baby A is in cephalic presentation, baby B is in breech presentation. Amniotic fluid is normal for both fetuses. Placenta is posterior for baby A and anterior for baby B with no evidence of previa. heart rates are within normal range. On both sides, kidneys and bladder and stomach were normal. Four-chamber heart appeared normal. Spine views were normal. Cord insertion appeared normal. Three-vessel cord and intracranial ventricles are not well seen on both sides. Biometrical measurements are as follows: Biparietal 4.49 cm, age 19 weeks 5 days. Head circumference 17.20 cm, age 19 weeks 6 days. Abdominal circumference 14.47 cm, age 19 weeks 6 days. Femur length 3.33 cm, age 20 weeks 3 days. Sonographic estimate age: 20 weeks 2 days. Sonographic estimated date of delivery: 06/24/2021. Estimated Weight: 328 gm (+/- 48 gm). LMP percentile: 48%. heart rate: 152 beats per minute. number: 2 of 2. IMPRESSION: Twin intrauterine gestations are noted, as described above, with normal interval growth compared to the prior study. Visualized anatomy is unremarkable although intracranial ventricles and three-vessel cord were not well seen. I suggest continued follow-up, as clinically warranted. Dictated by: Dictated on workstation # [id number]
== END ==
LOC: RAD 11:00
PROVIDERS: ATTEND Family Medicine
DX: O30.042 Twin pregnancy, dichorionic/diamniotic, second trimester (principal); Z3A.20 20 weeks gestation of pregnancy
CPT/HCPCS: 76805; 76810

== ENCOUNTER → 2021-03-07 | Outpatient (CLI) | payer MEDICAID ==
--- NOTE | 2021-03-07 13:02 | Diagnostic Imaging Report ---
INDICATION: Twin . TECHNIQUE: Multiple real-time grayscale images were obtained over the gravid uterus. COMPARISON: 02/04/2021. FINDINGS: Twin live intrauterine is again noted. Twin A is in a cephalic presentation with a heart rate of 147 bpm. Twin A placenta is posterior and amniotic fluid index is 9.5 cm. Twin B is in a breech presentation with a heart rate of 139 bpm. Placenta is anterior. Amniotic fluid index is 12.4 cm. Cervical length is 5.2 cm. Survey demonstrates both fetuses showed normal kidneys, bladder and stomach. brain as well as four-chamber hearts are unremarkable. There is a three-vessel cord with normal insertion. spines are unremarkable. Biometrical measurements are as follows: Biparietal 5.87 cm, age 24 weeks 1 days. Head circumference 21.47 cm, age 23 weeks 4 days. Abdominal circumference 18.63 cm, age 23 weeks 3 days. Femur length 4.56 cm, age 25 weeks 1 days. Sonographic estimate age: 24 weeks 1 days. Sonographic estimated date of delivery: 06/26/2021. Estimated Weight: 659 gm (+/- 96 gm). LMP percentile: 38%. heart rate: 147 beats per minute. number: 1 of 2. IMPRESSION: Dichorionic diamniotic twin approximately 24 weeks gestational age showing normal interval growth when compared with prior exams. No complicating features are identified. Dictated by: Dictated on workstation # [id number]
== END ==
LOC: RAD 10:45
PROVIDERS: ATTEND Family Medicine
DX: O30.002 Twin pregnancy, unspecified number of placenta and unspecified number of amniotic sacs, second trimester (principal); Z3A.24 24 weeks gestation of pregnancy
CPT/HCPCS: 76805; 76810

== ENCOUNTER → 2021-04-19 | Outpatient (CLI) | payer MEDICAID ==
--- NOTE | 2021-04-19 15:27 | Diagnostic Imaging Report ---
INDICATION: Twin . TECHNIQUE: Multiple real-time grayscale images were obtained over the gravid uterus. COMPARISON: None 03/07/2021 FINDINGS: The recent OB ultrasound exam performed on 03/07/2021 noted a dichorionic diamniotic twin approximately 24 weeks gestation. On this exam twin A is in breech presentation and on the maternal right while twin B is cephalic and to the maternal left. The heart rate for twin A is 134 BPM and for twin B also 134 BPM. There are no obvious abnormalities identified. The amniotic fluid index for each twin is approximately 9.9. The placenta for twin A is posterior and for twin B anterior. The membrane was visualized. growth parameters for twin A average 29 weeks 1 day and for twin B 30 weeks 3 days +/- 2.5 weeks. The growth parameters to appear to have progressed as expected since the initial exam of 12/06/2020. However according to the calculation for twin A the LMP percentile is in the 7% range as opposed to 26% on the prior exam. The LMP percentile for twin B is in the 41st percentile as opposed to 47% on the prior exam. The reason for the discrepancy between the LMP percentiles is not certain. I am not convinced that there is IUGR of twin A. Even so, a short-term (2-4 week) follow-up exam would be recommended for further study. Biometrical measurements are as follows: Biparietal 7.03 cm, age 28 weeks 2 days. Head circumference 26.51 cm, age 29 weeks 0 days. Abdominal circumference 24.50 cm, age 28 weeks 6 days. Femur length 5.79 cm, age 30 weeks 0 days. Sonographic estimate age: 29 weeks 1 days. Sonographic estimated date of delivery: 07/04/2021. Estimated Weight: 1358 gm (+/- 198 gm). LMP percentile: 7%. heart rate: 134 beats per minute. number: 1 of 2. IMPRESSION: 1. There are twin living fetuses approximately 30 weeks gestation +/- 3 weeks. The EDC remains 06/22/2021. 2. There were no abnormalities identified. 3. The growth parameters have progressed as expected since the prior exam. However the estimated weight by the LMP percentile for twin A is in only the 7th percentile as opposed to the 41st percentile by twin B. Considerations and recommendations as above. Dictated by: Dictated on workstation # [id number]
== END ==
LOC: RAD 12:00
PROVIDERS: ATTEND Family Medicine
DX: O30.043 Twin pregnancy, dichorionic/diamniotic, third trimester (principal); Z3A.29 29 weeks gestation of pregnancy
CPT/HCPCS: 76805; 76810

== ENCOUNTER 2021-05-28 11:03 | Inpatient (IN) | payer MEDICAID ==
[2021-05-28] VITALS (7 sets, daily range): BP systolic 93–148; BP diastolic 58–83
[~2021-05-28] VITALS: Ht 162.6 cm; Wt 81.2 kg
[2021-05-28] MEDS ORDERED: LACTATED RINGERS 1,000 ML IV ONE (12:07)
--- NOTE | 2021-05-28 12:14 | History & Physical-OB ---
OB - Chief Complaint & HPI Date/Time Date of Admission: Date of Admission: Date seen by a Provider: May 28, 2021 Time Seen by a Provider: 12:10 Chief Complaint/History OB-Reason for Admission/Chief: Onset of Labor Hx : 3 Hx Para: 1 Expected Date of Delivery: Jun 22, 2021 Gestational Age in Weeks: 36 Gestational Age in Days: 4 Indication for : other (Twins with B in transverse position) Admission Nurse Assessment Rev: Yes History of Labs GBS negative at 34 weeks gestation Allergies and Home Medications Allergies Coded Allergies: No Known Drug Allergies (Unverified , 12/07/09) Home Medications Ferrous Sulfate 325 Mg Tablet, 325 MG PO DAILY, (Reported) Vit/Iron Fumarate/FA 1 Each Tablet, 1 EACH PO DAILY, (Reported) Patient Home Medication List Home Medication List Reviewed: Yes OB - History Hx of Present Care: Yes Ultrasounds: Normal mid trimester US Obstetrical Complications: Other (Twins) Medical Complications: None Obstetrical History Hx Termination: No Hx Multiple Gestation: No Hx Stillbirth: No Hx Complication: No Hx Induced Hypertens: No Hx Maternal Gestational Diabet: No Delivery History Hx Dystocia: No Hx Large For Gestational Age I: No Hx Small for Gestational Age I: No Hx Section: No Hx Vaginal Delivery Post C-Sec: No Hx Blood Disorders: No Adverse Rxn to Tranfusion: No Patient Past Medical History no chronic medical problems Social History/Family History 2nd Hand Smoke Exposure: No Immunizations Hepatitis A: Yes Hepatitis B: Yes Tetanus Booster (TDap): Unknown OB - Admission Exam Physical Exam HEENT: Moist Membranes Heart: Rhythm Normal Lungs: Clear Abdomen: Gravid Extremities: Normal Cervical Dilatation: 4cm Effacement: 75% Station: -3 Membranes: Intact Heart Rate: 140's Accelerations: Accelerations Present (both twins) Short Term Variability: Present Contractions on Admission: < 5 Minutes Apart Intensity: Moderate OB - Assessment/Plan/Diagnosis Assessment Assessment: active labor (with twins) Admission Dx 1. IUP twins gestation at 36w4d Admission Status: Inpatient Order (span 2 midnights) Reason for Inpatient Admission: Primary CS due to twin B transverse Plan Plan: Section Other Plan Dr Jade primary surgeon. Peds stone polisher machine to be present Surgery crew notified NOA BLAKE MD May 28, 2021 12:13
[2021-05-28] MEDS ORDERED: metroNIDAZOLE 500MG/100ML IVPB 100 ML ONE (12:15)
[2021-05-28] MEDS ORDERED: ceFAZolin 2 GM IV Premixed 50 ML ONE (12:15)
[2021-05-28] MEDS ORDERED: CITRIC ACID/SOB CIT (BICITRA) 30 ML UDC ONE (12:15)
[2021-05-28] MEDS ORDERED: FAMOTIDINE 20MG/2ML IV (PEPCID) ONE (12:16)
[2021-05-28] MEDS ORDERED: METOCLOPRAMIDE INJ 10 MG/2 ML (REGLAN) ONE (12:16)
[2021-05-28] MEDS ORDERED: ROPIVACAINE 5MG/ML 30ML VIAL ONE (12:32)
[2021-05-28] MEDS ORDERED: fentaNYL INJ 100 MCG/2 ML AMP ONE (12:32)
[2021-05-28] MEDS ORDERED: OXYTOCIN PRE-MIX DRIP 1,000 ML IV ONE (12:43)
[2021-05-28] MEDS ORDERED: PHENYLEPHRINE 100 MCG/ML 10 ML (ANESTHESIA) SYR ONE (13:06)
[2021-05-28 13:09] LABS: BASOPHILS % (AUTO) 0 % (0-10); EOSINOPHILS % (AUTO) 1 % (0-10); HEMATOCRIT 33 % (35-52); HEMOGLOBIN 10.9 g/dL (11.5-16.0); LYMPHOCYTES # (AUTO) 1.4 10^3/uL (1.0-4.0); LYMPHOCYTES % (AUTO) 20 % (12-44); MEAN CORPUSCULAR HEMOGLOBIN 33 pg (25-34); MEAN CORPUSCULAR HGB CONC 33 g/dL (32-36); MEAN CORPUSCULAR VOLUME 100 fL (80-99); MEAN PLATELET VOLUME 10.7 fL (9.0-12.2); MONOCYTES # (AUTO) 0.7 10^3/uL (0.0-1.0); MONOCYTES % (AUTO) 10 % (0-12); NEUTROPHILS # (AUTO) 4.6 10^3/uL (1.8-7.8); NEUTROPHILS % (AUTO) 68 % (42-75); PLATELET COUNT 244 10^3/uL (130-400); WHITE BLOOD COUNT 6.8 10^3/uL (4.3-11.0)
[2021-05-28] MEDS ORDERED: LACTATED RINGERS 1,000 ML IV PRN ×2 (13:15→19:00)
[2021-05-28] MEDS ORDERED: ONDANSETRON 4 MG/2 ML (SDV) Z0FRAN ONE (13:22)
[2021-05-28] MEDS ORDERED: MEASLES,MUMPS,RUBELLA 1 EA INJ SC ONE (13:45)
[2021-05-28] MEDS ORDERED: fentaNYL INJ 100 MCG/2 ML AMP IVP PRN ×2 (13:45)
[2021-05-28] MEDS ORDERED: OXYTOCIN PRE-MIX DRIP 500 ML IV SCH (13:45)
[2021-05-28] MEDS ORDERED: oxyCODONE/APAP 10/325MG (PERCOCET 10) TABLET PO PRN (13:45)
[2021-05-28] MEDS ORDERED: TETANUS,DIPTH,PERTUSS P/F (BOOSTRIX) 0.5 ML VIAL IM ONE (13:45)
[2021-05-28] MEDS ORDERED: D5 LR IV SOLUTION 1,000 ML IV SCH (13:45)
[2021-05-28] MEDS ORDERED: ONDANSETRON 4 MG/2 ML (SDV) Z0FRAN IVP PRN ×3 (13:45→14:00)
[2021-05-28] MEDS ORDERED: KETOROLAC 30 MG/ML VIAL IVP SCH (13:45)
[2021-05-28] MEDS ORDERED: HYDROmorphone 2 MG/ML VIAL (DILAUDID) IV ONE (14:00)
[2021-05-28] MEDS: KETOROLAC 30 MG/ML VIAL IVP SCH ×2 (14:22→20:06)
[2021-05-28] MEDS ORDERED: IBUPROFEN 800 MG (MOTRIN) TAB PO SCH (18:00)
[2021-05-28] MEDS ORDERED: CITRIC ACID/SOB CIT (BICITRA) 30 ML UDC PO ONE (19:00)
[2021-05-28] MEDS ORDERED: METOCLOPRAMIDE INJ 10 MG/2 ML (REGLAN) IV ONE (19:00)
[2021-05-28] MEDS ORDERED: FAMOTIDINE 20MG/2ML IV (PEPCID) IV ONE (19:00)
[2021-05-28] MEDS: DOCUSATE SODIUM 100 MG (COLACE) CAP PO SCH (20:06)
[2021-05-28] MEDS ORDERED: DOCUSATE SODIUM 100 MG (COLACE) CAP PO SCH ×2 (21:00)
[2021-05-28] MEDS: oxyCODONE/APAP 10/325MG (PERCOCET 10) TABLET PO PRN (22:08)
[2021-05-29] MEDS: KETOROLAC 30 MG/ML VIAL IVP SCH (02:06)
[2021-05-29 03:06] VITALS: BP 123/80
[2021-05-29] MEDS: oxyCODONE/APAP 10/325MG (PERCOCET 10) TABLET PO PRN ×2 (03:06→07:58)
--- NOTE | 2021-05-29 04:12 | OPERATIVE REPORT ---
DATE OF SERVICE: 05/28/2021 PREOPERATIVE DIAGNOSES: A 36 and 4/7 weeks' gestation with twin gestation with discordant growth and with labor. POSTOPERATIVE DIAGNOSES: A 36 and 4/7 weeks' gestation with twin gestation with discordant growth and with labor with uterine rupture. RESORT HOST FOR DELIVERY: Dr. Ni. OPERATIVE PROCEDURE: Primary low transverse delivery of viable female infants, twin A being 4 pounds and 10 ounces with a time of 1301 and Apgars of 8 and 9 with twin B being female with weight of 5 pounds 11 ounces, time of 1302 and Apgars of 8 and 9. Both babies had cord blood gas pH of 7.33. OPERATIVE DESCRIPTION: With the patient in the supine position under satisfactory spinal analgesia, she was repositioned supine and then prepped and draped in the usual fashion for abdominal surgery. Cantu catheter was placed in the urinary bladder. A Pfannenstiel incision was made through skin with a scalpel and then, the abdomen was entered in the usual manner. On Opening the peritoneal cavity and prior to placing the bladder retractor, it was clear that membranes were protruding through the abdominal incision. There was rajesh blood in the abdominal cavity. There was an overt uterine rupture of the anterior surface of the uterus. The rupture is actually large enough to deliver both babies through. Baby A was elevated out of pelvis and membranes were ruptured artificially and then, baby A was delivered. Baby A had Apgars and stats as noted above. After the cord was doubly clamped and cut, the infant passed from the field. Baby B was delivered also from vertex in the usual manner also after rupturing membranes. Baby B had Apgars and stats as noted above. The baby B was taken to the warmer by Dr. Ni, the manager fine in attendance for delivery. Placentas were tagged appropriately. Cord bloods were obtained and labeled appropriately for baby A and baby B, and then the placenta delivered spontaneously Schultze that were normal each with a 3-vessel cord. The entire complex was sent to pathology for permanent section. The uterus was now exteriorized and the interior wiped clean through the rupture in the anterior surface of the uterus. This rupture was approximately 6 cm transverse and was associated with a significant degree of Couvelaire uterus as evidenced by the distortion and discoloration of the myometrium. The defect in the uterus was closed with two layers of 2-0 Vicryl suture to reapproximate the entire anterior uterine wall completely and effect hemostasis. Additional couple of sutures of 2-0 Vicryl were used in [id number] fashion to ensure hemostasis. With the uterus repaired, the uterus was returned to the abdominal cavity. All blood clot and debris was removed from the abdominal cavity. With sponge and needle counts correct now and hemostasis assured, anterior parietal peritoneum was closed with a running suture of 2-0 Vicryl. Rectus muscles were closed with that suture as well. The rectus fascia was closed with 2-0 Vicryl, subcutaneous tissue was closed with 2-0 Vicryl and the skin was stapled. Sponge and needle counts were correct on completion of the procedure. Blood loss was around 1000 mL. The patient tolerated the procedure well and was transferred to the recovery room in stable condition. The infants had been both taken to the full-term nursery and were stable for the short term after delivery. Job ID: [id number] DocumentID: [id number] Dictated Date: 05/28/2021 20:12:52 Government Gauger Date: 05/29/2021 02:53:17 Dictated By: MADAI DEVINE MD MTDD
--- NOTE | 2021-05-29 07:42 | Progress Note ---
Standard Progress Note Progress Notes/Assess & Plan Date Seen by a Provider: May 29, 2021 Time Seen by a Provider: 07:39 Progress/Assessment & Plan This patient is without complaint. She is ambulating, voiding, tolerating oral intake well and has good pain control. Patient denies chest pain, denies shortness of breath, denies nausea vomiting, and denies headache. Patient is requesting discharge home. She reports that her babies are doing well in the NICU Vital Signs Date Time Temp Pulse Resp B/P (MAP) Pulse Ox O2 Delivery O2 Flow Rate FiO2 05/29/21 03:06 36.3 71 18 123/80 (94) 99 Room Air 05/28/21 23:15 36.8 80 18 148/80 (102) 100 Room Air 05/28/21 20:06 36.7 68 18 122/71 (88) 98 Room Air 05/28/21 16:15 36.4 53 18 139/83 (101) 100 Room Air 05/28/21 14:23 18 108/73 (85) 100 Room Air 05/28/21 14:04 35.3 18 103/72 (82) 99 Room Air 05/28/21 13:42 36.2 18 93/58 (70) 92 Room Air 05/28/21 13:33 36.4 18 99/60 (73) 93 Room Air I & O 05/29/21 07:00 Intake Total 4450 ml Output Total 2300 ml Balance 2150 ml Vital signs are stable. Patient is afebrile. The abdomen is benign the surgical incision is clean dry and intact. Fundus is firm below the umbilicus and nontender. Extremities show no clubbing or cyanosis. There is no Homans' sign. Assessment and plan Postop day #1 status post primary delivery for twins with dis- concordant growth. Delivery was complicated by a ruptured anterior uterine wall. We had lengthy discussion regarding the surgical findings and procedure. Patient understands that with future pregnancies delivery would be warranted Final Diagnosis 36 weeks primary delivery of twins MADAI DEVINE MD May 29, 2021 07:42
[2021-05-29] MEDS ORDERED: IBUP-1780 PO ×2 (07:43→07:46)
[2021-05-29] MEDS ORDERED: OXYC1TAB12 PO ×2 (07:43→07:46)
[2021-05-29] MEDS ORDERED: DCS100C PO ×2 (07:43→07:46)
--- NOTE | 2021-05-29 07:50 | Discharge Inst-Surgical ---
Discharge Inst-Surgical Depart Medication/Instructions New, Converted or Re-Newed RX: RX on Chart Consults/Follow Up Patient Instructions: As directed Orders & Referrals Follow Up Appt: RTC On , May 30, 2021 or Monday, May 31, 2021 at 9:30 AM for staple removal and for incision check. Call to make follow up appt. for patient in [address] Ni. Wound Care: Remove brent, apply benzoin and steri strips. Activity Per routine post instructions. Please call in RX to patient pharmacy. Diet as tolerated Patient may shower or tub bathe as desired. Continue home meds Activity Activity as Tolerated: No Diet Discharge Diet: No Restrictions MADAI DEVINE MD May 29, 2021 07:50
[2021-05-29] MEDS ORDERED: IBUPROFEN 800 MG (MOTRIN) TAB PO ONE (07:56)
[2021-05-29] MEDS: DOCUSATE SODIUM 100 MG (COLACE) CAP PO SCH (07:57)
[2021-05-29 08:00] VITALS: BP 128/83
[2021-06-02] MEDS ORDERED: IBUPROFEN 800 MG (MOTRIN) TAB PO SCH (12:00)
== END 2021-05-29 12:10 | disposition home or self-care (01) | DRG 786 ==
LOC: WSo 11:03 → LDRP 11:04 → WSo 12:13 → LDRP 15:00
PROVIDERS: ADMIT Obstetrics & Gynecology; ATTEND Obstetrics & Gynecology
PROC: 0UQ90ZZ Repair Uterus, Open Approach (ICD-10-PCS; 2021-05-28)
PROC: 10D00Z1 Extraction of Products of Conception, Low, Open Approach (ICD-10-PCS; principal; 2021-05-28 12:43)
DX: O32.2XX2 Maternal care for transverse and oblique lie, fetus 2 (principal); O45.8X3 Other premature separation of placenta, third trimester; O71.1 Rupture of uterus during labor; O60.14X0 Preterm labor third trimester with preterm delivery third trimester, not applicable or unspecified; O30.003 Twin pregnancy, unspecified number of placenta and unspecified number of amniotic sacs, third trimester; Z3A.36 36 weeks gestation of pregnancy; Z37.2 Twins, both liveborn; O36.5930 Maternal care for other known or suspected poor fetal growth, third trimester, not applicable or unspecified
CPT/HCPCS: 36415; 85025; 94664; 99212

== ENCOUNTER 2021-08-20 06:35 | Outpatient (CLI) | payer MEDICAID ==
[~2021-08-20] VITALS: Ht 162.6 cm; Wt 69.5 kg
[~2021-08-20 06:35] MED LIST changes: +DOCU-239 PO; +IBUP-1780 PO; +OXYC1TAB12 PO
[2021-08-21] MEDS ORDERED: AMPH30TA2 PO (10:59)
[2021-08-21] MEDS ORDERED: BUSP5TAB59 PO (10:59)
== END 2021-08-21 11:47 | disposition home or self-care (01) ==
LOC: PREOP 06:35
PROVIDERS: ATTEND Obstetrics & Gynecology
DX: Z01.818 Encounter for other preprocedural examination (principal)

== ENCOUNTER 2022-08-27 11:06 | Emergency (ER) | payer MEDICAID ==
[~2022-08-27] VITALS: Ht 162 cm; Wt 65.0 kg
[~2022-08-27 11:06] MED LIST changes: +BUSP5TAB59 PO; +CYCL10TA25 PO; -CYCL10TA9 PO
[2022-08-27 11:53] LABS: BILIRUBIN,URINE NEGATIVE (NEGATIVE); CLARITY,URINE CLEAR; COLOR,URINE YELLOW; GLUCOSE, URINE (UA) NEGATIVE (NEGATIVE); KETONES,URINE NEGATIVE (NEGATIVE); LEUKOCYTE ESTERASE ,URINE NEGATIVE (NEGATIVE); NITRITE,URINE NEGATIVE (NEGATIVE); PROTEIN,URINE NEGATIVE (NEGATIVE)
[2022-08-27 11:56] LABS: BASOPHILS % (AUTO) 1 % (0-10); EOSINOPHILS % (AUTO) 1 % (0-10); HEMATOCRIT 41 % (35-52); HEMOGLOBIN 13.6 g/dL (11.5-16.0); LYMPHOCYTES # (AUTO) 1.7 10^3/uL (1.0-4.0); LYMPHOCYTES % (AUTO) 26 % (12-44); MEAN CORPUSCULAR HEMOGLOBIN 32 pg (25-34); MEAN CORPUSCULAR HGB CONC 33 g/dL (32-36); MEAN CORPUSCULAR VOLUME 97 fL (80-99); MEAN PLATELET VOLUME 9.9 fL (9.0-12.2); MONOCYTES # (AUTO) 0.6 10^3/uL (0.0-1.0); MONOCYTES % (AUTO) 8 % (0-12); NEUTROPHILS # (AUTO) 4.3 10^3/uL (1.8-7.8); NEUTROPHILS % (AUTO) 64 % (42-75); PLATELET COUNT 309 10^3/uL (130-400); WHITE BLOOD COUNT 6.7 10^3/uL (4.3-11.0)
[2022-08-27 12:01] LABS: BACTERIA,URINE NEGATIVE /HPF; RBC,URINE 25-50 /HPF; SQUAMOUS EPITHELIAL CELL,UR RARE /HPF
[2022-08-27 12:07] LABS: ALBUMIN 4.2 GM/DL (3.2-4.5); BILIRUBIN,TOTAL 0.4 MG/DL (0.1-1.0); CALCIUM 9.4 MG/DL (8.5-10.1); CREATININE SERUM 0.7 MG/DL (0.60-1.30); POTASSIUM 3.6 MMOL/L (3.6-5.0); TOTAL PROTEIN 7.2 GM/DL (6.4-8.2)
[2022-08-27] MEDS ORDERED: ONDANSETRON 4 MG/2 ML (SDV) Z0FRAN IVP ONE (13:00)
[2022-08-27] MEDS ORDERED: fentaNYL INJ 100 MCG/2 ML AMP IVP ONE (13:00)
[2022-08-27 13:14] LABS: LIPASE 57 U/L (8-78)
--- NOTE | 2022-08-27 13:54 | Diagnostic Imaging Report ---
PROCEDURE: Pelvic comp/transvaginal sonogram. TECHNIQUE: Complete transabdominal and transvaginal pelvic ultrasound was performed. In addition, limited pelvic Doppler was performed. INDICATION: Left-sided pelvic pain. Uterus is anteverted measuring 9.6 x 4.8 x 6.1 cm. Endometrium is 8 mm in thickness. There is some heterogeneity in the anterior uterus measuring 2.3 x 2.0 x 1.9 cm may represent a fibroid. No other uterine masses are seen. Right ovary measures 2.5 x 1.7 x 2.1 cm and left ovary measures 2.5 x 1.2 x 2.1 cm. Ovaries demonstrate blood flow. No adnexal mass or free fluid is seen. Ovaries contain multiple follicles. IMPRESSION: Probable uterine fibroid. The study is otherwise unremarkable. Dictated by: Dictated on workstation # [id number]
--- NOTE | 2022-08-27 14:27 | Diagnostic Imaging Report ---
CLINICAL INDICATION: Patient with left lower abdominal pain x3 weeks. EXAM: CT exam of the abdomen and pelvis is performed without IV or oral contrast using stone protocol. Coronal and sagittal reformatted images were created. Auto Exposure Controls were utilized during the CT exam to meet ALARA standards for radiation dose reduction. COMPARISONS: None. FINDINGS: Visualized lung bases: Unremarkable. Liver: Unremarkable as visualized. Gallbladder: Unremarkable. Pancreas: Unremarkable as visualized. Spleen: Unremarkable as visualized. Adrenal glands: Unremarkable. Kidneys/ ureters: There is a 2 mm nonobstructive stone involving the mid superior aspect of the left kidney. Both kidneys are otherwise unremarkable. Aorta: Unremarkable as visualized. Intraabdominal/ retroperitoneal contents: Unremarkable. Intestines: There is diverticulosis involving the mid and descending colon. There is no CT evidence of diverticulitis. There is no intestinal obstruction. Appendix: Unremarkable. Bladder: Unremarkable as visualized. Pelvic organs: Unremarkable as visualized. Extra abdominal/ pelvis regions: Unremarkable. Abdominal wall: Unremarkable. Bones: Unremarkable. IMPRESSION: 1: There is no CT evidence of acute abdominal or pelvic process. 2: There is a 2 mm nonobstructive stone involving the left kidney. 3: There is diverticulosis with no CT evidence of diverticulitis. Dictated by: Dictated on workstation # [id number]
[2022-08-27] MEDS ORDERED: KETOROLAC 30 MG/ML VIAL IVP ONE (15:30)
--- NOTE | 2022-08-27 15:35 | ED Abdominal Pain ---
General Chief Complaint: Abdominal/GI Problems Stated Complaint: LT SIDE PAIN Nursing Triage Note: PT AMB TO RM 4 PT CO OF L LOWER ABD PAIN 8/10 X 1 WEEK, PT CO OF N/V Source of Information: Patient Exam Limitations: No Limitations History of Present Illness Date Seen by Provider: Aug 27, 2022 Time Seen by Provider: 11:44 Initial Comments This 26-year-old young lady presents to the emergency room with complaints of left flank, back and lower quadrant abdominal pain for about 1 week. She has had some occasional vomiting with it. She sometimes feels lightheaded. Pain has been continuous with waxing and waning intensity since last night. Pain is more severe today. She reports unexpected early menstrual bleeding last week. She denies . She has not had any vaginal discharge. She has a family history of ovarian cyst but no personal history of cysts. She has no prior history of kidney stones. She admits to drinking alcohol daily and excessively. It is common for her to drink a 12 pack of beer and 1.5 bottles of wine daily. She has not consumed alcohol in about 5 days. Allergies and Home Medications Allergies Coded Allergies: No Known Drug Allergies (Unverified , 12/07/09) Patient Home Medication List Home Medication List Reviewed: Yes Buspirone HCl (Buspirone HCl) 5 Mg Tablet, 5 MG PO BID, (Reported) Entered as Reported by: WASHINGTON ROWE on 08/21/21 1059 Dextroamphetamine/Amphetamine (Adderall 30 mg Tablet) 30 Mg Tablet, 30 MG PO BID, (Reported) Entered as Reported by: WASHINGTON ROWE on 08/21/21 1059 Ondansetron (Ondansetron Odt) 4 Mg Tab.rapdis, 4 MG SL Q4H PRN for NAUSEA/VOMITING Prescribed by: MELY MORENO on 08/27/22 1536 Review of Systems Review of Systems Constitutional: no symptoms reported; No fever EENTM: No Symptoms Reported Respiratory: No Symptoms Reported Cardiovascular: No Symptoms Reported Gastrointestinal: See HPI Genitourinary: See HPI Musculoskeletal: no symptoms reported Skin: no symptoms reported Psychiatric/Neurological: See HPI Endocrine: No Symptoms Reported Hematologic/Lymphatic: No Symptoms Reported Past Syqlwgv-Wonzce-Tjswie Hx Patient Social History Tobacco Use?: No Use of E-Cig and/or Vaping dev: Yes E-Cig or Vaping type used: Nicotine Substance use?: No Alcohol Use?: Yes Alcohol type: Beer, Wine Alcohol Frequency: Daily Pt feels they are or have been: No Immunizations Up To Date Tetanus Booster (TDap): Unknown PED Vaccines UTD: Yes Seasonal Allergies Seasonal Allergies: No Past Medical History Surgery/Hospitalization HX: GALL BLADDER, Surgeries: Yes Section, Gallbladder Respiratory: No Cardiac: No Neurological: No : No Last Menstrual Period: Aug 27, 2022 Reproductive Disorders: No Female Reproductive Disorders: Menstrual Problems Sexually Transmitted Disease: No HIV/AIDS: No Genitourinary: Yes (VIVEK ) Gastrointestinal: Yes Gastroesophageal Reflux Musculoskeletal: No Endocrine: No HEENT: No Cancer: No Psychosocial: Yes (Excessive daily alcohol consumption) ADD/ADHD, Anxiety, Depression Integumentary: No Blood Disorders: No Adverse Reaction/Blood Tranf: No Family Medical History No Pertinent Family Hx Physical Exam Vital Signs Vital Signs - First Documented 08/27/22 11:15 Temp 36.1 Pulse 76 Resp 18 B/P (MAP) 143/103 (116) Pulse Ox 100 Capillary Refill : Less Than 3 Seconds Height/Weight/BMI Height: 5'11.00" Weight: 160lbs. 2.0oz. [id number]; 24.00 BMI Method:Stated General Appearance: WD/WN, mild distress HEENT: PERRL/EOMI, normal ENT inspection Neck: normal inspection Respiratory: lungs clear, normal breath sounds, no respiratory distress, no accessory muscle use Cardiovascular: regular rate, rhythm, no edema, no murmur Gastrointestinal: normal bowel sounds, soft; No distended; tenderness (Left lower quadrant and left flank) Extremities: normal inspection, no pedal edema Neurologic/Psychiatric: no motor/sensory deficits, alert, normal mood/affect, o riented x 3 Skin: normal color, warm/dry Progress/Results/Core Measures Results/Orders Lab Results Laboratory Tests Test 08/27/22 11:23 08/27/22 11:30 Range/Units Urine Color YELLOW Urine Clarity CLEAR Urine pH 7.0 5-9 Urine Specific Aiken 1.025 H 1.016-1.022 Urine Protein NEGATIVE NEGATIVE Urine Glucose (UA) NEGATIVE NEGATIVE Urine Ketones NEGATIVE NEGATIVE Urine Nitrite NEGATIVE NEGATIVE Urine Bilirubin NEGATIVE NEGATIVE Urine Urobilinogen 0.2 < = 1.0 MG/DL Urine Leukocyte Esterase NEGATIVE NEGATIVE Urine RBC (Auto) 3+ H NEGATIVE Urine RBC 25-50 H /HPF Urine WBC NONE /HPF Urine Squamous Epithelial Cells RARE /HPF Urine Crystals NONE /LPF Urine Bacteria NEGATIVE /HPF Urine Casts NONE /LPF Urine Mucus NEGATIVE /LPF Urine Culture Indicated NO White Blood Count 6.7 4.3-11.0 10^3/uL Red Blood Count 4.22 3.80-5.11 10^6/uL Hemoglobin 13.6 11.5-16.0 g/dL Hematocrit 41 35-52 % Mean Corpuscular Volume 97 80-99 fL Mean Corpuscular Hemoglobin 32 25-34 pg Mean Corpuscular Hemoglobin Concent 33 32-36 g/dL Red Cell Distribution Width 13.7 10.0-14.5 % Platelet Count 309 130-400 10^3/uL Mean Platelet Volume 9.9 9.0-12.2 fL Immature Granulocyte % (Auto) 0 % Neutrophils (%) (Auto) 64 42-75 % Lymphocytes (%) (Auto) 26 12-44 % Monocytes (%) (Auto) 8 0-12 % Eosinophils (%) (Auto) 1 0-10 % Basophils (%) (Auto) 1 0-10 % Neutrophils # (Auto) 4.3 1.8-7.8 10^3/uL Lymphocytes # (Auto) 1.7 1.0-4.0 10^3/uL Monocytes # (Auto) 0.6 0.0-1.0 10^3/uL Eosinophils # (Auto) 0.0 0.0-0.3 10^3/uL Basophils # (Auto) 0.0 0.0-0.1 10^3/uL Immature Granulocyte # (Auto) 0.0 0.0-0.1 10^3/uL Sodium Level 141 135-145 MMOL/L Potassium Level 3.6 3.6-5.0 MMOL/L Chloride Level 107 98-107 MMOL/L Carbon Dioxide Level 25 21-32 MMOL/L Anion Gap 9 5-14 MMOL/L Blood Urea Nitrogen 6 L 7-18 MG/DL Creatinine 0.70 0.60-1.30 MG/DL Estimat Glomerular Filtration Rate 121 BUN/Creatinine Ratio 9 Glucose Level 101 70-105 MG/DL Calcium Level 9.4 8.5-10.1 MG/DL Corrected Calcium 9.2 8.5-10.1 MG/DL Total Bilirubin 0.4 0.1-1.0 MG/DL Aspartate Amino Transf (AST/SGOT) 20 5-34 U/L Alanine Aminotransferase (ALT/SGPT) 15 0-55 U/L Alkaline Phosphatase 57 40-136 U/L C-Reactive Protein High Sensitivity 0.16 0.00-0.50 MG/DL Total Protein 7.2 6.4-8.2 GM/DL Albumin 4.2 3.2-4.5 GM/DL Lipase 57 8-78 U/L Serum Test, Qualitative NEGATIVE NEGATIVE Serum Alcohol < 10 <10 MG/DL My Orders Orders - MELY DOBBINS MD Cbc With Automated Diff (08/27/22 11:44) Comprehensive Metabolic Panel (08/27/22 11:44) Hcg,Qualitative Serum (08/27/22 11:44) Ua Culture If Indicated (08/27/22 11:44) Ed Iv/Invasive Line Start (08/27/22 11:44) Lipase (08/27/22 12:51) Fentanyl Inj (Sublimaze Injection) (08/27/22 13:00) Ondansetron Injection (Zofran Injectio (08/27/22 13:00) Alcohol (08/27/22 12:51) Us Non Ob Pelvis Comp/Transvag (08/27/22 12:51) Hs C Reactive Protein (08/27/22 13:01) Ct Abd/Pelvis Wo(Kidney Stone) (08/27/22 13:40) Ketorolac Injection (Toradol Injection) (08/27/22 15:30) Medications Given in ED Current Medications Medications Dose Ordered Sig/Trudy Route Start Time Stop Time Status Last Admin Dose Admin Fentanyl Citrate 75 mcg ONCE ONCE IVP 08/27/22 13:00 08/27/22 13:01 DC 08/27/22 13:00 75 MCG Ketorolac Tromethamine 30 mg ONCE ONCE IVP 08/27/22 15:30 08/27/22 15:31 DC 08/27/22 15:44 30 MG Ondansetron HCl 8 mg ONCE ONCE IVP 08/27/22 13:00 08/27/22 13:01 DC 08/27/22 13:00 8 MG Vital Signs/I&O 08/27/22 08/27/22 11:15 15:50 Temp 36.1 Pulse 76 66 Resp 18 18 B/P (MAP) 143/103 (116) 114/88 Pulse Ox 100 100 Blood Pressure Mean: 116 Progress Progress Note : Progress Note Symptoms were treated with fentanyl, Zofran, and Toradol. Ultrasound did not reveal any definitive cause of her pain. Risks and benefits of CT scan were r eviewed with patient. She elected to proceed with CT scan to rule out ureteral stone. Kidney stone was seen on the left but no ureteral stone or other acute pathology. See discharge instructions for further discussion. I did express serious concern about her quantity of alcohol consumption and the rapid deterioration of health which is likely to occur from this habit. Diagnostic Imaging Diagonstic Imaging: Ultrasound Plain Films/CT/US/NM/MRI: pelvis Comments Ultrasound report reviewed and discussed with residential service technician. See report below: NAME: ANNE OATES [facility] REC#: [id number] PT STATUS: DEP ER : 1995 PHYSICIAN: MELY DOBBINS MD ADMIT DATE: 08/27/22/ER Signed Date of Exam:08/27/22 US NON OB PELVIS COMP/TRANSVAG PROCEDURE: Pelvic comp/transvaginal sonogram. TECHNIQUE: Complete transabdominal and transvaginal pelvic ultrasound was performed. In addition, limited pelvic Doppler was performed. INDICATION: Left-sided pelvic pain. Uterus is anteverted measuring 9.6 x 4.8 x 6.1 cm. Endometrium is 8 mm in thickness. There is some heterogeneity in the anterior uterus measuring 2.3 x 2.0 x 1.9 cm may represent a fibroid. No other uterine masses are seen. Right ovary measures 2.5 x 1.7 x 2.1 cm and left ovary measures 2.5 x 1.2 x 2.1 cm. Ovaries demonstrate blood flow. No adnexal mass or free fluid is seen. Ovaries contain multiple follicles. IMPRESSION: Probable uterine fibroid. The study is otherwise unremarkable. Dictated by: Dictated on workstation # [id number] Dict: 08/27/22 1352 Trans: 08/27/22 1558 [facility] [id number] Interpreted by: ROSANNA BARRY MD Electronically signed by: ROSANNA BARRY MD 08/27/22 1558 Diagonstic Imaging: CT Plain Films/CT/US/NM/MRI: abdomen, pelvis Comments CT viewed by me and report reviewed. See report below: NAME: ANNE OATES [facility] REC#: [id number] PT STATUS: DEP ER : 1995 PHYSICIAN: MELY DOBBINS MD ADMIT DATE: 08/27/22/ER Signed Date of Exam:08/27/22 CT ABD/PELVIS WO(KIDNEY STONE) CLINICAL INDICATION: Patient with left lower abdominal pain x3 weeks. EXAM: CT exam of the abdomen and pelvis is performed without IV or oral contrast using stone protocol. Coronal and sagittal reformatted images were created. Auto Exposure Controls were utilized during the CT exam to meet ALARA standards for radiation dose reduction. COMPARISONS: None. FINDINGS: Visualized lung bases: Unremarkable. Liver: Unremarkable as visualized. Gallbladder: Unremarkable. Pancreas: Unremarkable as visualized. Spleen: Unremarkable as visualized. Adrenal glands: Unremarkable. Kidneys/ ureters: There is a 2 mm nonobstructive stone involving the mid superior aspect of the left kidney. Both kidneys are otherwise unremarkable. Aorta: Unremarkable as visualized. Intraabdominal/ retroperitoneal contents: Unremarkable. Intestines: There is diverticulosis involving the mid and descending colon. There is no CT evidence of diverticulitis. There is no intestinal obstruction. Appendix: Unremarkable. Bladder: Unremarkable as visualized. Pelvic organs: Unremarkable as visualized. Extra abdominal/ pelvis regions: Unremarkable. Abdominal wall: Unremarkable. Bones: Unremarkable. IMPRESSION: 1: There is no CT evidence of acute abdominal or pelvic process. 2: There is a 2 mm nonobstructive stone involving the left kidney. 3: There is diverticulosis with no CT evidence of diverticulitis. Dictated by: Dictated on workstation # [id number] Dict: 08/27/22 1417 Trans: 08/27/221758 AS6 [id number] Interpreted by: VAN KWON MD Electronically signed by: VAN KWON MD 08/27/221758 Departure Impression Primary Impression: Left sided abdominal pain of unknown cause Additional Impressions: Kidney stone on left side Nausea & vomiting Qualified Codes: R11.2 - Nausea with vomiting, unspecified Daily consumption of alcohol Disposition: HOME, SELF-CARE Condition: Improved Departure-Patient Inst. Decision time for Depature: 15:32 Referrals: NOA BLAKE MD (PCP/Family) Primary Care Physician Patient Instructions: ALCOHOL AND SUBSTANCE ABUSE, Abdominal Pain, Adult ED, Kidney Stone Diet, Kidney Stone, Adult ED Add. Discharge Instructions: Start with a noncarbonated, nonalcoholic clear liquid diet today. If you are feeling better tomorrow, gradually advance your diet with small quantities of bland food as tolerated. You may take ibuprofen up to 600 mg every 6 hours as needed and/or Tylenol (acetaminophen) up to 1000 mg every 6 hours as needed for pain. If you take ibuprofen, also take an antacid such as Pepcid (famotidine) or omeprazole 20 mg twice daily to protect your stomach. It would be orta to take 1 of these medications twice daily until your abdominal pain resolves. Zofran (ondansetron) may be used for nausea and vomiting as prescribed. Follow-up with your primary care provider soon as possible. Please call this afternoon or tomorrow morning for an appointment time. If you have worsening symptoms, please return to the emergency room for further evaluation, especially if you develop fever, blood in your stools, blood in your vomit, escalating pain, etc. Please work on alcohol cessation. If you are unable to quit alcohol on your own, please seek help from , [facility], your primary care provider, etc. If drinking significant quantities of alcohol daily, avoid abruptly stopping alcohol as this may cause life-threatening withdrawal symptoms including seizures. You should taper down on your quantity of alcohol before quitting completely. Information on kidney stones and kidney stone diet is provided in this packet. All discharge instructions reviewed with patient and/or family. Voiced understanding. Scripts Ondansetron (Ondansetron Odt) 4 Mg Tab.rapdis 4 MG SL Q4H PRN for NAUSEA/VOMITING, #10 TAB Prov: MELY DOBBINS MD 08/27/22 Copy Copies To 1: NOA BLAKE MD, JOSHUA T MD Aug 27, 2022 15:35
[2022-08-27] MEDS ORDERED: ONDA4TAB11 SL (15:36)
[2022-08-27 15:50] VITALS: BP 114/88
== END 2022-08-27 15:50 | disposition home or self-care (01) ==
LOC: EDUNIT# 11:06 → ER 11:09
DX: N20.0 Calculus of kidney (principal); F17.290 Nicotine dependence, other tobacco product, uncomplicated; Z32.02 Encounter for pregnancy test, result negative; Z28.310 Unvaccinated for COVID-19
CPT/HCPCS: 74176; 76830; 76856; 80053; 81000; 83690; 84703 ×2; 85025; 86141; 99283; G0480; 36415; 80320

== ENCOUNTER 2023-01-23 11:29 | Emergency (ER) | payer MEDICAID ==
[~2023-01-23] VITALS: Ht 157 cm; Wt 67.5 kg
[~2023-01-23 11:29] MED LIST changes: +ONDA4TAB11 SL
[2023-01-23] MEDS ORDERED: ONDANSETRON 4 MG (ZOFRAN) ORAL DISSOLVE TAB SL STA (11:49)
--- NOTE | 2023-01-23 12:20 | ED GU-Female ---
General Chief Complaint: OB < 20 WEEKS Stated Complaint: 15 WEEKS PREG | ABD PAIN | SPOTTING Nursing Triage Note: PT AMBULATORY TO ER. REPORTS CURERNTLY 15 WEEKS , REPORTS 0500 TODAY STARTED HAVING ABD PAIN/CRAMPING, VAGINAL BLEEDING, REPORTS NOTED THE BLOOD WHEN SHE WAS WIPING EARLIER. STATES 'IT DOES NOT FEEL LIKE I'M ANYMORE'. PT REPORTS THIS IS PREGNACY 4, 4 LIVING CHILDREN(1 SET OF TWINS). History of Present Illness Date Seen by Provider: Jan 23, 2023 Time Seen by Provider: 11:50 Initial Comments 27-year-old female presents approximately 15 weeks . Patient reports that she started having some feeling of cramping yesterday and a little bit of mild spotting when she wiped today. Patient is a with her last being twins which she suffered uterine rupture. Patient was concerned so she wanted come in to be checked out. Allergies and Home Medications Allergies Coded Allergies: No Known Drug Allergies (Unverified , 12/07/09) Patient Home Medication List Home Medication List Reviewed: Yes Buspirone HCl (Buspirone HCl) 5 Mg Tablet, 5 MG PO BID, (Reported) Entered as Reported by: WASHINGTON ROWE on 08/21/21 1059 Dextroamphetamine/Amphetamine (Adderall 30 mg Tablet) 30 Mg Tablet, 30 MG PO BID, (Reported) Entered as Reported by: WASHINGTON ROWE on 08/21/21 1059 Ondansetron (Ondansetron Odt) 4 Mg Tab.rapdis, 4 MG SL Q4H PRN for NAUSEA/VOMITING Prescribed by: MELY MORENO on 08/27/22 1536 Review of Systems Review of Systems Constitutional: no symptoms reported Respiratory: no symptoms reported Cardiovascular: no symptoms reported Genitourinary: see HPI : Yes Expected Date of Delivery: Jul 17, 2023 Musculoskeletal: no symptoms reported Skin: no symptoms reported Psychiatric/Neurological: No Symptoms Reported Past Hpjdfsf-Ifevtt-Kaxwxj Hx Patient Social History Tobacco Use?: Yes Tobacco type used: Cigarettes Smoking Status: Current Everyday Smoker Substance use?: No Alcohol Use?: No Pt feels they are or have been: No Immunizations Up To Date Tetanus Booster (TDap): Unknown PED Vaccines UTD: Yes First/Initial COVID19 Vaccinat: DENIES Seasonal Allergies Seasonal Allergies: No Past Medical History Surgery/Hospitalization HX: GALL BLADDER, Surgeries: Yes Section, Gallbladder Respiratory: No Cardiac: No Neurological: No Expected Date of Delivery: Jul 17, 2023 Last Menstrual Period: Oct 10, 2022 Reproductive Disorders: No Female Reproductive Disorders: Menstrual Problems Sexually Transmitted Disease: No HIV/AIDS: No Genitourinary: Yes (VIVEK ) Gastrointestinal: Yes Gastroesophageal Reflux Musculoskeletal: No Endocrine: No HEENT: No Cancer: No Psychosocial: Yes (Excessive daily alcohol consumption) ADD/ADHD, Anxiety, Depression Integumentary: No Blood Disorders: No Adverse Reaction/Blood Tranf: No Family Medical History No Pertinent Family Hx Physical Exam Vital Signs Vital Signs - First Documented 01/23/23 11:37 Temp 36.7 Pulse 86 Resp 18 B/P (MAP) 117/68 (84) Capillary Refill : Height, Weight, BMI Height: 5'11.00" Weight: 160lbs. 2.0oz. 72.480292ru; 27.00 BMI Method:Stated General Appearance: WD/WN, no apparent distress Neck: full range of motion Cardiovascular: regular rate, rhythm, no edema Gastrointestinal: non tender Extremities: normal range of motion, non-tender Neurologic/Psychiatric: alert, normal mood/affect, oriented x 3 Skin: normal color, warm/dry Progress/Results/Core Measures Suspected Sepsis SIRS Temperature: Pulse: 86 Respiratory Rate: 18 Blood Pressure 117 /68 Mean: 84 Results/Orders My Orders Orders - KLAUDIA RAMIREZ DO Us Ob Preg Late(14-40wks)15318 (01/23/23 11:49) Ondansetron Oral Dissolve Tab (Zofran (01/23/23 11:49) Vital Signs/I&O 01/23/23 11:37 Temp 36.7 Pulse 86 Resp 18 B/P (MAP) 117/68 (84) Capillary Refill : Blood Pressure Mean: 84 Progress Note : Progress Note Patient's ultrasound was ordered and reviewed with initial interpretation by me with final interpretation per radiology report. Patient's initial heart tones showed around 150s to 160s. There was good movement with no abnormality noted. Patient not having any significant bleeding but may be a little bit of spotting with wiping. A UA was offered but patient declined at this time. She reports she has an appointment in a couple days with her doctor and will just have it checked at that time as she feels as needed. Patient with no other concerns at this time and is discharged home Departure Impression Primary Impression: Abdominal cramping affecting Additional Impression: 15 weeks gestation of Disposition: HOME, SELF-CARE Condition: Stable Departure-Patient Inst. Referrals: FUENTES LUONG DO (PCP/Family) Primary Care Physician Patient Instructions: - The Fourth Month, Nutrition Before and During Add. Discharge Instructions: Please follow-up with your primary care provider next week for continued pr egnancy management. Please be sure you are taking her vitamins. Return to the ER with any concerns All discharge instructions reviewed with patient and/or family. Voiced understanding. KLAUDIA RAMIREZ DO Jan 23, 2023 12:19
[2023-01-23 12:55] VITALS: BP 129/77
--- NOTE | 2023-01-23 12:58 | Diagnostic Imaging Report ---
INDICATION: Vaginal bleeding. 15 weeks . TECHNIQUE: Multiple real-time grayscale images were obtained over the gravid uterus. COMPARISON: None. FINDINGS: A single live intrauterine gestation is visualized in variable position. heart tones measure 147 BPM. The placenta is posterior and not low lying. Color Doppler ultrasound of the placenta was not performed. The MAYELA visually appears normal, although no dedicated measurements were obtained. A formal anatomic survey was not performed; however, no obvious abnormalities are seen. The bilateral adnexa have an unremarkable appearance. Biometrical measurements are as follows: Biparietal 2.59 cm, age 14 weeks 4 days. Head circumference 10.51 cm, age 15 weeks 0 days. Abdominal circumference 9.05 cm, age 15 weeks 2 days. Femur length 1.76 cm, age 15 weeks 2 days. Sonographic estimate age: 15 weeks 1 days. Sonographic estimated date of delivery: 07/16/2023. Estimated Weight: 117 gm (+/- 18 gm). LMP percentile: 51%. heart rate: 147 beats per minute. number: 1 of 1. IMPRESSION: 1. Single live intrauterine gestation measuring 15 weeks 1 day with an estimated due date of 07/16/2023. These are within range with the clinical dates. 2. Posterior placenta. No color Doppler ultrasound was performed of the placenta. If concern for abruption, recommend repeat ultrasound to better evaluate the placenta. 3. No obvious anatomic abnormalities are seen. The adnexa are unremarkable. Dictated by: Dictated on workstation # [id number]
== END 2023-01-23 12:55 | disposition home or self-care (01) ==
LOC: EDUNIT# 11:29 → ER 11:32
DX: O26.892 Other specified pregnancy related conditions, second trimester (principal); R10.9 Unspecified abdominal pain; O99.332 Smoking (tobacco) complicating pregnancy, second trimester; F17.210 Nicotine dependence, cigarettes, uncomplicated; Z3A.15 15 weeks gestation of pregnancy; Z28.310 Unvaccinated for COVID-19
CPT/HCPCS: 76805

== ENCOUNTER → 2023-03-03 | Outpatient (CLI) | payer MEDICAID ==
--- NOTE | 2023-03-03 15:42 | Diagnostic Imaging Report ---
INDICATION: Supervision during normal . CORRELATION: 01/23/2023 FINDINGS: Single viable intrauterine currently in a variable but ending position cephalic presentation. Amount of amniotic fluid is normal, index at 12.38 cm. Placenta posterior and without evidence for previa. Visualized anatomical structures including the kidneys, bladder, stomach, intracranial structures, four-chamber heart, three-vessel cord and insertion site, spine and extremities appearing unremarkable. Biometrical measurements are as follows: Biparietal 4.62 cm, age 20 weeks 0 days. Head circumference 17.57 cm, age 20 weeks 1 days. Abdominal circumference 15.01 cm, age 20 weeks 3 days. Femur length 3.13 cm, age 19 weeks 6 days. Sonographic estimate age: 20 weeks 1 days. Sonographic estimated date of delivery: 07/20/2023. Estimated Weight: 329 gm (+/- 48 gm). LMP percentile: 32%. heart rate: 144 beats per minute. number: 1 of 1. IMPRESSION: 1. Single viable intrauterine , currently in a cephalic presentation. 2. Sonographic estimated age 20 weeks 1 day, with an estimated date of delivery 07/20/2023. 3. No sonographic abnormalities demonstrated at this time. Dictated by: Dictated on workstation # [id number]
== END ==
LOC: RAD 09:47
PROVIDERS: ATTEND Nurse Practitioner Women's Health
DX: Z34.02 Encounter for supervision of normal first pregnancy, second trimester (principal); Z3A.20 20 weeks gestation of pregnancy
CPT/HCPCS: 76805

== ENCOUNTER 2023-06-17 13:52 | Outpatient (CLI) | payer MEDICAID ==
[~2023-06-17] VITALS: Ht 162.6 cm; Wt 74.2 kg
[2023-06-17 14:10] VITALS: BP 114/70
[2023-06-17 14:30] LABS: CLARITY,URINE CLEAR; COLOR,URINE ORANGE
[2023-06-17 14:31] LABS: BACTERIA,URINE TRACE /HPF; BILIRUBIN,URINE 1+ (NEGATIVE); GLUCOSE, URINE (UA) TRACE (NEGATIVE); KETONES,URINE TRACE (NEGATIVE); LEUKOCYTE ESTERASE ,URINE TRACE (NEGATIVE); NITRITE,URINE NEGATIVE (NEGATIVE); PROTEIN,URINE 2+ (NEGATIVE)
[2023-06-17 14:34] VITALS: BP 114/70
--- NOTE | 2023-06-18 08:16 | Physician Query-Final Dx ---
DYANA,06/18/23 0816: Clinic Account Progress/Dx Physician Query: Please give diagnosis Please include # weeks gestation Date of Service Jun 17, 2023 at 13:52 FUENTES LUONG DO 06/22/23 0812: Clinic Account Progress/Dx DIAGNOSIS: Diagnosis 37 week IUP Irregular contractions DYANA,OctJun 18, 2023 08:16 FUENTES LUONG DO Jun 22, 2023 08:12
== END 2023-06-17 15:06 | disposition home or self-care (01) ==
LOC: LDRP 13:52 → WSo 13:52
PROVIDERS: ATTEND Obstetrics & Gynecology
DX: O62.9 Abnormality of forces of labor, unspecified (principal); Z3A.00 Weeks of gestation of pregnancy not specified
CPT/HCPCS: 81000; G0463; 99213

== ENCOUNTER 2023-06-22 08:42 | Outpatient (CLI) | payer MEDICAID ==
[~2023-06-22] VITALS: Ht 162.6 cm; Wt 75.0 kg
[2023-06-23] MEDS ORDERED: BUSP5TAB59 PO (07:55)
[2023-06-23] MEDS ORDERED: PREN1COM15 PO (07:55)
== END 2023-06-23 11:45 | disposition home or self-care (01) ==
LOC: PREOP 08:42
PROVIDERS: ATTEND Obstetrics & Gynecology
DX: Z01.818 Encounter for other preprocedural examination (principal)

== ENCOUNTER 2023-06-30 06:00 | Inpatient (IN) | payer MEDICAID ==
[2023-06-30] VITALS (9 sets, daily range): BP systolic 93–113; BP diastolic 58–72
[~2023-06-30] VITALS: Ht 161 cm; Wt 74.8 kg
[~2023-06-30 06:00] MED LIST changes: +PREN1COM15 PO
[2023-06-30] MEDS ORDERED: CATHETER FLUSH 10 ML SYR IV PRN (07:45)
[2023-06-30] MEDS ORDERED: ceFAZolin INJECTION 1,000 MG in NS (IVPB) 50 ML 50 ML IV ONE (07:45)
[2023-06-30] MEDS ORDERED: CITRIC ACID/SODIUM CITRATE ORAL SOLN 30 ML PO ONE (07:45)
[2023-06-30] MEDS ORDERED: METOCLOPRAMIDE INJ 10 MG/2 ML IV ONE (07:45)
[2023-06-30] MEDS ORDERED: LACTATED RINGERS 1,000 ML 1,000 ML IV PRN ×2 (07:45)
[2023-06-30 07:47] LABS: BASOPHILS % (AUTO) 1 % (0-10); EOSINOPHILS # (AUTO) 0.2 10^3/uL (0.0-0.3); EOSINOPHILS % (AUTO) 2 % (0-10); HEMATOCRIT 31 % (35-52); HEMOGLOBIN 10.7 g/dL (11.5-16.0); LYMPHOCYTES # (AUTO) 2.1 10^3/uL (1.0-4.0); LYMPHOCYTES % (AUTO) 26 % (12-44); MEAN CORPUSCULAR HEMOGLOBIN 35 pg (25-34); MEAN CORPUSCULAR HGB CONC 35 g/dL (32-36); MEAN CORPUSCULAR VOLUME 99 fL (80-99); MEAN PLATELET VOLUME 10.4 fL (9.0-12.2); MONOCYTES # (AUTO) 0.8 10^3/uL (0.0-1.0); MONOCYTES % (AUTO) 10 % (0-12); NEUTROPHILS % (AUTO) 62 % (42-75); PLATELET COUNT 209 10^3/uL (130-400); WHITE BLOOD COUNT 8.2 10^3/uL (4.3-11.0)
[2023-06-30 07:54] LABS: ALBUMIN 3.4 GM/DL (3.2-4.5); BILIRUBIN,TOTAL 0.4 MG/DL (0.1-1.0); CREATININE SERUM 0.63 MG/DL (0.60-1.30); POTASSIUM 3.6 MMOL/L (3.6-5.0); TOTAL PROTEIN 6.3 GM/DL (6.4-8.2)
[2023-06-30] MEDS ORDERED: fentaNYL INJECTION 100 MCG/2 ML VIAL ONE (08:10)
[2023-06-30] MEDS ORDERED: FAMOTIDINE INJ 20MG/2ML VIAL IVP ONE (08:15)
--- NOTE | 2023-06-30 08:17 | History & Physical-OB ---
OB - Chief Complaint & HPI Date/Time Date of Admission: Date of Admission: Jun 30, 2023 at 06:00 Date seen by a Provider: Jun 30, 2023 Time Seen by a Provider: 08:00 Chief Complaint/History OB-Reason for Admission/Chief: Section Hx : 1 Hx Para: 0 Expected Date of Delivery: Jul 19, 2023 Gestational Age in Weeks: 37 Gestational Age in Days: 2 Other reason for admission: Previous , history of uterine rupture Admission Nurse Assessment Rev: Yes Allergies and Home Medications Allergies Coded Allergies: No Known Drug Allergies (Unverified , 12/07/09) Patient Home Medication List Home Medication List Reviewed: Yes Buspirone HCl (Buspirone HCl) 5 Mg Tablet, 5 MG PO, (Reported) Entered as Reported by: Ashley Worley on 06/23/23754 Last Action: Reviewed Vit #105/Iron/FA/Dha (Prena1 True Combo Pack) 30 Mg Iron-1.4 Mg-300 Mg Combo..pkg, 1 EACH PO, (Reported) Entered as Reported by: Ashley Worley on 06/23/23754 Last Action: Reviewed OB - History Hx of Present Care: Yes Ultrasounds: Normal mid trimester US Obstetrical Complications: None Medical Complications: None Obstetrical History Hx Termination: No Hx Multiple Gestation: No Hx Stillbirth: No Hx Complication: No Hx Induced Hypertens: No Hx Maternal Gestational Diabet: No Delivery History Hx Dystocia: No Hx Large For Gestational Age I: No Hx Small for Gestational Age I: No Hx Section: No Hx Vaginal Delivery Post C-Sec: No Hx Blood Disorders: No Adverse Rxn to Tranfusion: No Patient Past Medical History no chronic medical problems Social History/Family History 2nd Hand Smoke Exposure: No Immunizations Influenza Vaccine Up-to-Date: No; Not Current First/Initial COVID19 Vaccine: DENIES Second COVID19 Vaccination: DENIES Third COVID19 Vaccination Date: DENIES Hepatitis A: Yes Hepatitis B: Yes Tetanus Booster (TDap): Unknown OB - Admission Exam Physical Exam Vitals: Vital Signs 06/30/23 07:30 Temp 36.3 Pulse 61 Resp 18 Pulse Ox 98 O2 Delivery Room Air HEENT: NCAT Heart: Rhythm Normal Lungs: Clear Abdomen: Gravid Extremities: Normal Heart Rate: 130's Accelerations: Accelerations Present Decelerations: No Decelerations Short Term Variability: Present Intermediate Variability: Average (6-25) Contractions on Admission: >10 Minutes Apart Intensity: Mild Labs Laboratory Tests Test 06/30/23 07:25 Range/Units White Blood Count 8.2 4.3-11.0 10^3/uL Red Blood Count 3.09 L 3.80-5.11 10^6/uL Hemoglobin 10.7 L 11.5-16.0 g/dL Hematocrit 31 L 35-52 % Mean Corpuscular Volume 99 80-99 fL Mean Corpuscular Hemoglobin 35 H 25-34 pg Mean Corpuscular Hemoglobin Concent 35 32-36 g/dL Red Cell Distribution Width 12.6 10.0-14.5 % Platelet Count 209 130-400 10^3/uL Mean Platelet Volume 10.4 9.0-12.2 fL Immature Granulocyte % (Auto) 1 % Neutrophils (%) (Auto) 62 42-75 % Lymphocytes (%) (Auto) 26 12-44 % Monocytes (%) (Auto) 10 0-12 % Eosinophils (%) (Auto) 2 0-10 % Basophils (%) (Auto) 1 0-10 % Neutrophils # (Auto) 5.0 1.8-7.8 10^3/uL Lymphocytes # (Auto) 2.1 1.0-4.0 10^3/uL Monocytes # (Auto) 0.8 0.0-1.0 10^3/uL Eosinophils # (Auto) 0.2 0.0-0.3 10^3/uL Basophils # (Auto) 0.0 0.0-0.1 10^3/uL Immature Granulocyte # (Auto) 0.0 0.0-0.1 10^3/uL Sodium Level 136 135-145 MMOL/L Potassium Level 3.6 3.6-5.0 MMOL/L Chloride Level 109 H 98-107 MMOL/L Carbon Dioxide Level 19 L 21-32 MMOL/L Anion Gap 8 5-14 MMOL/L Blood Urea Nitrogen 5 L 7-18 MG/DL Creatinine 0.63 0.60-1.30 MG/DL Estimat Glomerular Filtration Rate 123 BUN/Creatinine Ratio 8 Glucose Level 82 70-105 MG/DL Calcium Level 9.0 8.5-10.1 MG/DL Corrected Calcium 9.5 8.5-10.1 MG/DL Total Bilirubin 0.4 0.1-1.0 MG/DL Aspartate Amino Transf (AST/SGOT) 19 5-34 U/L Alanine Aminotransferase (ALT/SGPT) 11 0-55 U/L Alkaline Phosphatase 162 H 40-136 U/L Total Protein 6.3 L 6.4-8.2 GM/DL Albumin 3.4 3.2-4.5 GM/DL OB - Assessment/Plan/Diagnosis Assessment Assessment: section Admission Dx 27 yo @ 37.2 week Previous History of uterine rupture GBS pos Admission Status: Inpatient Order (span 2 midnights) Reason for Inpatient Admission: Repeat Plan Plan: Section FUENTES LUONG DO Jun 30, 2023 08:17
--- NOTE | 2023-06-30 08:23 | Discharge Inst-Women's Service ---
Discharge Inst-Women's Serv Depart Medication/Instructions New, Converted or Re-Newed RX: Transmitted to Pharmacy Final Diagnosis pod 2 rltcs Problems Reviewed?: Yes Consults/Follow Up Additional Follow Up: Yes Orders/Referrals Dr. Colunga in 7-10 days and in 6 weeks Activity Activity: Activity as Tolerated Driving Instructions: No Driving for 1 Week NO SMOKING: NO SMOKING Nothing Inside Vagina: No Douching, No [place], No Tampons Diet Discharge Diet: No Restrictions Symptoms to Report to : Bleeding Excessive, Pain Increased, Fever Over 101 Degrees F, Vaginal Bleeding Increase, Questions/Concerns For Any Problems or Questions: Contact Your Physician Skin/Wound Care Infection Signs and Symptoms: Increased Redness, Foul Odor of Wound, Increased Drainage, Skin Itchy or Has a Rash, Increased Swelling, Temperature Above 101 F Operative Area Clean and Dry: Keep Incision Clean/Dry Stitches/[place]/Dermabond: Dermabond, Care of Stitches Bathing Instructions: FUENTES Rich DO Jun 30, 2023 08:23
[2023-06-30] MEDS ORDERED: IBUP-844 PO (08:24)
[2023-06-30] MEDS ORDERED: DOCU100C37 PO (08:24)
[2023-06-30] MEDS ORDERED: ACHD5005 PO (08:24)
[2023-06-30] MEDS ORDERED: NALOXONE 0.4 MG/ML 1 ML VIAL IV PRN (08:30)
[2023-06-30] MEDS ORDERED: Tetanus/Diphtheria/Pertussis (Acell) ADULT Vaccine 0.5 ML IM SCH (08:30)
[2023-06-30] MEDS ORDERED: MEASLES, MUMPS, RUBELLA VACCINE (MMR) SC SCH (08:30)
[2023-06-30] MEDS ORDERED: ONDANSETRON INJECTION 4 MG/2 ML (SDV) IVP PRN (08:30)
[2023-06-30] MEDS ORDERED: OXYTOCIN DRIP PRE-MIX 500 ML IV SCH (08:30)
[2023-06-30] MEDS ORDERED: OXYTOCIN DRIP PRE-MIX 500 ML IV ONE (08:50)
[2023-06-30] MEDS ORDERED: ONDANSETRON INJECTION 4 MG/2 ML (SDV) ONE (08:50)
[2023-06-30] MEDS ORDERED: PHENYLEPHRINE 100 MCG/ML 10 ML (ANESTHESIA) SYR ONE (08:50)
[2023-06-30] MEDS ORDERED: dexAMETHasone INJ 10 MG/ML 1 ML VIAL ONE (08:50)
[2023-06-30] MEDS ORDERED: BUPIVACAINE 0.5% 30 ML VIAL ONE (08:54)
[2023-06-30] MEDS: HYDROcodone/ACETAMINOPHEN 5 MG/325 MG TABLET PO PRN ×2 (12:32→18:19)
[2023-06-30] MEDS ORDERED: CATHETER FLUSH 10 ML SYR IV SCH (14:00)
[2023-06-30] MEDS: KETOROLAC INJ 30 MG/ML VIAL IV SCH ×2 (14:30→20:24)
--- NOTE | 2023-06-30 14:47 | OPERATIVE REPORT ---
PREOPERATIVE DIAGNOSES: 1. A 27-year-old at 37 weeks and 2 days gestation. 2. Previous section. 3. History of uterine rupture. POSTOPERATIVE DIAGNOSES: 1. A 27-year-old at 37 weeks and 2 days gestation. 2. Previous section. 3. History of uterine rupture. PROCEDURE: Repeat low transverse section. SURGEON: Evin Luong DO CLAY MACHINE OPERATOR: Melanie Talley DNP was necessary for manipulation and retraction throughout the procedure. ANESTHESIA: Spinal. ESTIMATED BLOOD LOSS: 600 mL URINE OUTPUT: 50 mL clear at the end of the procedure. FLUIDS: 800 mL lactated Ringer's solution. FINDINGS: A live male weighing 5 pounds 13 ounces, Apgars of 7 and 8. Grossly normal appearing uterus, bilateral tubes and ovaries. SPECIMEN SENT: Placenta. INDICATIONS FOR PROCEDURE: This 27-year-old female. The patient was sought care in my office. Her was complicated with a documented history of uterine rupture and a previous . Discussed with the patient delivered at 37 rather than 39 weeks due to this complication. Risk of the procedure was discussed with the patient in detail as well as risk of delivery at 37 weeks. After all of her questions were answered, she was agreeable to proceed. Consent was obtained. The patient was taken to the operating room. OPERATIVE REPORT IN DETAIL: Once in the operating room, where spinal analgesia was found to be adequate, was placed in supine position with leftward tilt, prepped and draped in normal sterile fashion. A timeout was performed. Anesthesia was tested. I then made a Pfannenstiel skin incision through the previously existing scar using knife and carried underlying fascia using Bovie cautery. The fascial incision extended laterally using Bovie cautery. Superior aspect of the fascial incision was then grasped with Gregory clamps, tented up and dissected off the underlying rectus muscles. The inferior aspect of the fascial incision was then grasped with Gregory clamps, tented up and dissected off the underlying rectus muscles. Rectus muscles were dissected down the midline, which exposed the peritoneum, which I entered bluntly and extended using blunt traction. Carlitos ring retractor was placed in the peritoneal incision, which offers excellent lateral sidewall retraction. I identified the lower uterine segment was found to be thinned out and make a low transverse incision to the vesicouterine peritoneum and bluntly dissected this off the lower uterine segment, creating a bladder flap and then proceeded with my myotomy until membranes were visualized, at which point I thinned uterine incision laterally and superiorly using bandage scissors. Amniotomy was then performed using Allis clamp. Clear fluid was noted. The was found vertex presentation. With gentle fundal pressure, the infant's head elevated up the incision where delivered through the incision. The nares and oropharynx were bulb suctioned. Anterior and posterior shoulders were delivered. Infant was brought to the operative field where cord was doubly clamped and cut and infant handed off to waiting nurses in attendance. Cord blood collected. Three-vessel cord intact placenta was delivered spontaneously thereafter. IV Pitocin was initiated to facilitate uterine contraction. Uterine fundus confirmed by manual massage. The uterus was then exteriorized and cleared of all endometrial clots and debris. I then proceeded with closing the uterine incision using 0 Vicryl suture in a running locked fashion. Second layer of imbricating 0 Monocryl was placed. Excellent hemostasis was noted after doing this. I then placed the uterus back in the pelvis and copiously irrigated the pelvis using normal saline. Once again there was no active bleeding noted from any of dissection planes. I placed Interceed antiadhesive over my low transverse incision. I removed the Carlitos ring retractor and then proceeded with closing the peritoneum using 3-0 Vicryl suture in a running fashion. The rectus muscles were reapproximated using 3-0 Vicryl suture in interrupted fashion. The fascia was reapproximated using 0 Vicryl suture in a running fashion. The subcutaneous tissue was reapproximated using 3-0 plain in an interrupted subcutaneous stitch and skin reapproximated using 4-0 Monocryl running subcuticular. Dermabond was applied to incision, sterile dressing with adhesive white tape. The patient tolerated the procedure well and sent to recovery area in stable condition. Lap and sponge counts were correct at the end of the procedure. Instrument counts correct as well. Two grams of Ancef were given preoperatively for infection prophylaxis. Job ID: [id number] DocumentID: [id number] Dictated Date: 06/30/2023 09:58:37 Ichthyology Teacher Date: 06/30/2023 14:46:00 Dictated By: EVIN LUONG DO
[2023-06-30] MEDS: DOCUSATE SODIUM 100 MG CAPSULE PO SCH (20:24)
[2023-07-01] MEDS: HYDROcodone/ACETAMINOPHEN 5 MG/325 MG TABLET PO PRN ×5 (00:21→16:47)
[2023-07-01 00:24] VITALS: BP 110/68
[2023-07-01] MEDS: KETOROLAC INJ 30 MG/ML VIAL IV SCH ×2 (02:30→19:59)
[2023-07-01 05:18] VITALS: BP 111/62
[2023-07-01 06:17] LABS: BASOPHILS % (AUTO) 0 % (0-10); EOSINOPHILS # (AUTO) 0.1 10^3/uL (0.0-0.3); EOSINOPHILS % (AUTO) 0 % (0-10); HEMATOCRIT 27 % (35-52); HEMOGLOBIN 9.1 g/dL (11.5-16.0); LYMPHOCYTES # (AUTO) 2.6 10^3/uL (1.0-4.0); LYMPHOCYTES % (AUTO) 17 % (12-44); MEAN CORPUSCULAR HEMOGLOBIN 34 pg (25-34); MEAN CORPUSCULAR HGB CONC 34 g/dL (32-36); MEAN CORPUSCULAR VOLUME 100 fL (80-99); MEAN PLATELET VOLUME 10.5 fL (9.0-12.2); MONOCYTES # (AUTO) 1.3 10^3/uL (0.0-1.0); MONOCYTES % (AUTO) 8 % (0-12); NEUTROPHILS # (AUTO) 11.1 10^3/uL (1.8-7.8); NEUTROPHILS % (AUTO) 73 % (42-75); PLATELET COUNT 189 10^3/uL (130-400); WHITE BLOOD COUNT 15.1 10^3/uL (4.3-11.0)
[2023-07-01 08:17] VITALS: BP 123/81
[2023-07-01] MEDS: DOCUSATE SODIUM 100 MG CAPSULE PO SCH ×2 (08:18→20:05)
[2023-07-01] MEDS: IBUPROFEN 600 MG TABLET PO SCH ×3 (08:18→20:05)
--- NOTE | 2023-07-01 08:41 | Postpartum Progress Note ---
Note Note Day # 1 Subjective: Patient is without complaints. Ambulating, voiding. Tolerating a regular diet without nausea or vomiting. Normal lochia. Pain is well controlled with oral pain medications. Objective: Physical Exam: General - Alert and oriented, no apparent distress Abdomen - Soft, appropriately tender to palpation, non-distended, fundus firm at umbilicus Extremities - no edema, negative Caryn's bilaterally Incision- c/d/i Assessment: POD 1 RLTCS Acute blood loss anemia Plan: Routine care. Encourage breast feeding. Encourage ambulation. Ferrous sulfate supplementation. Plan for discharge tomorrow Vitals - Labs Vital Signs - I&O Vital Signs Date Time Temp Pulse Resp B/P (MAP) Pulse Ox O2 Delivery O2 Flow Rate FiO2 07/01/23 08:17 36.8 70 18 123/81 (95) 99 Room Air 07/01/23 05:18 36.7 53 18 111/62 (78) 99 Room Air 07/01/23 00:24 36.5 52 16 110/68 (82) 99 Room Air 06/30/23 20:22 36.5 59 16 103/61 (75) 99 Room Air 06/30/23 16:00 36.8 63 18 113/72 (86) 98 Room Air 06/30/23 12:00 36.6 60 18 105/67 (80) 100 Room Air 06/30/23 10:23 Room Air 06/30/23 10:23 35.7 14 108/58 (75) 98 Room Air 06/30/23 10:08 Room Air 06/30/23 10:08 35.3 18 94/72 (79) 97 Room Air 06/30/23 09:53 35.5 14 93/66 (75) 98 Room Air 06/30/23 09:53 Room Air 06/30/23 09:38 Room Air 06/30/23 09:38 35.4 14 98/58 (71) 100 Room Air 06/30/23 09:23 Room Air 06/30/23 09:23 35.6 14 94/65 (75) 98 Room Air I & O 07/01/23 07:00 Intake Total 2500 ml Output Total 4050 ml Balance -1550 ml Labs Laboratory Tests 07/01/23 06:00: White Blood Count 15.1H, Red Blood Count 2.65L, Hemoglobin 9.1L, Hematocrit 27L, Mean Corpuscular Volume 100H, Mean Corpuscular Hemoglobin 34, Mean Corpuscular Hemoglobin Concent 34, Red Cell Distribution Width 12.5, Platelet Count 189, Mean Platelet Volume 10.5, Immature Granulocyte % (Auto) 1, Neutrophils (%) (Auto) 73, Lymphocytes (%) (Auto) 17, Monocytes (%) (Auto) 8, Eosinophils (%) (Auto) 0, Basophils (%) (Auto) 0, Neutrophils # (Auto) 11.1H, Lymphocytes # (Auto) 2.6, Monocytes # (Auto) 1.3H, Eosinophils # (Auto) 0.1, Basophils # (Auto) 0.0, Immature Granulocyte # (Auto) 0.1 FUENTES LUONG DO Jul 01, 2023 8:41 am
--- NOTE | 2023-07-01 13:01 | Anesthesia-Regional Post-Op ---
Regional Patient Condition Mental Status: Alert, Oriented x3 Circulation: Same as Pre-Op Headache: Absent Sensation: Full Recovery Motor Block: Absent Post Op Complications Complications None Follow Up Care/Instructions Patient Instructions None needed. Anesthesia/Patient Condition Patient is doing well, no complaints, stable vital signs, no apparent adverse anesthesia problems. No complications reported per nursing. NARCISO MONTES DE OCA CRNA Jul 01, 2023 13:01
[2023-07-01 13:30] VITALS: BP 132/80
[2023-07-01 20:05] VITALS: BP 125/81
[2023-07-02 01:23] VITALS: BP 108/67
[2023-07-02] MEDS: IBUPROFEN 600 MG TABLET PO SCH ×2 (01:23→07:41)
[2023-07-02] MEDS: HYDROcodone/ACETAMINOPHEN 5 MG/325 MG TABLET PO PRN ×2 (03:43→12:09)
[2023-07-02] MEDS: DOCUSATE SODIUM 100 MG CAPSULE PO SCH (07:51)
[2023-07-02 08:00] VITALS: BP 115/72
--- NOTE | 2023-07-02 08:33 | Postpartum Progress Note ---
Post Op Post-operative Day #2 Subjective: Patient is without complaints. Ambulating, voiding after [place] removed. Tolerating a regular diet without nausea or vomiting. Normal lochia. Pain is well controlled with oral pain medications. Passing flatus. Breast-feeding going well Objective: Signs stable afebrile Physical Exam: General - Alert and oriented, no apparent distress For symmetrical no erythema or edema or engorgement Abdomen - Soft, appropriately tender to palpation, non-distended, fundus firm at umbilicus Incision - clean, dry and intact; no erythema or induration, no drainage Lochia minimal Extremities - no edema, negative Caryn's bilaterally Assessment: [] post-operative day # 2, status post Repeat low-transverse section Recovering well, hemodynamically stable Plan: Routine post-operative care. Encourage breast feeding. Encourage ambulation. VTE prophylaxis: SCDs. Ferrous sulfate supplementation. Plan for discharge [] Vitals - Labs Vital Signs - I&O Vital Signs Date Time Temp Pulse Resp B/P (MAP) Pulse Ox O2 Delivery O2 Flow Rate FiO2 07/02/23 08:00 36.0 52 18 115/72 (86) 98 Room Air 07/02/23 07:41 36.0 07/02/23 01:23 36.1 75 18 108/67 (81) 99 Room Air 07/01/23 20:05 36.1 69 18 125/81 (96) 99 Room Air 07/01/23 13:30 36.2 60 18 132/80 (97) 99 Room Air I & O 07/02/23 07:00 Intake Total 600 ml Output Total 400 ml Balance 200 ml GALI CANO DO Jul 02, 2023 08:33
== END 2023-07-02 12:40 | disposition home or self-care (01) | DRG 787 ==
LOC: LDRP 06:00
PROVIDERS: ADMIT Obstetrics & Gynecology; ATTEND Obstetrics & Gynecology
PROC: 10D00Z1 Extraction of Products of Conception, Low, Open Approach (ICD-10-PCS; principal; 2023-06-30 08:25)
DX: O34.211 Maternal care for low transverse scar from previous cesarean delivery (principal); D62 Acute posthemorrhagic anemia; Z37.0 Single live birth; O99.824 Streptococcus B carrier state complicating childbirth; Z3A.37 37 weeks gestation of pregnancy; O90.81 Anemia of the puerperium
CPT/HCPCS: 36415; 80053; 85025; 86850; 86900; 86901; 88307; 94664